=== PATIENT | female | born 1990 | race Caucasian/White ===

== ENCOUNTER → 2020-11-16 | Outpatient (CLI) | payer OTHER, SELFPAY ==
[2020-11-16 09:18] VITALS: BMI 28.7
[2020-11-16 13:23] LABS: Protein, Urine (Random) 19.4 mg/dL (<11.9); Protein:Creat Ratio 127 mg/g CRE (0-200)
[2020-11-16 13:27] LABS: Amphetamine Urine VISTA NEGATIVE (<1000 ng/mL); Barbiturate Urine VISTA NEGATIVE (< 200 ng/mL); Benzodiazepine Urine VISTA NEGATIVE (< 200 ng/mL); Cocaine Urine VISTA NEGATIVE (< 300 ng/mL); Ecstacy Urine VISTA POSITIVE (< 500 ng/mL); Methadone Urine VISTA NEGATIVE (< 300 ng/mL); PCP Urine VISTA NEGATIVE (< 25 ng/mL); THC Urine VISTA NEGATIVE (< 50 ng/mL); Vista UDS pH Range 6
[2020-11-17 20:08] LABS: Chlamydia By Nucleic Acid AMP Negative (Negative)
[2020-11-17 22:40] LABS: Gonococcus By Nucleic Acid AMP Negative (Negative)
== END | disposition home or self-care (01) ==
PROVIDERS: Referring Provider Obstetrics & Gynecology; Visit Provider Obstetrics & Gynecology
DX: O09.90 Supervision of high risk pregnancy, unspecified, unspecified trimester (principal); O10.019 Pre-existing essential hypertension complicating pregnancy, unspecified trimester; Z3A.00 Weeks of gestation of pregnancy not specified
CPT/HCPCS: 80307; 82570; 84156; 87077; 87086; 87088; 87186; 87491; 87591

== ENCOUNTER → 2020-12-07 09:19 | Outpatient (CLI) | payer OTHER, SELFPAY ==
[2020-11-16 09:18] VITALS: BMI 28.7
[2020-12-07 09:52] LABS: Absolute Lymphocyte Count 1.54 X10^3/uL (0.83-4.51); Absolute Neutrophil Count 5.9 X10^3/uL (2.0-7.7); Basophil# 0.02 X10^3/uL; Basophil% 0.2 % (0-1); Eosinophil# 0.07 X10^3/uL; Eosinophils% 0.8 % (0-5); Hematocrit 38.5 % (37-47); Hemoglobin 12.9 g/dL (12.0-15.0); Lymphocyte # 1.54 X10^3/ul (0.83-4.51); Lymphocyte % 18.6 % (19-41); Mean Corp Hgb Conc 33.5 g/dL (32-36); Mean Corpuscular Hgb 29.5 pg (27.0-32.0); Mean Corpuscular Volume 88.1 fL (81-99); Mean Platelet Vol. 10.1 fl (6.2-12.0); Monocyte# 0.67 X10^3/uL; Monocyte% 8.1 % (0-10); NRBC Flagged by Analyzer 0 % (0-5); Neutrophil # 5.94 X10^3/uL (2.7-7.7); Neutrophil % 71.8 % (47-70); Platelet Count 266 K/mm3 (150-450); RBC Distribution Width CV 13.6 % (11.6-14.6); RBC Distribution Width SD 43.8 fl (35.1-43.9); Red Blood Count 4.37 M/mm3 (4.2-5.4); White Blood Count 8.3 K/mm3 (4.4-11.0)
[2020-12-07 10:18] LABS: ALB/GLOB Ratio 0.8 RATIO (0.9-2.4); AST(SGOT) 14 U/L (15-37); Alanine Aminotransfer ALT/SGPT 17 U/L (13-56); Albumin, Serum 2.8 g/dL (3.2-5.0); Alkaline Phosphatase 67 U/L (45-117); Anion Gap 3 (5-15); BUN 7 mg/dL (7-18); BUN/Creat Ratio 12.9 RATIO (10-20); Calcium,Total 8.3 mg/dL (8.5-10.1); Chloride 108 mmol/L (98-107); Creatinine, Serum 0.54 mg/dL (0.55-1.02); EST Glomerular Filtration Rate 141 mL/min (>60); Est Glom Filt Rate - Afr Amer 171 mL/min (>60); Globulin 3.6 g/dL (2.2-4.2); Glucose 112 mg/dL (74-106); Potassium 3.5 mmol/L (3.5-5.1); Protein, Total 6.4 g/dL (6.4-8.2); Sodium Level 139 mmol/L (136-145)
[2020-12-07 10:47] LABS: NATERA MAILED SPECIMEN
[2020-12-07 12:29] LABS: HIV - WCH Non-Reactive (Nonreactive); Hepatitis B Surface Antigen Non-Reactive (Nonreactive); Hepatitis C Antibody Non-Reactive (Nonreactive); Rubella IgG Reactive (Nonreactive); Syphilis Antibodies Non-reactive
== END ==
PROVIDERS: Referring Provider Obstetrics & Gynecology; Visit Provider Obstetrics & Gynecology
DX: O09.90 Supervision of high risk pregnancy, unspecified, unspecified trimester (principal); O10.911 Unspecified pre-existing hypertension complicating pregnancy, first trimester; Z3A.00 Weeks of gestation of pregnancy not specified
CPT/HCPCS: 36415; 80053; 85025; 86703; 86762; 86780; 86803; 86850; 86900; 86901; 87340

== ENCOUNTER → 2021-04-05 09:54 | Outpatient (CLI) | payer OTHER, SELFPAY ==
[2021-04-05 10:35] LABS: Absolute Lymphocyte Count 1.39 X10^3/uL (0.83-4.51); Absolute Neutrophil Count 8.4 X10^3/uL (2.0-7.7); Basophil# 0.02 X10^3/uL; Basophil% 0.2 % (0-1); Eosinophil# 0.07 X10^3/uL; Eosinophils% 0.7 % (0-5); Hematocrit 32.5 % (37-47); Lymphocyte # 1.39 X10^3/ul (0.83-4.51); Lymphocyte % 13.1 % (19-41); Mean Corp Hgb Conc 33.8 g/dL (32-36); Mean Corpuscular Hgb 29.6 pg (27.0-32.0); Mean Corpuscular Volume 87.6 fL (81-99); Mean Platelet Vol. 10.4 fl (6.2-12.0); Monocyte# 0.64 X10^3/uL; NRBC Flagged by Analyzer 0 % (0-5); Neutrophil % 79.4 % (47-70); Platelet Count 262 K/mm3 (150-450); RBC Distribution Width CV 13.2 % (11.6-14.6); RBC Distribution Width SD 42.4 fl (35.1-43.9); Red Blood Count 3.71 M/mm3 (4.2-5.4); White Blood Count 10.6 K/mm3 (4.4-11.0)
[2021-04-05 10:51] LABS: Glucose Challenge Gest 1H 50g 163 mg/dL (70-140)
== END ==
PROVIDERS: Referring Provider Obstetrics & Gynecology; Visit Provider Obstetrics & Gynecology
DX: O09.90 Supervision of high risk pregnancy, unspecified, unspecified trimester (principal); Z3A.00 Weeks of gestation of pregnancy not specified
CPT/HCPCS: 36415; 82950; 85025

== ENCOUNTER → 2021-04-12 06:45 | Outpatient (CLI) | payer OTHER, SELFPAY ==
[2021-04-12 08:20] LABS: Glucose GTT-Gestation. Fasting 92 mg/dL (<105)
[2021-04-12 09:37] LABS: Glucose GTT-Gestational 1 Hr 185 mg/dL (<190)
[2021-04-12 09:40] LABS: Glucose GTT-Gestational 2 Hr 183 mg/dL (<165)
[2021-04-12 10:58] LABS: Glucose GTT-Gestational 3 Hr 132 L (<145)
== END ==
PROVIDERS: Nurse Practitioner Women's Health; Referring Provider Obstetrics & Gynecology; Visit Provider Obstetrics & Gynecology
DX: Z13.1 Encounter for screening for diabetes mellitus (principal)
CPT/HCPCS: 82951; 82952

== ENCOUNTER 2021-05-03 13:00 | Outpatient (RCR) | payer OTHER, SELFPAY | END 2021-05-09 23:59 | LOC: DC 13:00 | PROVIDERS: Visit Provider Nurse Practitioner Women's Health | DX: O24.419 Gestational diabetes mellitus in pregnancy, unspecified control (principal); Z71.3 Dietary counseling and surveillance; Z3A.00 Weeks of gestation of pregnancy not specified | CPT/HCPCS: 97802 ==

== ENCOUNTER → 2021-05-03 13:48 | Outpatient (CLI) | payer OTHER, SELFPAY ==
--- NOTE | 2021-05-03 13:51 | US_ITS ---
EXAM: US , LIMITED : 1992 CLINICAL INDICATION: growth TECHNIQUE: Real-time limited ultrasound of the maternal uterus with image documentation. This report was created using [employer]ug[employer] report generation technology. COMPARISON: None. FINDINGS: FETUS: There is a single intrauterine gestation. The weight is 2040 g. GESTATIONAL AGE: Gestational age 32 weeks 2 days. RAYMOND: RAYMOND is 06/26/2021. BPD: Biparietal diameter is 8.2 cm age 33 weeks 0 days. HC: Head circumference is 30 cm age 33 weeks 1 day. AC: Abdominal circumference 29.2 cm age 33 weeks 1 day. FL: Femur length is 6.0 cm age 31 weeks 2 days. POSITION: The fetus is in cephalic position. HEART RATE: heart rate 142 bpm. PLACENTA: Placenta is anterior. AMNIOTIC FLUID: JABARI measures 18.1 cm. CERVIX: The cervix measures 3.5 cm. US/OB Limited With Biometrics IMPRESSION: Intrauterine gestation with an average ultrasound age 32 weeks 5 days and ultrasound estimated due date of 06/23/2021 at 1738 Reported and signed by: Ry Cramer MD Electronically Signed: Ry Cramer MD at 17:37 EST Tel , Service support ,
== END ==
PROVIDERS: Referring Provider Obstetrics & Gynecology; Visit Provider Obstetrics & Gynecology
DX: O09.93 Supervision of high risk pregnancy, unspecified, third trimester (principal); O16.3 Unspecified maternal hypertension, third trimester; Z3A.32 32 weeks gestation of pregnancy
CPT/HCPCS: 76816

== ENCOUNTER → 2021-05-10 07:54 | Outpatient (CLI) | payer OTHER, SELFPAY ==
--- NOTE | 2021-05-10 08:00 | US_ITS ---
STUDY: SECOND AND THIRD TRIMESTER OBSTETRICAL ULTRASOUND - LIMITED REASON FOR EXAM: Female, 31 years old WEEKLY JABARI LMP: 09/19/2020. PRIOR ULTRASOUND: Comparison is made with prior examination dated 05/03/2021. TECHNIQUE: Transabdominal TECHNICAL QUALITY: Adequate. FINDINGS: There is a single intrauterine fetus. The fetus is in a cephalic presentation. There is demonstrated cardiac activity with a heart rate of 131 bpm. There is a normal amniotic fluid volume. The largest amniotic fluid pocket measures 7.9 cm. The amniotic fluid index (JABARI) is 17.5 cm. The placenta is anterior in location and is not low lying. There are Grade 1 placental changes. The cervix measures 4.1 cm in length. BIOMETRY: Age by LMP: 33 weeks, 2 days. RAYMOND by LMP: 06/26/2021. US/OB Limited (No Biometrics) IMPRESSION: Normal amniotic fluid. Electronically Signed: Dl Stevens MD at 15:14 EST , Service support ,
== END ==
PROVIDERS: Visit Provider Obstetrics & Gynecology
DX: O10.913 Unspecified pre-existing hypertension complicating pregnancy, third trimester (principal); Z3A.33 33 weeks gestation of pregnancy
CPT/HCPCS: 76815

== ENCOUNTER → 2021-05-17 07:57 | Outpatient (CLI) | payer OTHER, SELFPAY ==
--- NOTE | 2021-05-17 08:00 | US_ITS ---
STUDY: SECOND AND THIRD TRIMESTER OBSTETRICAL ULTRASOUND - LIMITED REASON FOR EXAM: Female, 31 years old WEEKLY JABARI LMP: 09/19/2020. PRIOR ULTRASOUND: Comparison is made with prior examination of 05/10/2021. TECHNIQUE: Transabdominal TECHNICAL QUALITY: Adequate. FINDINGS: There is a single intrauterine fetus. The fetus is in a cephalic presentation. There is demonstrated cardiac activity with a heart rate of 141 bpm. There is a normal amniotic fluid volume. The largest amniotic fluid pocket measures 5.2 cm. The amniotic fluid index (JABARI) is 14.3 cm. The placenta is anterior in location and is not low lying. There are Grade 1 placental changes. The cervix measures 3.5 cm in length. BIOMETRY: Age by LMP: 34 weeks, 2 days. RAYMOND by LMP: 06/26/2021. US/OB Limited (No Biometrics) IMPRESSION: Normal amniotic fluid. Electronically Signed: Dl Stevens MD at 15:14 EST , Service support ,
== END ==
PROVIDERS: Referring Provider Obstetrics & Gynecology; Visit Provider Obstetrics & Gynecology
DX: Z34.93 Encounter for supervision of normal pregnancy, unspecified, third trimester (principal); Z3A.34 34 weeks gestation of pregnancy
CPT/HCPCS: 76815

== ENCOUNTER → 2021-05-24 07:56 | Outpatient (CLI) | payer OTHER, SELFPAY ==
--- NOTE | 2021-05-24 08:04 | US_ITS ---
STUDY: SECOND AND THIRD TRIMESTER OBSTETRICAL ULTRASOUND - LIMITED REASON FOR EXAM: Female, 31 years old WEEKLY JABARI LMP: 09/19/2020. PRIOR ULTRASOUND: Comparison is made with prior examination dated 05/17/2021. TECHNIQUE: Transabdominal TECHNICAL QUALITY: Adequate. FINDINGS: There is a single intrauterine fetus. The fetus is in a cephalic presentation. There is demonstrated cardiac activity with a heart rate of 132 bpm. There is a normal amniotic fluid volume. The largest amniotic fluid pocket measures 5.4 cm. The amniotic fluid index (JABARI) is 11.1 cm. The placenta is anterior in location and is not low lying. There are Grade 1 placental changes. The cervix measures 4.5 cm in length. BIOMETRY: Age by LMP: 35 weeks, 2 days. RAYMOND by LMP: 06/26/2021. US/OB Limited (No Biometrics) IMPRESSION: Normal amniotic fluid. Electronically Signed: Dl Stevens MD at 11:50 EST , Service support ,
== END ==
PROVIDERS: Referring Provider Obstetrics & Gynecology; Visit Provider Obstetrics & Gynecology
DX: Z34.93 Encounter for supervision of normal pregnancy, unspecified, third trimester (principal); Z3A.35 35 weeks gestation of pregnancy
CPT/HCPCS: 76815

== ENCOUNTER → 2021-05-31 12:02 | Outpatient (CLI) | payer OTHER, SELFPAY ==
--- NOTE | 2021-05-31 12:18 | US_ITS ---
STUDY: SECOND AND THIRD TRIMESTER OBSTETRICAL ULTRASOUND REASON FOR EXAM: Female, 31 years old GROWTH . Amniotic fluid index. LMP: 09/19/2020. TECHNIQUE: Transabdominal TECHNICAL QUALITY: Adequate. PRIOR ULTRASOUND: Comparison is made with prior examination dated 05/24/2021. FINDINGS: There is a single intrauterine fetus. The fetus is in a cephalic presentation. There is demonstrated cardiac activity with a heart rate of 127 bpm. There is a normal amniotic fluid volume. The largest amniotic fluid pocket measures 5.5 cm. The amniotic fluid index (JABARI) is 11.9 cm. The placenta is anterior in location and is not low lying. There are Grade 1 placental changes. The cervix measures 3.3 cm in length. The adnexal regions are not visualized. BIOMETRY: BPD: 8.91 cm: 36 weeks, 0 days HC: 32.81 cm: 37 weeks, 1 days AC: 31.88 cm: 35 weeks, 5 days FL: 6.67 cm: 34 weeks, 2 days CI: 78% FL/BPD: 75% FL/HC: FL/AC: 21% HC/AC: 1.03 age by current US: 36 weeks, 2 days. RAYMOND by current US: 06/26/2021. Estimated weight: 2710 grams, +/- 407 grams, 33 %. age by prior US: 36 weeks, 5 days. RAYMOND by prior US: 06/23/2021. Age by LMP: 36 weeks, 2 days. RAYMOND by LMP: 06/26/2021. US/OB Limited With Biometrics IMPRESSION: Single live intrauterine gestation with mean gestational age of 36 weeks and 5 days. The measurements obtained today fall within the normal expected range. Electronically Signed: Dl Stevens MD at 9:38 EST , Service support ,
[2021-05-31 12:24] LABS: Absolute Neutrophil Count 8.8 X10^3/uL (2.0-7.7); Basophil# 0.03 X10^3/uL; Basophil% 0.3 % (0-1); Eosinophil# 0.08 X10^3/uL; Eosinophils% 0.7 % (0-5); Hematocrit 33.1 % (37-47); Hemoglobin 10.6 g/dL (12.0-15.0); Lymphocyte % 16.2 % (19-41); Mean Corpuscular Hgb 26.5 pg (27.0-32.0); Mean Corpuscular Volume 82.8 fL (81-99); Monocyte# 0.83 X10^3/uL; Monocyte% 7.1 % (0-10); NRBC Flagged by Analyzer 0 % (0-5); Neutrophil # 8.76 X10^3/uL (2.7-7.7); Neutrophil % 74.8 % (47-70); Platelet Count 256 K/mm3 (150-450); RBC Distribution Width CV 13.3 % (11.6-14.6); RBC Distribution Width SD 40.1 fl (35.1-43.9); White Blood Count 11.7 K/mm3 (4.4-11.0)
[2021-05-31 12:46] LABS: Creatinine, Urine (random) < 13.00 mg/dL (NO RANGE EST.); Protein, Urine (Random) < 6.0 mg/dL (<11.9)
[2021-05-31 13:06] LABS: ALB/GLOB Ratio 0.6 RATIO (0.9-2.4); AST(SGOT) 19 U/L (15-37); Alanine Aminotransfer ALT/SGPT 22 U/L (13-56); Albumin, Serum 2.4 g/dL (3.2-5.0); Alkaline Phosphatase 167 U/L (45-117); Anion Gap 10 (5-15); BUN 9 mg/dL (7-18); BUN/Creat Ratio 15.6 RATIO (10-20); Calcium,Total 8.6 mg/dL (8.5-10.1); Chloride 105 mmol/L (98-107); Creatinine, Serum 0.58 mg/dL (0.55-1.02); EST Glomerular Filtration Rate 131 mL/min (>60); Est Glom Filt Rate - Afr Amer 159 mL/min (>60); Globulin 4.2 g/dL (2.2-4.2); Glucose 87 mg/dL (74-106); Potassium 4.1 mmol/L (3.5-5.1); Protein, Total 6.6 g/dL (6.4-8.2); Sodium Level 139 mmol/L (136-145)
== END ==
PROVIDERS: Obstetrics & Gynecology; Referring Provider Obstetrics & Gynecology; Visit Provider Obstetrics & Gynecology
DX: O09.93 Supervision of high risk pregnancy, unspecified, third trimester (principal); O16.3 Unspecified maternal hypertension, third trimester; Z3A.36 36 weeks gestation of pregnancy
CPT/HCPCS: 36415; 76816; 80053; 82570; 84156; 85025; 87081

== ENCOUNTER → 2021-06-06 12:24 | Outpatient (CLI) | payer OTHER, SELFPAY ==
--- NOTE | 2021-06-06 12:27 | US_ITS ---
STUDY: SECOND AND THIRD TRIMESTER OBSTETRICAL ULTRASOUND - LIMITED REASON FOR EXAM: Female, 31 years old JABARI check LMP: 09/19/2020 PRIOR ULTRASOUND: 05/31/2021 TECHNIQUE: Transabdominal TECHNICAL QUALITY: Adequate. FINDINGS: There is a single intrauterine fetus. The fetus is in a cephalic presentation. There is demonstrated cardiac activity with a heart rate of 125 bpm. There is a normal amniotic fluid volume. The largest amniotic fluid pocket measures 5.8 cm. The amniotic fluid index (JABARI) is 16.5 cm. Both representing an increase since the previous study. The placenta is anterior in location and is not low lying. There are Grade 1 placental changes. The cervix measures 3.1 cm in length. EGA by LMP is 37 weeks 1 day with RAYMOND of 06/26/2021 US/OB Limited (No Biometrics) IMPRESSION: Single live intrauterine at 37 weeks 1 day by LMP. Heart rate at 125 bpm. Largest pocket of fluid is 5.8 cm with JABARI total of 16.5 cm. Both representing an increase since the previous study Electronically Signed: Alvin Cuevas MD at 13:44 EST , Service support ,
[2021-06-06 17:25] LABS: Protein, Urine (Random) 19.2 mg/dL (<11.9); Protein:Creat Ratio 480 mg/g CRE (0-200)
== END ==
PROVIDERS: Referring Provider Obstetrics & Gynecology; Visit Provider Obstetrics & Gynecology
DX: O10.913 Unspecified pre-existing hypertension complicating pregnancy, third trimester (principal); Z3A.37 37 weeks gestation of pregnancy
CPT/HCPCS: 76815; 82570; 84156

== ENCOUNTER 2021-06-07 18:53 | Inpatient (IN) | payer OTHER, SELFPAY ==
[2021-06-07] VITALS (27 sets, daily range): BP systolic 138–171; BP diastolic 79–95; PULSE 59–83; RESP 16–18; TEMP 36.2–37.2; O2SAT 98–100; BMI 30.7
[2021-06-07] MEDS: Lactated Ringers 1,000 ML 50 ML IV (19:35)
[2021-06-07 19:56] LABS: Bedside Glucose 124 mg/dL (70-110)
[2021-06-07 20:10] LABS: Absolute Lymphocyte Count 2.13 X10^3/uL (0.83-4.51); Basophil# 0.04 X10^3/uL; Basophil% 0.4 % (0-1); Eosinophils% 0.9 % (0-5); Hematocrit 29.2 % (37-47); Hemoglobin 9.5 g/dL (12.0-15.0); Lymphocyte # 2.13 X10^3/ul (0.83-4.51); Lymphocyte % 18.9 % (19-41); Mean Corp Hgb Conc 32.5 g/dL (32-36); Mean Corpuscular Hgb 26.8 pg (27.0-32.0); Mean Corpuscular Volume 82.3 fL (81-99); Mean Platelet Vol. 11.5 fl (6.2-12.0); Monocyte# 0.92 X10^3/uL; Monocyte% 8.2 % (0-10); NRBC Flagged by Analyzer 0 % (0-5); Neutrophil # 8.02 X10^3/uL (2.7-7.7); Platelet Count 234 K/mm3 (150-450); RBC Distribution Width CV 13.7 % (11.6-14.6); RBC Distribution Width SD 40.9 fl (35.1-43.9); Red Blood Count 3.55 M/mm3 (4.2-5.4); White Blood Count 11.3 K/mm3 (4.4-11.0)
[2021-06-07] MEDS: 0.9% Normal Saline Single 100 ML IV.SOLN. INTRA-UTER (20:19)
[2021-06-07] MEDS: Oxytocin 30 units/NS 500 ml 30 UNITS/500 ML IV.SOLN IV (20:29)
[2021-06-07] MEDS: Labetalol 100 MG Tablet PO (20:48)
[2021-06-07 21:16] LABS: Bedside Glucose 91 mg/dL (70-110)
[2021-06-07] MEDS: NIFEdipine 10 MG Capsule PO (22:19)
[2021-06-07] MEDS: Magnesium Sulfate 4gm/100mL 4 GM/100 ML IV.SOLN. IV ×2 (22:24→22:48)
[2021-06-07] MEDS: Magnesium Sulfate 20 GM/500 ML BAG IV (23:02)
[2021-06-08] VITALS (70 sets, daily range): BP systolic 113–154; BP diastolic 56–86; PULSE 59–90; RESP 16–18; TEMP 35.9–37; O2SAT 97–100
[2021-06-08 01:25] LABS: Bedside Glucose 104 mg/dL (70-110)
[2021-06-08 05:45] LABS: Bedside Glucose 116 mg/dL (70-110)
[2021-06-08] MEDS: Ondansetron 4 MG/2 ML Vial IV ×2 (06:30→12:18)
[2021-06-08] MEDS: 0.9% Saline Lock 10 ML Syringe IV ×2 (06:30→12:18)
--- NOTE | 2021-06-08 07:37 | HP.PCM.OB_ITS ---
HPI - General General Date of Admission: 06/07/21 HPI Narrative LYLE JACINTO, is a 31 F who presents for IOL sec chtn with SI preeclampsia. elevated bps upon admission eventually signifcant enough to start magnesium and treat with procardia. no castellano bv n v or ruq pain Maternal Data Information RYAMOND Calculator Estimated Delivery Date Method Current WG Current Estimate 06/26/21 LMP (Certain) 37w 3d PFSH FOR[facility], [facility]–1983 Medical History (Updated 06/08/21 @ 07:[address] Lesley Ferguson MD) Gestational diabetes HTN (hypertension) Pre-eclampsia Home Medications docosahexaenoic acid 200 mg capsule 200 mg PO DAILY 08/10/20 [History Last Taken 1 Day Ago ~06/06/21] famotidine 20 mg tablet 20 mg PO DAILY PRN 08/10/20 [History Last Taken 06/07/21 12:00] labetalol 100 mg tablet 100 mg PO BID 08/10/20 [History Last Taken 06/07/21 12:00] blood sugar diagnostic #100 ea 04/12/21 [Rx Last Taken Unknown] blood-glucose meter #1 ea 04/12/21 [Rx Last Taken Unknown] aspirin 81 mg chewable tablet 81 mg PO DAILY 04/14/21 [History Last Taken 06/07/21 12:00] Allergy/AdvReac Type Severity Reaction Status Date / Time No Known Allergies Allergy Verified 06/07/21 19:32 Family History Grandmother Diabetes Kidney disease Grandfather Parkinsons disease Mother Scoliosis Father Hypertension Hyperlipidemia Surgical History History of oral surgery Social History household members: spouse current occupational status: employed 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 history of recent travel: No sexually active: Yes Smoking Status: Never smoker alcohol intake: current alcohol intake frequency: a few times a month substance use type: does not use diet: vegetarian what type of physical activity do you participate in: aerobics frequency: 3-4 times per week seatbelt use: always do you feel safe at home: Yes additional social history: - Adelfo History 1 Elective abortions Hx Para 0 Spontaneous abortions Hx # Term Pregnancies Ectopic pregnancies Hx # Pregnancies Multiple births # of living children Visit Details Expected Delivery Route/Plan Labor Preferences- CB/BF classes: enc labor support person: Vicente labor intervention preferences: [] pain management options preferred: epidural if needed cut cord/dad catch: [] : [] PP control planned: [] discussed possible routes of delivery and associated risks: [] special requests: [] Plans covid status: vaccinated flu vaccine: given tdap vaccine: due rhogam: na LARC form signed: declined movement and labor precautions reviewed. Problem list reviewed and updated with the most current plan of care details and appropriate orders placed. Relevant counseling for the gestational age provided. Continue routine care and follow up unless otherwise noted in visit notes/problem list details OB Flowsheet Initial Weight: 164 lb Date -?-?-?-?-?-?-?-?-?-?-?-?- EGA Weight BP Urine Prot -?-?-?-?-?-?-?-?-?-?-?-?- Glucose FHR FuHt Pres Dilation -?-?-?-?-?-?-?-?-?-?-?-?- Effaced St Visit Note 11/16/20 -?-?-?-?-?-?-?-?-?-?-?-?- 8w 2d 164 lb 6 oz (+6 oz) 148/96 -?-?-?-?-?-?-?-?-?-?-?-?- 175 -?-?-?-?-?-?-?-?-?-?-?-?- GP - CRL 17mm co nsistent with LMP 12/14/20 -?-?-?-?-?-?-?-?-?-?-?-?- 12w 2d 162 lb 2 oz (-1 lb 14 oz) 138/90 Negative -?-?-?-?-?-?-?-?-?-?-?-?- Negative 160 -?-?-?-?-?-?-?-?-?-?-?-?- GP - no cramping . Small amount of spotting on Saturday. Anatomy scan ordered. 01/11/21 -?-?-?-?-?-?-?-?-?-?-?-?- 16w 2d 164 lb 4 oz (+4 oz) 138/78 Negative -?-?-?-?-?-?-?-?-?-?-?-?- Negative 148 -?-?-?-?-?-?-?-?-?-?-?-?- MH-NO VB, LOF. A natomy US 02/01 with MFM 02/08/21 -?-?-?-?-?-?-?-?-?-?-?-?- 20w 2d 166 lb 4 oz (+2 lb 4 oz) 132/86 Negative -?-?-?-?-?-?-?-?-?-?-?-?- Negative 140 -?-?-?-?-?-?-?-?-?-?-?-?- GP - no cramping or bleeding. +FM. Increased milky discharge consistent with physiologic discharge. 03/08/21 -?-?-?-?-?-?-?-?-?-?-?-?- 24w 2d 169 lb 2 oz (+5 lb 2 oz) 120/80 Negative -?-?-?-?-?-?-?-?-?-?-?-?- Negative 140 24 -?-?-?-?-?-?-?-?-?-?-?-?- SM- no vb lof go od fm no regular ctx 04/05/21 -?-?-?-?-?-?-?-?-?-?-?-?- 28w 2d 176 lb (+12 lb) 130/80 Negative -?-?-?-?-?-?-?-?-?-?-?-?- Negative 145 28 -?-?-?-?-?-?-?-?-?-?-?-?- SM- no vb lof go od fm no reuglar ctx 04/14/21 -?-?-?-?-?-?-?-?-?-?-?-?- 29w 4d 174 lb (+10 lb) 124/80 -?-?-?-?-?-?-?-?-?-?-?-?- -?-?-?-?-?-?-?-?-?-?-?-?- 04/19/21 -?-?-?-?-?-?-?-?-?-?-?-?- 30w 2d 174 lb (+10 lb) 100/72 100/72 -?-?-?-?-?-?-?-?-?-?-?-?- -?-?-?-?-?-?-?-?-?-?-?-?- 05/02/21 -?-?-?-?-?-?-?-?-?-?-?-?- 32w 1d -?-?-?-?-?-?-?-?-?-?-?-?- -?-?-?-?-?-?-?-?-?-?-?-?- 05/03/21 -?-?-?-?-?-?-?-?-?-?-?-?- 32w 2d 174 lb 2 oz (+10 lb 2 oz) 120/90 Negative -?-?-?-?-?-?-?-?-?-?-?-?- Negative 130 -?-?-?-?-?-?-?-?-?-?-?-?- JV- glucose leve ls well controlled. Dr. Baig following. nst reactive. bp stable. planning for 38 week IOL 05/10/21 -?-?-?-?-?-?-?-?-?-?-?-?- 33w 2d 173 lb 2 oz (+9 lb 2 oz) 130/78 Negative -?-?-?-?-?-?-?-?-?-?-?-?- Negative 140 -?-?-?-?-?-?-?-?-?-?-?-?- MH-NST only reac tive 05/17/21 -?-?-?-?-?-?-?-?-?-?-?-?- 34w 2d 174 lb (+10 lb) 118/68 Trace -?-?-?--?-?-?-?-?-?-?-?-?- Negative 146 -?-?-?-?-?-?-?-?-?-?-?-?- MH-No Vb, LOF. G ood FM. Reactive NST. Growth US at 36wk. Glucose readings WNL 05/24/21 -?-?-?-?-?-?-?-?-?-?-?-?- 35w 2d 177 lb (+13 lb) 102/70 Negative -?-?-?-?-?-?-?-?-?-?-?-?- Negative 150 -?-?-?-?-?-?-?-?-?-?-?-?- MH-NST only reac tive. US today pending 05/31/21 -?-?-?-?-?-?-?-?-?-?-?-?- 36w 2d 177 lb 4 oz (+13 lb 4 oz) 130/90 Negative -?-?-?-?-?-?-?-?-?-?-?-?- Negative 120 36 Cephalic -?-?-?-?-?-?-?-?-?-?-?-?- JV- NST reactive . GBS collected. pressure elevated more this week today and at home. PIH labs with KS:Cr ratio ordered. 06/06/21 -?-?-?-?-?-?-?-?-?-?-?-?- 37w 1d 179 lb (+15 lb) 138/82 Negative -?-?-?-?-?-?-?-?-?-?-?-?- Negative 130 Cephalic 1 -?-?-?-?-?-?-?-?-?-?-?-?- 50 -2 SM- no vb lof good fm no reuglar ctx discussed IOL 06/07/21 -?-?-?-?-?-?-?-?-?-?-?-?- 37w 2d 178 lb 12.718 oz (+14 lb 12.718 oz) 139/89 166/95 165/93 171/94 159/89 159/89 143/81 143/81 138/79 138/79 138/81 138/81 145/81 145/81 146/72 146/72 121/69 121/69 134/83 134/83 118/59 118/59 129/78 129/78 132/73 132/73 136/86 136/86 142/79 142/79 -?-?-?-?-?-?-?-?-?-?-?-?- -?-?-?-?-?-?-?-?-?-?-?-?- NST FHR Rate Baby A Baseline: 130 Variability:: Moderate Accelerations:: 15 x 15 Decelerations:: None NST Reactive:: Yes FHR Category:: Category I Uterine Activity:: irregular ROS Constitutional Constitutional: Reports systems reviewed and no addt'l complaints, except as documented Eyes Eyes: Denies change in vision ENT HEENT: Reports systems reviewed and no addt'l complaints, except as documented; Denies headache(s) Cardiovascular Cardiovascular: Reports systems reviewed and no addt'l complaints, except as documented; Denies chest pain or dyspnea Respiratory/Chest Respiratory/Chest: Reports systems reviewed and no addt'l complaints, except as documented Gastrointestinal Gastrointestinal: Reports systems reviewed and no addt'l complaints, except as documented; Denies abdominal pain Genitourinary Genitourinary: Reports systems reviewed and no addt'l complaints, except as documented, contractions Details: present (irregular) and movement Details: present; Denies dysuria or genital lesions Musculoskeletal Musculoskeletal: Reports systems reviewed and no addt'l complaints, except as documented Neurologic Neurologic: Reports systems reviewed and no addt'l complaints, except as documented Endocrine Endocrinology: Reports systems reviewed and no addt'l complaints, except as documented Vital Signs Vital Signs Vital Signs: 06/07/21 19:26 06/07/21 20:34 06/07/21 20:35 Temperature 98.8 F 99.0 F 98.7 F Temperature Source Temporal Temporal Pulse Rate 81 64 Respiratory Rate Respiratory Effort Respiratory Depth Respiratory Pattern Blood Pressure 139/89 H 166/95 H Blood Pressure Mean BP Systolic 139 166 BP Diastolic 89 95 Blood Pressure Source Blood Pressure Position Blood Pressure Location Pulse Ox 99 99 Oxygen Delivery Method 06/07/21 21:46 06/07/21 21:47 06/07/21 22:04 Temperature 98.8 F Temperature Source Pulse Rate 59 L 60 61 Respiratory Rate Respiratory Effort Respiratory Depth Respiratory Pattern Blood Pressure 165/93 H 171/94 H Blood Pressure Mean BP Systolic 165 171 BP Diastolic 93 94 Blood Pressure Source Blood Pressure Position Blood Pressure Location Pulse Ox 99 Oxygen Delivery Method 06/07/21 22:18 06/07/21 22:25 06/07/21 22:32 Temperature 98.7 F Temperature Source Temporal Pulse Rate 67 74 72 Respiratory Rate 18 Respiratory Effort Normal Respiratory Depth Normal Respiratory Pattern Normal Blood Pressure 159/89 H 159/89 H Blood Pressure Mean 112 BP Systolic 159 BP Diastolic 89 Blood Pressure Source Monitor Blood Pressure Position Semi-Fowlers Blood Pressure Location Right Arm Pulse Ox 98 98 Oxygen Delivery Method Room Air 06/07/21 22:37 06/07/21 22:38 06/07/21 22:39 Temperature 97.8 F Temperature Source Temporal Pulse Rate 82 71 77 Respiratory Rate 18 Respiratory Effort Normal Non-Labored Respiratory Depth Normal Respiratory Pattern Normal Blood Pressure 143/81 H 143/81 H Blood Pressure Mean 101 BP Systolic 143 BP Diastolic 81 Blood Pressure Source Monitor Blood Pressure Position Semi-Fowlers Blood Pressure Location Right Arm Pulse Ox 99 99 Oxygen Delivery Method Room Air 06/07/21 22:42 06/07/21 22:47 06/07/21 22:52 Temperature Temperature Source Pulse Rate 74 83 80 Respiratory Rate Respiratory Effort Respiratory Depth Respiratory Pattern Blood Pressure Blood Pressure Mean BP Systolic BP Diastolic Blood Pressure Source Blood Pressure Position Blood Pressure Location Pulse Ox 98 99 98 Oxygen Delivery Method 06/07/21 22:55 06/07/21 22:57 06/07/21 23:02 Temperature Temperature Source Pulse Rate 81 73 73 Respiratory Rate 18 Respiratory Effort Respiratory Depth Respiratory Pattern Blood Pressure 138/79 H Blood Pressure Mean 98 BP Systolic 138 BP Diastolic 79 Blood Pressure Source Monitor Blood Pressure Position Semi-Fowlers Blood Pressure Location Right Arm Pulse Ox 99 98 98 Oxygen Delivery Method Room Air 06/07/21 23:07 06/07/21 23:09 06/07/21 23:10 Temperature 97.2 F L Temperature Source Temporal Pulse Rate 69 67 67 Respiratory Rate 18 Respiratory Effort Normal Non-Labored Respiratory Depth Normal Respiratory Pattern Normal Blood Pressure 138/81 H 138/81 H Blood Pressure Mean 100 BP Systolic 138 BP Diastolic 81 Blood Pressure Source Monitor Blood Pressure Position Semi-Fowlers Blood Pressure Location Right Arm Pulse Ox 99 98 Oxygen Delivery Method Room Air 06/07/21 23:11 06/07/21 23:12 06/07/21 23:17 Temperature 97.2 F L Temperature Source Pulse Rate 72 71 Respiratory Rate Respiratory Effort Respiratory Depth Respiratory Pattern Blood Pressure Blood Pressure Mean BP Systolic BP Diastolic Blood Pressure Source Blood Pressure Position Blood Pressure Location Pulse Ox 100 99 Oxygen Delivery Method 06/07/21 23:40 06/07/21 23:41 06/07/21 23:42 Temperature 97.2 F L 97.2 F L Temperature Source Temporal Pulse Rate 64 64 Respiratory Rate 16 Respiratory Effort Normal Non-Labored Respiratory Depth Normal Respiratory Pattern Normal Blood Pressure 145/81 H Blood Pressure Mean 102 BP Systolic 145 BP Diastolic 81 Blood Pressure Source Monitor Blood Pressure Position Semi-Fowlers Blood Pressure Location Right Arm Pulse Ox 99 99 Oxygen Delivery Method Room Air 06/08/21 00:12 06/08/21 00:22 06/08/21 01:00 Temperature 97.1 F L 97.2 F L 97.4 F L Temperature Source Temporal Temporal Pulse Rate 60 59 L Respiratory Rate 16 16 Respiratory Effort Normal Non-Labored Respiratory Depth Normal Respiratory Pattern Normal Blood Pressure 146/72 H 121/69 H Blood Pressure Mean 96 86 BP Systolic 146 121 BP Diastolic 72 69 Blood Pressure Source Monitor Monitor Blood Pressure Position Semi-Fowlers Left Lateral Blood Pressure Location Right Arm Right Arm Pulse Ox 97 99 Oxygen Delivery Method Room Air Room Air 06/08/21 01:01 06/08/21 02:07 06/08/21 02:08 Temperature 97.5 F L 97.5 F L Temperature Source Temporal Temporal Temporal Pulse Rate 72 72 Respiratory Rate 18 Respiratory Effort Respiratory Depth Respiratory Pattern Blood Pressure 134/83 H 134/83 H Blood Pressure Mean 100 BP Systolic 134 BP Diastolic 83 Blood Pressure Source Monitor Blood Pressure Position Semi-Fowlers Blood Pressure Location Right Arm Pulse Ox 99 99 99 Oxygen Delivery Method Room Air 06/08/21 03:02 06/08/21 03:03 06/08/21 03:06 Temperature 97.5 F L 97.5 F L Temperature Source Temporal Pulse Rate 76 76 Respiratory Rate 16 Respiratory Effort Normal Non-Labored Respiratory Depth Normal Respiratory Pattern Normal Blood Pressure 118/59 L 118/59 L Blood Pressure Mean 78 BP Systolic 118 BP Diastolic 59 Blood Pressure Source Monitor Blood Pressure Position Right Lateral Blood Pressure Location Left Arm Pulse Ox 99 Oxygen Delivery Method Room Air 06/08/21 03:53 06/08/21 03:54 06/08/21 03:57 Temperature 97.7 F L 97.7 F L Temperature Source Temporal Pulse Rate 77 77 Respiratory Rate 16 Respiratory Effort Respiratory Depth Respiratory Pattern Blood Pressure 129/78 H 129/78 H Blood Pressure Mean 95 BP Systolic 129 BP Diastolic 78 Blood Pressure Source Blood Pressure Position Blood Pressure Location Pulse Ox 98 Oxygen Delivery Method Room Air 06/08/21 05:03 06/08/21 05:04 06/08/21 06:09 Temperature 97.3 F L 97.5 F L Temperature Source Temporal Temporal Temporal Pulse Rate 90 90 Respiratory Rate 16 18 Respiratory Effort Normal Non-Labored Respiratory Depth Normal Respiratory Pattern Normal Blood Pressure 132/73 H 136/86 H Blood Pressure Mean 92 102 BP Systolic 132 136 BP Diastolic 73 86 Blood Pressure Source Monitor Monitor Blood Pressure Position Right Lateral Sitting Blood Pressure Location Right Arm Right Arm Pulse Ox 98 98 100 Oxygen Delivery Method Room Air Room Air 06/08/21 07:09 06/08/21 07:10 06/08/21 07:22 Temperature 97.6 F L 97.6 F L 97.5 F L Temperature Source Temporal Temporal Pulse Rate 76 78 78 Respiratory Rate 16 Respiratory Effort Normal Non-Labored Respiratory Depth Normal Respiratory Pattern Normal Blood Pressure 142/79 H 142/79 H Blood Pressure Mean 100 BP Systolic 142 BP Diastolic 79 Blood Pressure Source Monitor Blood Pressure Position Semi-Fowlers Blood Pressure Location Right Arm Pulse Ox 99 99 Oxygen Delivery Method Room Air Weight Weight: 178 lb 12.718 oz Body Mass Index (BMI) 30.7 Physical Exam Const alert, oriented x3, no apparent distress and healthy appearing HEENT normocephalic and moist oral mucous membranes Head and Scalp: atraumatic Neck full ROM, no lymphadenopathy, supple and thyroid normal General: trachea midline Lymph Lymphatic: no lymphadenopathy noted Chest inspection of chest normal Resp normal respiratory effort Cardio regular rate GI normal to inspection, nondistended, normoactive bowel sounds, soft to palpation and non-tender Inspection: gravid external exam normal Manual OB Exam: estimated gestational size appropriate, presentation cephalic, dilated, effaced and station Extremity normal to inspection General Extremity: Negative for edema Skin no rashes or lesions noted Neuro no focal motor deficits and deep tendon reflexes 2+ bilaterally Motor Exam: strength 5/5 throughout and clonus absent Psych mental status grossly normal Labs Labs Labs: Blood Type O POSITIVE Antibody Screen NEGATIVE Hct 29.2 % (37-47) L Hgb 9.5 g/dL (12.0-15.0) L Obstetrics US Syphilis Total Ab Non-reactive Rubella IgG Antibody Reactive (Nonreactive) Hep Bs Antigen Non-Reactive (Nonreactive) Neisseria gonorrhoeae DNA (VIKTOR) Negative (Negative) HIV 1&2 Antibody Non-Reactive (Nonreactive) Glucose 1 Hr 50 gm 163 mg/dL (70-140) H Miscellaneous Test Assessment & Plan (1) Gestational diabetes: QUALIFIERS: Gestational diabetes mellitus control: diet-controlled Trimester: third trimester Qualified Code(s): O24.410 - Gestational diabetes mellitus in , diet controlled COMMENT: nutrition and Endo referrals sent. diet controlled (2) Vegetarian diet: COMMENT: Encourages protein intake. 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 GBS neg (5) Chronic hypertension: COMMENT: controlled with labetolol; baseline labs with NOB. Growth at 32w & 34w nl. NSTs weekly at 32w. Delivery at 38w. (6) Pre-eclampsia superimposed on chronic hypertension: COMMENT: IOL pit fb, started on magnesium sulfate and procardia
--- NOTE | 2021-06-08 07:39 | PN_ITS ---
Progress Note fb came out overnight, doing well, had pitocin washout due to arrest of dilation at 4-5 cm current tracing: FHT: 130 Moderate variability reactive no decelerations category I tracing [place]: q 2-4 Contractions reviewed tracing abnormalities since last note: no significant A/P: pit fb and AROM PRN
[2021-06-08] MEDS: Lactated Ringers 500 ML 999 ML IV (09:29)
[2021-06-08 09:35] LABS: Bedside Glucose 105 mg/dL (70-110)
[2021-06-08] MEDS: Magnesium Sulfate 20 GM/500 ML BAG IV (09:57)
[2021-06-08] MEDS: fentaNYL-bupivacaine (epidural) 100 ML BAG EPIDURAL ×3 (10:50→21:33)
[2021-06-08] MEDS: Labetalol 100 MG Tablet PO ×2 (11:05→22:23)
--- NOTE | 2021-06-08 14:23 | NURSING ---
dose reduced to 1gm/hr per physician order
[2021-06-08 14:30] LABS: Bedside Glucose 98 mg/dL (70-110)
[2021-06-08 17:50] LABS: Bedside Glucose 124 mg/dL (70-110)
[2021-06-08 18:25] LABS: Bedside Glucose 101 mg/dL (70-110)
[2021-06-08 19:51] LABS: Bedside Glucose 111 mg/dL (70-110)
[2021-06-08] MEDS: Lactated Ringers 1,000 ML 200 ML IV (20:22)
[2021-06-08] MEDS: Oxytocin 30 units/NS 500 ml 30 UNITS/500 ML IV.SOLN 18 UNITS IV (20:23)
[2021-06-08 20:31] LABS: Bedside Glucose 95 mg/dL (70-110)
[2021-06-08 21:41] LABS: Bedside Glucose 107 mg/dL (70-110)
--- NOTE | 2021-06-08 23:03 | NURSING ---
per connect charting, pitocin was increased to 14ml/hr at 1829 and then increased to 16ml/hr at 1910, titrations were not documented on AUG by previous shift
[2021-06-08 23:50] LABS: Bedside Glucose 90 mg/dL (70-110)
[2021-06-08 23:50] LABS: Bedside Glucose 95 mg/dL (70-110)
[2021-06-09] VITALS (92 sets, daily range): BP systolic 104–173; BP diastolic 44–99; PULSE 60–97; RESP 14–16; TEMP 36.1–37.3; O2SAT 90–100
[2021-06-09] MEDS: Ondansetron 4 MG/2 ML Vial IV (01:05)
[2021-06-09] MEDS: Magnesium Sulfate 20 GM/500 ML BAG IV ×3 (01:19→20:43)
[2021-06-09] MEDS: Lactated Ringers 1,000 ML 50 ML IV (02:01)
--- NOTE | 2021-06-09 02:05 | EX.PCM.OBRPT ---
Assessment & Plan (1) Pre-eclampsia superimposed on chronic hypertension: COMMENT: IOL pit fb, started on magnesium sulfate and procardia (2) Chronic hypertension: COMMENT: controlled with labetolol; baseline labs with NOB. Growth at 32w & 34w nl. NSTs weekly at 32w. Delivery at 38w. (3) : QUALIFIERS: Weeks of gestation: 37 weeks Qualified Code(s): Z3A.37 - 37 weeks gestation of COMMENT: IOL 06/12/21 @ 7am declines carrier, low risk, declined afp; NL anatomy. GBS neg (4) Supervision of high risk , antepartum: COMMENT: PRR RAYMOND 06/26/21 gisel Sow Spouse Adelfo (5) Vegetarian diet: COMMENT: Encourages protein intake. 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 diet controlled (7) Vaginal delivery: COMMENT: gisel Sow IOL chtn with SI preeclampsia 37 SM Maternal Data Information RAYMOND Calculator Estimated Delivery Date Method Current WG Current Estimate 06/26/21 LMP (Certain) 37w 4d Vaginal Delivery Operative Information Date of Procedure: 06/09/21 Pre-Operative Diagnosis: IOL chtn si preeclampsia Post-Operative Diagnosis: same Surgery / Procedure Performed: Spontaneous Vaginal Delivery Type of Anesthesia: Epidural Special Medications: none Estimated Blood Loss: 100 Fluids Replaced: crystalloid Findings Description of Procedure: Patient began pushing and delivered the head in the [SILVA] presentation. The head was delivered atraumatically . The anterior and posterior shoulders delivered without complication followed by the rest of the infant and the infant was placed on the maternal abdomen. Delayed cord clamping was employed for approximately 60 seconds. Cord was clamped and cut and gentle traction was applied to the cord and the placenta delivered spontaneously immediately following it was noted to be intact with three-vessel cord. The perineum and vagina were inspected and noted to have a first-degree perineal laceration repaired in the usual fashion with 3-0 Vicryl Rapide. EBL was [100 cc]. Patient and infant tolerated delivery well. Presentation: SILVA Amniotic Membrane Rupture Type: Artificial Amniotic Fluid Description: Clear Placental Delivery Description: Spontaneous Placenta Disposition: [facility] Cord Vessel Description: 3 Vessels Cord Entanglement: None Delayed Cord Clamping: Yes Post Vaginal Delivery Medications Given After Delivery: IV Pitocin Episiotomy Description: None Laceration: Perineal Extension/lac and 1st degree Complication Complications: None Procedures Urinary/Genital [id number]: [id number] Vaginal Delivery [facility]
--- NOTE | 2021-06-09 02:07 | PCM.DC ---
Discharge Instructions Diet Discharge Diet: No restrictions Activity Discharge Activity: Return to Normal Activity, May Not Drive (while taking narcotic pain medications.) and May Shower May resume sexual activity in: 4-6 weeks Dressing / Incision Call your doctor if your incision/area has: Continuous Slow Oozing, Sudden Increased Bleeding, Increased Pain/ Swelling, Increased Redness and Foul Smelling Discharge Follow Up Care Please Follow Up With: Lesley Ferguson MD When: Call [phone] to make an appointment with your doctor in 6 weeks. If you had elevated blood pressure or 4th degree laceration, you will need to be seen in 2 weeks. Test Results: Test results from this visit will be discussed in further detail at your follow-up appointment, if applicable. Discharge Plan Admission Admit Date/Time: 06/07/21 18:53 Primary Reason for Your Visit: vaginal delivery Attending Provider: Lesley Ferguson Discharge Orders/Prescriptions Prescriptions: No Action labetalol 100 mg tablet 100 mg PO BID RF: 0 DHA 200 mg capsule 200 mg PO DAILY RF: 0 famotidine [Pepcid] 20 mg tablet 20 mg PO DAILY PRN (Reason: heartburn) RF: 0 aspirin 81 mg tablet,chewable 81 mg PO DAILY RF: 0 (DME) [employer] Test Strip See Rx Instructions .ROUTE .MEDSUPPLY Qty: 100 RF: 4 (DME) blood-glucose meter [[employer] Blood Glucose System] Kit See Rx Instructions .ROUTE .MEDSUPPLY Qty: 1 RF: 0 Referrals / Follow Up: MYRIAM CISNEROS [Other] Disposition Disposition (needs filled in before D/C Order can be placed): Home, Self Care
[2021-06-09] MEDS: fentaNYL-bupivacaine (epidural) 100 ML BAG EPIDURAL (02:35)
[2021-06-09 02:41] LABS: Bedside Glucose 105 mg/dL (70-110)
[2021-06-09 02:41] LABS: Bedside Glucose 132 mg/dL (70-110)
[2021-06-09 02:41] LABS: Bedside Glucose 115 mg/dL (70-110)
[2021-06-09] MEDS: Silver Nitrate (BKC) 2 EACH TOPICAL (03:20)
[2021-06-09] MEDS: Oxytocin 30 units/NS 500 ml 30 UNITS/500 ML IV.SOLN 334 UNITS IV (03:23)
[2021-06-09] MEDS: Carboprost Tromethamine 250 MCG/ML Ampul IM (03:35)
[2021-06-09 03:51] LABS: Bedside Glucose 116 mg/dL (70-110)
[2021-06-09] MEDS: proCHLORPERazine 10 MG/2 ML Vial IV (04:33)
[2021-06-09] MEDS: 0.9% Saline Lock 10 ML Syringe IV ×2 (04:34→05:00)
[2021-06-09] MEDS: Labetalol (Prefilled) 20 MG/4 ML IV (04:57)
[2021-06-09 05:09] LABS: Hematocrit 31.5 % (37-47); Hemoglobin 10.3 g/dL (12.0-15.0); Mean Corp Hgb Conc 32.7 g/dL (32-36); Mean Corpuscular Hgb 26.9 pg (27.0-32.0); Mean Corpuscular Volume 82.2 fL (81-99); Mean Platelet Vol. 11.1 fl (6.2-12.0); Platelet Count 242 K/mm3 (150-450); RBC Distribution Width SD 41.2 fl (35.1-43.9); Red Blood Count 3.83 M/mm3 (4.2-5.4); White Blood Count 21.3 K/mm3 (4.4-11.0)
[2021-06-09] MEDS: Labetalol 100 MG Tablet PO ×2 (10:28→22:03)
[2021-06-09] MEDS: Prenatal Vits Tablet 1 TABLET PO (10:29)
[2021-06-09] MEDS: Magnesium Sulfate 4gm/100mL 4 GM/100 ML IV.SOLN. IV (11:56)
[2021-06-09 12:16] LABS: ALB/GLOB Ratio 0.5 RATIO (0.9-2.4); AST(SGOT) 23 U/L (15-37); Alanine Aminotransfer ALT/SGPT 18 U/L (13-56); Albumin, Serum 1.9 g/dL (3.2-5.0); Alkaline Phosphatase 145 U/L (45-117); Anion Gap 8 (5-15); BUN 5 mg/dL (7-18); BUN/Creat Ratio 8.7 RATIO (10-20); Calcium,Total 7.2 mg/dL (8.5-10.1); Chloride 105 mmol/L (98-107); Creatinine, Serum 0.57 mg/dL (0.55-1.02); EST Glomerular Filtration Rate 132 mL/min (>60); Est Glom Filt Rate - Afr Amer 160 mL/min (>60); Estimated Creatinine Clearance 125.75 ml/min; Globulin 3.6 g/dL (2.2-4.2); Glucose 131 mg/dL (74-106); Magnesium 5.6 mg/dL (1.6-2.6); Protein, Total 5.5 g/dL (6.4-8.2); Sodium Level 138 mmol/L (136-145)
--- NOTE | 2021-06-09 12:46 | PCM.PN.OB ---
Subjective Subjective Blood pressures within normal limits, patient feels out of it but no different than she did when she was on magnesium previously. Nursing noted increase in hyperreflexia and clonus therefore mag level was drawn and was noted to be low therapeutic 4 g bolus was given and we are continuing 2 g an hour. Objective Data Objective Data Vital Signs: Vital Signs Temp Pulse Resp BP Pulse Ox 98.0 F 74 14 125/67 H 98 06/09/21 12:07 06/09/21 12:31 06/09/21 12:31 06/09/21 12:31 06/09/21 12:31 Oxygen Delivery Method Room Air Weight: 178 lb 12.718 oz Body Mass Index (BMI) 30.7 Intake & Output: Intake and Output for Last 24 Hours 06/07/21 06/08/21 06/09/21 23:59 23:59 23:59 Intake Total 308.90 / 308.90 3041.65 / 3041.65 2353.25 / 2353.25 Output Total 3505 / 3505 2325 / 2325 Balance 308.90 / 308.90 -463.35 / -463.35 28.25 / 28.25 Lab / Micro Data Result Diagrams: 06/09/21 05:00 06/09/21 11:42 Labs: Laboratory Results - last 24 hr 06/08/21 14:05: POC Glucose 98 06/08/21 17:16: POC Glucose 124 H 06/08/21 18:20: POC Glucose 101 06/08/21 19:28: POC Glucose 111 H 06/08/21 20:24: POC Glucose 95 06/08/21 21:31: POC Glucose 107 06/08/21 22:29: POC Glucose 95 06/08/21 23:41: POC Glucose 90 06/09/21 00:29: POC Glucose 105 06/09/21 01:37: POC Glucose 115 H 06/09/21 02:38: POC Glucose 132 H 06/09/21 03:35: POC Glucose 116 H 06/09/21 05:00: WBC 21.3 H, RBC 3.83 L, Hgb 10.3 L, Hct 31.5 L, MCV 82.2, MCH 26.9 L, MCHC 32.7, RDW Std Deviation 41.2, RDW Coeff of Erasmo 14.0, Plt Count 242, MPV 11.1 06/09/21 11:42: Sodium 138, Potassium 4.0, Chloride 105, Carbon Dioxide 25.0, Anion Gap 8, BUN 5 L, Creatinine 0.57, Estim Creat Clear Calc 125.75, Est GFR (MDRD) Af Amer 160, Est GFR (MDRD) Non-Af 132, BUN/Creatinine Ratio 8.7 L, Glucose 131 H, Calcium 7.2 L, Magnesium 5.6 H*, Total Bilirubin 0.80, AST 23, ALT 18, Alkaline Phosphatase 145 H, Total Protein 5.5 L, Albumin 1.9 L, Globulin 3.6, Albumin/Globulin Ratio 0.5 L Micro: Microbiology 06/07/21 19:38 Nasal Secretion SARS-CoV-2 Antigen (Rapid) - Final Physical Exam Const alert and oriented x3 HEENT normocephalic Head and Scalp: normal to inspection and normocephalic Neuro Neuro Narrative: 2 clonus right 3 left 3-4+ reflexes Assessment & Plan (1) Vaginal delivery: COMMENT: boy Sow IOL chtn with SI preeclampsia 37 SM (2) Pre-eclampsia superimposed on chronic hypertension: COMMENT: IOL pit fb, started on magnesium sulfate and procardia (3) Chronic hypertension: COMMENT: controlled with labetolol; baseline labs with NOB. Growth at 32w & 34w nl. NSTs weekly at 32w. Delivery at 38w. (4) Gestational diabetes: QUALIFIERS: Gestational diabetes mellitus control: diet-controlled Trimester: third trimester Qualified Code(s): O24.410 - Gestational diabetes mellitus in , diet controlled COMMENT: nutrition and Endo referrals sent. diet controlled
[2021-06-10] VITALS (7 sets, daily range): BP systolic 112–144; BP diastolic 53–79; PULSE 60–79; RESP 15–18; TEMP 36.5–37.1; O2SAT 96–98
[2021-06-10 07:26] LABS: Bedside Glucose 90 mg/dL (70-110)
--- NOTE | 2021-06-10 09:23 | PCM.PN.OB ---
Subjective Subjective Patient doing well without complaints. Tolerating PO. Ambulating and voiding without difficulty. feeding well. Denies chest pain, shortness of breath, calf pain/swelling, fevers, chills, lightheadedness. Objective Data Objective Data Vital Signs: Vital Signs Temp Pulse Resp BP Pulse Ox 98.5 F 64 18 140/70 H 98 06/10/21 08:22 06/10/21 08:22 06/10/21 08:22 06/10/21 08:22 06/10/21 08:22 Oxygen Delivery Method Room Air Weight: 178 lb 12.718 oz Body Mass Index (BMI) 30.7 Intake & Output: Intake and Output for Last 24 Hours 06/08/21 06/09/21 06/10/21 23:59 23:59 23:59 Intake Total 3041.65 / 3041.65 3172.42 / 3172.42 526.67 / 526.67 Output Total 3505 / 3505 4375 / 4375 300 / 300 Balance -463.35 / -463.35 -1202.58 / -1202.58 226.67 / 226.67 Lab / Micro Data Result Diagrams: 06/09/21 05:00 06/09/21 11:42 Labs: Laboratory Results - last 24 hr 06/09/21 11:42: Sodium 138, Potassium 4.0, Chloride 105, Carbon Dioxide 25.0, Anion Gap 8, BUN 5 L, Creatinine 0.57, Estim Creat Clear Calc 125.75, Est GFR (MDRD) Af Amer 160, Est GFR (MDRD) Non-Af 132, BUN/Creatinine Ratio 8.7 L, Glucose 131 H, Calcium 7.2 L, Magnesium 5.6 H*, Total Bilirubin 0.80, AST 23, ALT 18, Alkaline Phosphatase 145 H, Total Protein 5.5 L, Albumin 1.9 L, Globulin 3.6, Albumin/Globulin Ratio 0.5 L 06/10/21 07:23: POC Glucose 90 Micro: Microbiology 06/07/21 19:38 Nasal Secretion SARS-CoV-2 Antigen (Rapid) - Final ROS Constitutional Constitutional: Reports systems reviewed and no addt'l complaints, except as documented Cardiovascular Cardiovascular: Reports systems reviewed and no addt'l complaints, except as documented Respiratory/Chest Respiratory/Chest: Reports systems reviewed and no addt'l complaints, except as documented Gastrointestinal Gastrointestinal: Reports systems reviewed and no addt'l complaints, except as documented Physical Exam Const alert, oriented x3 and no apparent distress HEENT Head and Scalp: atraumatic Resp normal respiratory effort GI soft to palpation and non-tender Bimanual Exam - Vag & Uterus: uterus non-tender Uterus Palpation: uterus fundus firm (below Umbilicus) Assessment & Plan (1) Vaginal delivery: COMMENT: boy Sow IOL chtn with SI preeclampsia 37 SM (2) Pre-eclampsia superimposed on chronic hypertension: COMMENT: IOL pit fb, started on magnesium sulfate and procardia (3) Chronic hypertension: COMMENT: controlled with labetolol; baseline labs with NOB. Growth at 32w & 34w nl. NSTs weekly at 32w. Delivery at 38w. (4) Gestational diabetes: QUALIFIERS: Gestational diabetes mellitus control: diet-controlled Trimester: third trimester Qualified Code(s): O24.410 - Gestational diabetes mellitus in , diet controlled COMMENT: nutrition and Endo referrals sent. diet controlled PLAN: s/p PPD # 1 1. routine post delivery care 2. breast feeding- support given 3. rh positive 4. rubella immune
[2021-06-10] MEDS: Labetalol 100 MG Tablet PO ×2 (10:44→21:30)
[2021-06-10] MEDS: Prenatal Vits Tablet 1 TABLET PO (10:44)
[2021-06-11 01:58] VITALS: BP 145/65; PULSE 61; RESP 16; TEMP 37.1
--- NOTE | 2021-06-11 03:54 | PCM.PN.OB ---
Subjective Subjective Patient doing well without complaints. Tolerating PO. Ambulating and voiding without difficulty. feeding well. Denies chest pain, shortness of breath, calf pain/swelling, fevers, chills, lightheadedness. Objective Data Objective Data Vital Signs: Vital Signs Temp Pulse Resp BP Pulse Ox 98.8 F 61 16 145/65 H 97 06/11/21 01:58 06/11/21 01:58 06/11/21 01:58 06/11/21 01:58 06/10/21 17:13 Oxygen Delivery Method Room Air Weight: 178 lb 12.718 oz Body Mass Index (BMI) 30.7 Intake & Output: Intake and Output for Last 24 Hours 06/09/21 06/10/21 06/11/21 23:59 23:59 23:59 Intake Total 3172.42 / 3172.42 526.67 / 526.67 Output Total 4375 / 4375 300 / 300 Balance -1202.58 / -1202.58 226.67 / 226.67 Lab / Micro Data Result Diagrams: 06/09/21 05:00 06/09/21 11:42 Labs: Laboratory Results - last 24 hr 06/10/21 07:23: POC Glucose 90 Micro: Microbiology 06/07/21 19:38 Nasal Secretion SARS-CoV-2 Antigen (Rapid) - Final ROS Constitutional Constitutional: Reports systems reviewed and no addt'l complaints, except as documented Cardiovascular Cardiovascular: Reports systems reviewed and no addt'l complaints, except as documented Respiratory/Chest Respiratory/Chest: Reports systems reviewed and no addt'l complaints, except as documented Gastrointestinal Gastrointestinal: Reports systems reviewed and no addt'l complaints, except as documented Physical Exam Const alert, oriented x3 and no apparent distress HEENT Head and Scalp: atraumatic Resp normal respiratory effort GI soft to palpation and non-tender Bimanual Exam - Vag & Uterus: uterus non-tender Uterus Palpation: uterus fundus firm (below Umbilicus) Assessment & Plan (1) Vaginal delivery: COMMENT: boy Sow IOL chtn with SI preeclampsia 37 SM (2) Pre-eclampsia superimposed on chronic hypertension: COMMENT: labetalol increased to 200 BID. s/p IOL pit fb, s/p magnesium sulfate and procardia (3) Chronic hypertension: COMMENT: controlled with labetolol; baseline labs with NOB. Growth at 32w & 34w nl. NSTs weekly at 32w. Delivery at 38w. PLAN: s/p PPD # 2 1. routine post delivery care 2. breast feeding- support given 3. rh positive 4. rubella immune preeclampsia- labetalol increased
[2021-06-11 08:17] VITALS: BP 134/66; PULSE 63; RESP 16; TEMP 37.2; O2SAT 98
[2021-06-11] MEDS: Prenatal Vits Tablet 1 TABLET PO (10:02)
[2021-06-11] MEDS: Labetalol 200 MG Tablet PO ×2 (10:02→22:18)
[2021-06-11 13:48] VITALS: BP 139/70; PULSE 57; RESP 16; TEMP 36.7; O2SAT 99
[2021-06-11 18:05] VITALS: BP 134/67; PULSE 64
[2021-06-11 20:02] VITALS: BP 138/69; PULSE 62; RESP 16; TEMP 36.8
--- NOTE | 2021-06-15 17:14 | NURSING ---
no answer on follow up phone call. left voicemail
== END 2021-06-11 22:25 | disposition home or self-care (01) | DRG 807 ==
PROVIDERS: Admitting Provider Obstetrics & Gynecology; Visit Provider Obstetrics & Gynecology
DX: O11.4 Pre-existing hypertension with pre-eclampsia, complicating childbirth (principal); Z37.0 Single live birth; O24.420 Gestational diabetes mellitus in childbirth, diet controlled; O10.913 Unspecified pre-existing hypertension complicating pregnancy, third trimester; O62.1 Secondary uterine inertia; O70.0 First degree perineal laceration during delivery; Z3A.37 37 weeks gestation of pregnancy; Z79.82 Long term (current) use of aspirin
CPT/HCPCS: 59025; 59050; 80053; 82962; 83735; 85025; 85027; 86850; 86900; 86901; 87426; 99218; J7120; A4216; G0378; J2405

== ENCOUNTER 2021-07-20 16:39 | Outpatient (CLI) | payer OTHER, SELFPAY ==
[2021-07-25 17:00] LABS: HPV Reflexed? NOT INDICATED
== END 2021-07-20 23:59 | disposition home or self-care (01) ==
LOC: LABSPEC 16:40
PROVIDERS: Visit Provider Obstetrics & Gynecology
DX: Z12.4 Encounter for screening for malignant neoplasm of cervix (principal)
CPT/HCPCS: 88175; G0145

== ENCOUNTER → 2023-06-14 | Outpatient (CLI) | payer OTHER, SELFPAY ==
--- OUTSIDE RECORDS SUMMARY | 2023-06-14 07:23 | XMS RPT_ITS | CCD ---
Author Name Unknown Address [address] [place] [address] Organization [facility] Care Team Providers Care Lead Business Analyst Name Role Phone Darrell Vick Unavailable Unavailable Darrell Vick Unavailable Unavailable Amelia CERVANTES, Myriam A Primary Care Provider Amelia CERVANTES, Myriam A Primary Care Provider Amelia CERVANTES, Myriam A Primary Care Provider Amelia CERVANTES, Myriam A Primary Care Provider AMELIA MYRIAM A Primary Care Unavailabl e AMELIA, MYRIAM A Primary Care Unavailabl e AMELIA, MYRIAM A Referring Unavailabl e AMELIA, MYRIAM A Primary Care Unavailabl e PROVIDER, UNKNOWN Referring Unavailable AMELIA, MYRIAM A Primary Care Unavailabl e PROVIDER, UNKNOWN Referring Unavailable AMELIA, MYRIAM A Primary Care Unavailabl e PROVIDER, UNKNOWN Referring Unavailable AMELIA, MYRIAM A Primary Care Unavailabl e AMELIA, MYRIAM A Primary Care Unavailabl e AMELIA, MYRIAM A Attending Unavailabl e AMELIA, MYRIAM A Primary Care Unavailabl e AMELIA, MYRIAM A Attending Unavailabl e AMELIA, MYRIAM A Primary Care Unavailabl e LISANDRA CID Attending Unava ilable AMELIA, MYRIAM A Primary Care Unavailabl e VEERAMACHANENI, PEDRO Attending Unavailab LISANDRA Swan Referring Unava ilable AMELIA, MYRIAM A Primary Care Unavailabl e VEERAMACIZAIAH, SUSANALI Referring Unavailab le AMELIA, MYRIAM A Primary Care Unavailabl e LISANDRA CID Attending MYRIAM Amanda Primary Care [facility] e Allergies Allergy Classification Reported Allergen(s) Allergy Type Date of Onset Reaction(s) Facility (20 sources) Seasonal allergy; Translations: [SEASONAL ALLERGIES] Allergy to substance Other: See Comments [facility] Medications Completed/Discontinued Medications Medication Drug Class(es) Dates Sig (Normalized) Sig (Original) azelastine hydrochloride 0.137 mg/actuat metered dose nasal spray (15 sources) Histamine-1 Receptor Antagonist Start: 10-21-2018 End: 06-15-2022 take 2 spray(s) nasal route twice daily azelastine (ASTELIN) 0.1% nasal spray Indications: Allergic rhinitis Use 2 Sprays in each nostril twice daily. Use as directed. 1 Bottle 1 10/21/2018 06/15/2022 Discontinued Problems Active Problems Problem Classification Problem Date Documented Date Episodic/Chronic Anxiety disorders (20 sources) Anxiety; Translations: [Anxiety disorder, unspecified] Onset: 03-20-2022 Chronic Esophageal disorders (2 sources) Gastroesophageal reflux disease without esophagitis; Translations: [Gastro-esophageal reflux disease without esophagitis] Chronic Essential hypertension (20 sources) Essential hypertension; Translations: [Essential (primary) hypertension] Onset: 03-31-2019 03-31-2019 Chronic Immunizations and screening for infectious disease (7 sources) Viral screening status; Translations: [Encounter for screening for other viral diseases] Episodic Menstrual disorders (20 sources) Break-through bleeding; Translations: [Excessive and frequent menstruation with irregular cycle] Onset: 11-15-2017 11-15-2017 Chronic Other aftercare (1 source) Patient encounter status; Translations: [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] 04-01-2023 Episodic Other liver diseases (1 source) High lipase level in serum; Translations: [Abnormal levels of other serum enzymes] Episodic Other liver diseases (3 sources) Abnormal levels of other serum enzymes; Translations: [Acid phosphatase elevated] Onset: 05-21-2022 Episodic Other nutritional; endocrine; and metabolic disorders (1 source) Increased body mass index; Translations: [Other symptoms and signs concerning food and fluid intake] Episodic Other upper respiratory infections (1 source) Acute upper respiratory infection; Translations: [Acute upper respiratory infection, unspecified] Episodic Residual codes; unclassified (20 sources) Obstructive sleep apnea syndrome; Translations: [Obstructive sleep apnea (adult) (pediatric)] Onset: 02-01-2021 02-01-2021 Chronic Unclassified (1 source) Unknown / UNK(Unknown) Onset: 05-28-2017 Past or Other Problems Problem Classification Problem Date Documented Da te Episodic/Chronic Abdominal pain (1 source) Epigastric pain; Translations: [Abdominal pain, epigastric] Onset: 03-06-2022 Episodic Blindness and vision defects (20 sources) Myopia; Translations: [Myopia, unspecified eye] Onset: 08-09-2016 08-09-2016 Episodic Diabetes or abnormal glucose tolerance complicating ; childbirth; or the puerperium (20 sources) History of gestational diabetes mellitus; Translations: [Personal history of gestational diabetes] Onset: 01-18-2022 Episodic Other nutritional; endocrine; and metabolic disorders (1 source) Other symptoms and signs concerning food and fluid intake; Translations: [Increased body mass index] Onset: 06-15-2022 Episodic Unclassified (1 source) SCR Onset: 05-28-2017 Results Test Name Value Interpretation Reference Range Facil ity Vital Signs Date Time Vital Sign Value Performing Clinician Magaly rizzo 04-01-2023 12:58-0400 Diastolic blood pressure 72 mm[Hg] Myriam Camargo MD Work Phone: [facility] 04-01-2023 12:58-0400 Heart rate 52 /min Myriam Daniels Work Phone: [facility] 04-01-2023 12:58-0400 Systolic blood pressure 123 mm[Hg] Myriam Camargo MD Work Phone: [facility] 04-01-2023 12:55-0400 Body height 164.2 cm Myriam Daniels Work Phone: [facility] 04-01-2023 12:55-0400 Body temperature 98.01 [degF] Myriam Daniels Work Phone: [facility] 04-01-2023 12:55-0400 Body weight 79.65 kg Myriam Daniels Work Phone: [facility] 04-01-2023 12:55-0400 Respiratory rate 16 /min Myriam Daniels Work Phone: [facility] 04-01-2023 12:55-0400 SaO2% (BldA) [Mass fraction] 100 % Myriam Camargo MD Work Phone: [facility] 11-08-2022 15:39-0400 Diastolic blood pressure 78 mm[Hg] Myriam Camargo MD Work Phone: [facility] 11-08-2022 15:39-0400 Heart rate 63 /min Myriam Daniels Work Phone: [facility] 11-08-2022 15:39-0400 Systolic blood pressure 119 mm[Hg] Myriam Camargo MD Work Phone: [facility] 11-08-2022 15:35-0400 Body height 162.6 cm Myriam Daniels Work Phone: [facility] 11-08-2022 15:35-0400 Body temperature 98.49 [degF] Myriam Daniels Work Phone: [facility] 11-08-2022 15:35-0400 Body weight 77.11 kg Myriam Daniels Work Phone: [facility] 11-08-2022 15:35-0400 Respiratory rate 16 /min Myriam Daniels Work Phone: [facility] 11-08-2022 15:35-0400 SaO2% (BldA) [Mass fraction] 99 % Myriam Camargo MD Work Phone: [facility] 07-03-2022 18:44-0500 Diastolic blood pressure 66 mm[Hg] Lisandra Gunter APRN.CNP Work Phone: [facility] 07-03-2022 18:44-0500 Systolic blood pressure 142 mm[Hg] Lisandra Gunter FILM COATER.DIRECTOR HOME HEALTH Work Phone: [facility] 07-03-2022 18:40-0500 Body temperature 96.91 [degF] Lisandra Gunter FILM COATER.DIRECTOR HOME HEALTH Work Phone: [facility] 07-03-2022 18:40-0500 Body weight 75.84 kg Lisandra Reeseethan Gunter FILM COATER.DIRECTOR HOME HEALTH Work Phone: [facility] 07-03-2022 18:40-0500 Heart rate 65 /min Lisandra Gunter FILM COATER.DIRECTOR HOME HEALTH Work Phone: [facility] 07-03-2022 18:40-0500 Respiratory rate 16 /min Lisandra Gunter FILM COATER.DIRECTOR HOME HEALTH Work Phone: [facility] 07-03-2022 18:40-0500 SaO2% (BldA) [Mass fraction] 100 % Lisandra Reeseethan Gunter FILM COATER.DIRECTOR HOME HEALTH Work Phone: [facility] 06-15-2022 15:21-0500 Body height 162.6 cm Pedro Wheeler i, MD Work Phone: [facility] 06-15-2022 15:21-0500 Body weight 73.48 kg Pedro Wheeler i, MD Work Phone: [facility] 06-15-2022 15:21-0500 Diastolic blood pressure 80 mm[Hg] Pedro Carrera MD Work Phone: [facility] 06-15-2022 15:21-0500 Heart rate 88 /min Pedro Wheeler i, MD Work Phone: [facility] 06-15-2022 15:21-0500 SaO2% (BldA) [Mass fraction] 98 % Pedro Carrera MD Work Phone: [facility] 06-15-2022 15:21-0500 Systolic blood pressure 138 mm[Hg] Pedro Carrera MD Work Phone: [facility] 05-10-2022 08:19-0500 Diastolic blood pressure 70 mm[Hg] Lisandra Gunter FILM COATER.DIRECTOR HOME HEALTH Work Phone: [facility] 05-10-2022 08:19-0500 Systolic blood pressure 122 mm[Hg] Lisandra Gunter FILM COATER.DIRECTOR HOME HEALTH Work Phone: [facility] 05-10-2022 08:05-0500 Body temperature 98.71 [degF] Lisandra Gunter FILM COATER.DIRECTOR HOME HEALTH Work Phone: [facility] 05-10-2022 08:05-0500 Body weight 72.39 kg Lisandra Gunter FILM COATER.DIRECTOR HOME HEALTH Work Phone: [facility] 05-10-2022 08:05-0500 Heart rate 79 /min Lisandra Gunter FILM COATER.DIRECTOR HOME HEALTH Work Phone: [facility] 05-10-2022 08:05-0500 Respiratory rate 16 /min Lisandra Gunter FILM COATER.DIRECTOR HOME HEALTH Work Phone: [facility] 05-10-2022 08:05-0500 SaO2% (BldA) [Mass fraction] 100 % Lisandra Gunter APRN.DIRECTOR HOME HEALTH Work Phone: [facility] 03-20-2022 08:18-0400 Diastolic blood pressure 78 mm[Hg] Lisandra Gunter FILM COATER.DIRECTOR HOME HEALTH Work Phone: [facility] 03-20-2022 08:18-0400 Systolic blood pressure 130 mm[Hg] Lisandra Gunter FILM COATER.DIRECTOR HOME HEALTH Work Phone: [facility] 03-20-2022 08:07-0400 Body temperature 98.71 [degF] Lisandra Gunter FILM COATER.DIRECTOR HOME HEALTH Work Phone: [facility] 03-20-2022 08:07-0400 Body weight 70.76 kg Lisandra Gunter APRN.DIRECTOR HOME HEALTH Work Phone: [facility] 03-20-2022 08:07-0400 Heart rate 64 /min Lisandra Reeseethan Gunter FILM COATER.DIRECTOR HOME HEALTH Work Phone: [facility] 03-20-2022 08:07-0400 Respiratory rate 16 /min Lisandra Reeseethan Gunter FILM COATER.DIRECTOR HOME HEALTH Work Phone: [facility] 03-20-2022 08:07-0400 SaO2% (BldA) [Mass fraction] 100 % Lisandra Reeseethan Gunter FILM COATER.DIRECTOR HOME HEALTH Work Phone: [facility] 01-18-2022 14:00-0400 Body height 162.6 cm Myriam Daniels Work Phone: [facility] 01-18-2022 14:00-0400 Body temperature 98.01 [degF] Myriam Daniels Work Phone: [facility] 01-18-2022 14:00-0400 Body weight 70.94 kg Myriam Daniels Work Phone: [facility] 01-18-2022 14:00-0400 Diastolic blood pressure 74 mm[Hg] Myriam Camargo MD Work Phone: [facility] 01-18-2022 14:00-0400 Heart rate 55 /min Myriam Daniels Work Phone: [facility] 01-18-2022 14:00-0400 Respiratory rate 16 /min Myriam Daniels Work Phone: [facility] 01-18-2022 14:00-0400 SaO2% (BldA) [Mass fraction] 100 % Myriam Camargo MD Work Phone: [facility] 01-18-2022 14:00-0400 Systolic blood pressure 132 mm[Hg] Myriam Camargo MD Work Phone: [facility] Encounters Encounter Date Encounter Type Care Provider Facility Start: 04-18-2023 Telephone encounter Myriam Camargo MD Work Phone: [facility] Procedures Date Procedure Procedure Detail Performing Clinician Start: 04-01-2023 INFLUENZA VACCINE, A GE 6 MO - 64 YR, QUADRIVALENT (AFLURIA, FLULAVAL, FLUZONE) Myriam Camargo MD Work Phone: Start: 05-21-2022 Us abdominal real ti me w/image limited Juan Antonio Tariq MD Work Phone: Start: 03-20-2022 INFLUENZA VACCINE QUADRIVALENT 6 MO - 64 YRS IM Lisandra Gunter APRN.DIRECTOR HOME HEALTH Work Phone: Start: 01-15-2022 Adult depression scr eening assessment Myriam Camargo MD Work Phone: Start: 10-11-2020 Adult depression scr eening assessment Myriam Camargo MD Work Phone: Plan of Treatment Date Care Activity Detail Author Start: 04-19-2031 Urine microalbumin profile [facility] Start: 07-26-2026 PAP TESTING PAP TESTING [facility] Start: 07-26-2024 PAP TESTING PAP TESTING [facility] Start: 04-01-2024 Annual PCP Team Hydrodynamicist laya Disease Visit Annual PCP Team Chronic Disease Visit [facility] Start: 04-01-2024 BP Controlled (<130/80) BP Controlle d (<130/80) [facility] Start: 04-01-2024 Covid-19 Vaccine ( season) Covid-19 Vaccine ( season) [facility] Immunizations Immunization Date Immunization Notes Care Provider Fa cility 04-01-2023 influenza, injectabl e, quadrivalent, contains preservative Myriam Camargo MD Work Phone: [facility] 03-20-2022 influenza, injectabl e, quadrivalent, contains preservative Lisandra Gunter APRN.DIRECTOR HOME HEALTH Work Phone: [facility] 03-20-2022 influenza virus vacc ine, unspecified formulation Lisandra Gunter APRN.DIRECTOR HOME HEALTH Work Phone: [facility] 04-19-2021 diphtheria, tetanus toxoids and acellular pertussis vaccine, unspecified formulation Myriam Camargo MD Work Phone: [facility] Work Phone: 03-31-2019 influenza, injectabl e, quadrivalent, contains preservative Myriam Camagro MD Work Phone: [facility] 03-06-2018 influenza, injectabl e, quadrivalent, contains preservative Myriam Camargo MD Work Phone: [facility] 04-12-2017 influenza, injectabl e, quadrivalent, contains preservative Myriam Camargo MD Work Phone: [facility] 04-25-2016 influenza, injectabl e, quadrivalent, contains preservative Myriam Camargo MD Work Phone: [facility] 10-21-2013 hepatitis A vaccine, adult dosage Myriam Camargo MD Work Phone: [facility] 11-16-2010 hepatitis A vaccine, pediatric/adolescent dosage, 2 dose schedule Myriam Camargo MD Work Phone: [facility] 11-16-2010 hepatitis A vaccine, unspecified formulation Myriam Camargo MD Work Phone: [facility] 11-16-2010 meningococcal polysaccharide (groups A, C, Y and W-135) diphtheria toxoid conjugate vaccine (MCV4P) Myriam Camargo MD Work Phone: [facility] 11-16-2010 meningococcal polysaccharide vaccine (MPSV4) Myriam Camargo MD Work Phone: [facility] 11-16-2010 tetanus toxoid, redu gema diphtheria toxoid, and acellular pertussis vaccine, adsorbed Myriam Camargo MD Work Phone: [facility] 05-17-2009 novel influenza-H1N1 -09, preservative-free, injectable Myriam Camargo MD Work Phone: [facility] 09-29-1997 diphtheria, tetanus toxoids and acellular pertussis vaccine, unspecified formulation Myriam Camargo MD Work Phone: [facility] 09-29-1997 measles, mumps and rubella virus vaccine Myriam Camargo MD Work Phone: [facility] 09-29-1997 poliovirus vaccine, unspecified formulation Myriam Camargo MD Work Phone: [facility] 06-14-1997 hepatitis B vaccine, pediatric or pediatric/adolescent dosage Myriam Camargo MD Work Phone: [facility] 12-07-1996 hepatitis B vaccine, adult dosage Myriam Camargo MD Work Phone: [facility] 12-07-1996 hepatitis B vaccine, pediatric or pediatric/adolescent dosage Myriam Camargo MD Work Phone: [facility] 10-30-1996 hepatitis B vaccine, adult dosage Myriam Camargo MD Work Phone: [facility] 10-30-1996 hepatitis B vaccine, pediatric or pediatric/adolescent dosage Myriam Camargo MD Work Phone: [facility] 08-24-1993 diphtheria, tetanus toxoids and acellular pertussis vaccine, unspecified formulation Myriam Camargo MD Work Phone: [facility] 08-24-1993 haemophilus influenz ae type b vaccine, PRP-T conjugate Myriam Camargo MD Work Phone: [facility] 08-24-1993 measles, mumps and rubella virus vaccine Myriam Camargo MD Work Phone: [facility] 08-24-1993 trivalent poliovirus vaccine, live, oral Myriam Camargo MD Work Phone: [facility] 1992 diphtheria, tetanus toxoids and pertussis vaccine Myriam Camargo MD Work Phone: [facility] 1992 haemophilus influenz ae type b vaccine, PRP-T conjugate Myriam Camargo MD Work Phone: [facility] 1992 diphtheria, tetanus toxoids and pertussis vaccine Myriam Camargo MD Work Phone: [facility] 1992 haemophilus influenz ae type b vaccine, PRP-T conjugate Myriam Camargo MD Work Phone: [facility] 1992 trivalent poliovirus vaccine, live, oral Myriam Camargo MD Work Phone: [facility] 1992 diphtheria, tetanus toxoids and pertussis vaccine Myriam Camargo MD Work Phone: [facility] 1992 haemophilus influenz ae type b vaccine, PRP-T conjugate Myriam Camargo MD Work Phone: [facility] 1992 trivalent poliovirus vaccine, live, oral Myriam Camargo MD Work Phone: [facility] Payers Date Payer Category Payer Private Health Insurance LITZYCULLEN BOYCEHina RODRIGEZ [id number] 2020-Present [phone] [facility] [id number] [place] [address] Open Access [id number] 2020 Private Health Insurance [id number] 2020 Private Health Insurance [id number] Social History Date Type Detail Facility Start: 06-18-2013 End: 03-20-2022 Tobacco smoking status NHIS Never smoked tobacco [facility] Start: 06-18-2013 End: 03-20-2022 Tobacco use and exposure Smokeless tobacco non-user [facility] Start: 06-27-2021 End: 04-01-2023 Alcohol intake Current drinker of alcohol (finding) [facility] Start: 10-11-2020 End: 05-09-2022 History SDOH Alcohol Frequency 4 [facility] Start: 10-11-2020 End: 05-09-2022 History SDOH Alcohol Std Drinks 1 [facility] Start: 06-18-2013 History SDOH Alcohol Comment rarely [facility] Start: 10-11-2020 End: 05-09-2022 History SDOH Social Connections Phone 5 [facility] Start: 10-11-2020 End: 05-09-2022 History SDOH Social Connections Cheondoism 2 [facility] Start: 10-11-2020 End: 10-11-2021 History SDOH Social Connections Meetings 98 [facility] Start: 10-11-2020 End: 05-09-2022 History SDOH Social Connections Living 3 [facility] Start: 08-13-2019 Education 17 [facility] Start: 1990 Sex Assigned At Not on file C [facility] Start: 10-01-2021 End: 05-10-2022 Exposure to SARS-CoV-2 (event) Not sure [facility] Start: 05-15-2020 End: 05-08-2022 [facility] Start: 05-15-2020 End: 05-08-2022 Social connection and isolation panel [facility] Do you belong to any clubs or organizations such as muslim groups, unions, fraternal or athletic groups, or school groups? No [facility] Are you now , , , , never or living with a partner? [facility] How often to you hav e a drink containing alcohol? 2-3 time sa week [facility] How many standard dr inks containing alcohol do you have on a typical day? 1 or 2 [facility] How often do you hav e 6 or more drinks on 1 occasion? Never [facility] How hard is it for y ou to pay for the very basics like food, housing, medical care, and heating Not hard at all [facility] Do you feel stress - tense, restless, nervous, or anxious, or unable to sleep at night because your mind is troubled all the time - these days [OSQ] Not at all [facility] (I/We) worried wheth er (my/our) food would run out before (I/we) got money to buy more. Never true [facility] Clinical Notes 11-15-2017 to 04-18-2023 Telephone Encounter - Mile Noel - 04/18/2023 11:57 AM Myriam Phipps MD - 04/01/2023 1:13 PM Cielo Gann MA - 04/01/2023 12:57 PM EDTPatient InstructionsPatient Instructions Note Date & Type Note Facility 04-18-2023 Miscellaneous Notes Type of form: physical Form received via walk in When form is completed, call patient Form has been forwarded to Physician Mailbox: Dr. Amelia Noel documented in this encounter [facility] 04-01-2023 Note HNO ID: [id number] Author: Myriam Camargo MD Service: ? Author Type: Physician Type: Progress Notes Filed: 04/01/2023 1:40 PM Note Text: Batsheva Crooks is a 32 year old female who presents today with concern or complaint of Patient presents with: Yearly Exam Last 3 Encounter BP Readings: Date: BP: 04/01/2023 123/72[2nd reading arm elevated[ 11/08/2022 119/78 08/09/2022 137/77 BPs has been well controlled on labetalol avg 120s/70s at home son born 06/09/21 - Sow on low dose zoloft interested in stopping it needed it and past that has been on it for about a year now Also having heartburn - burning in stomach taking pepcid bid and still w/ some breakthrough sx not having acid come up into throat hasn't tried PPI got cpap when 8 months had it for a couple of months wasn't wearing it enough w/ a new baby now not feeling the symptoms she was feeling w/ the apnea it was mild PAST MEDICAL HISTORY Diagnosis Date Elevated blood pressure Irregular menses PAST SURGICAL HISTORY Procedure Laterality Date DENTAL SURGERY HX wisdom teeth MYRINGOTOMY ASPIRAND/EUSTACHIAN TUBE NFLTJ ANES Myringotomy/tubes MEDICATIONS: Current Outpatient Medications Medication Sig labetalol (TRANDATE) 200 mg tablet Take 1 tablet by mouth twice daily. ergocalciferol, vitamin D2, (VITAMIN D2 ORAL) fluticasone (FLONASE) 50 mcg/actuation nasal spray Use 1 [place] in each nostril daily at bedtime. Use as directed. (Patient taking differently: Use 1 [place] in each nostril daily at bedtime. Use as directed. PRN) No current facility-administered medications for this visit. 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[employer] EXERCISE: has to get back to walking more consistently again, hoping to rejoin gym -[employer] CHOLESTEROL: Cholesterol, Total (mg/dL) Date Value 03/28/2019 166 06/18/2013 188 HDL Cholesterol (mg/dL) Date Value 03/28/2019 37 06/18/2013 58 LDL Cholesterol (mg/dL) Date Value 03/28/2019 102 06/18/2013 103 Triglyceride (mg/dL) Date Value 03/28/2019 136 06/18/2013 133 COLON CA SCREENING: n/i, denies sx IMMUNIZATIONS: utd BMD: n/i FAMILY HISTORY: FAMILY HISTORY Problem Relation Age of Onset None Mother Hypertension Father other (Parkinsons) Maternal Grandfather Ischemic Heart Disease Paternal Grandmother Ischemic Heart Disease Paternal Grandfather Hypertension Brother Asthma Sister SOCIAL HISTORY: Social History Social History Narrative 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 No fevers, tired but that's not new, no night sweats. No changes in hearing, vision or voice. No problems with teeth, swallowing or thyroid. No chest pain or palpitations. No cough or SOB. No wheezing. No LE edema. No abdominal pain, nausea or vomiting. No constipation or diarrhea. No urinary incontinence, dysuria, or vaginal discharge. No changes in skin, moles or rashes. No stiff, painful or swollen joints. No back pain or discomfort. PHYSICAL EXAMINATION: BP 123/72 Pulse (!) 52 Temp 36.7 ?C (98 ?F) (Temporal Artery) Resp 16 Ht 164.2 cm (5' 4.65 ) Wt 79.7 kg (175 lb 9.6 oz) LMP 03/11/2023 SpO2 100% BMI 29.54 kg/m? General: healthy, alert, cooperative, pleasant, in no acute distress HEENT: Normocephalic, Eyes: conjunctiva/corneas normal, PERRL, EOMI, wears glasses, Right TM: clear with good landmarks, nl light reflex Left TM: clear with good landmarks, nl light reflex Nares: clear OP : moist without lesions, teeth in good repair Neck: Supple, no lymphadenopahy, no thryoidmegaly CV: regular rate and rhythm, without murmur Lungs: clear to auscultation, without rales or wheeze, good air exchange Breast: normal exam Abdomen: soft, nontender, nondistended, no hepatosplenomegaly, bowel sounds present Genital Urinary: deferred / utd Ext: no edema in LE bilaterally Skin: Clear without rash ASSESSMENT/PLAN: 1. Routine medical exam - ICD9: V70.0, ICD10: Z00.00 (primary diagnosis) - Counseled on healthy diet and regular exercise - Follow up for annual exam in one year 2. Hypertension, essential - ICD9: 401.9, ICD10: I10 - good control on labetalol , continue - Encouraged dietary sodium restriction/DASH diet - Recommended regular aerobic exercise. - Recommend home blood pressure monitoring, to bring results in on next visit 6 month f/u - LABETALOL 200 MG TABLET 3. Encounter for immunization - ICD9: V03.89, ICD10: Z23 - INFLUENZA VACCINE, AGE 6 MO - 64 YR, QUADRIVALENT (AFLURIA, FLULAVAL, FLUZONE) 4. Medication management - ICD9: V58.69, ICD10: Z79.899 ok to d/c zoloft 25 mg, monitor for any return of sx (more content not included)... [facility] 04-01-2023 Note HNO ID: [id number] Author: Cielo An MA Service: ? Author Type: Water System Operator Type: Progress Notes Filed: 04/01/2023 1:40 PM Note Text: HPV Testing due on 2022 Influenza Vaccine(1) due on 02/08/2023 Last 3 Encounter BP Readings: Date: BP: 04/01/2023 123/72[2nd reading arm elevated[ 11/08/2022 119/78 08/09/2022 137/77 LDL Cholesterol (mg/dL) Date Value 03/28/2019 102 06/18/2013 103 HBA1C: Hemoglobin A1C (%) Date Value 06/15/2022 5.5 Protein, Urine (mg/dL) Date Value 03/06/2018 Negative Diabetic Foot and Retinal Eye Exam not Overdue [facility] 04-01-2023 History of Present illness Narrative Batsheva Crooks is a 32 year old female who presents today with concern or complaint of Patient presents with: Yearly Exam Last 3 Encounter BP Readings: Date: BP: 04/01/2023 123/72[2nd reading arm elevated[ 11/08/2022 119/78 08/09/2022 137/77 BPs has been well controlled on labetalol avg 120s/70s at home son born 06/09/21 - Sow on low dose zoloft interested in stopping it needed it and past that has been on it for about a year now Also having heartburn - burning in stomach taking pepcid bid and still w/ some breakthrough sx not having acid come up into throat hasn't tried PPI got cpap when 8 months had it for a couple of months wasn't wearing it enough w/ a new baby now not feeling the symptoms she was feeling w/ the apnea it was mild PAST MEDICAL HISTORY Diagnosis Date Elevated blood pressure Irregular menses PAST SURGICAL HISTORY Procedure Laterality Date DENTAL SURGERY HX wisdom teeth MYRINGOTOMY ASPIR&/EUSTACHIAN TUBE NFLTJ ANES Myringotomy/tubes MEDICATIONS: Current Outpatient Medications Medication Sig labetalol (TRANDATE) 200 mg tablet Take 1 tablet by mouth twice daily. ergocalciferol, vitamin D2, (VITAMIN D2 ORAL) fluticasone (FLONASE) 50 mcg/actuation nasal spray Use 1 [place] in each nostril daily at bedtime. Use as directed. (Patient taking differently: Use 1 [place] in each nostril daily at bedtime. Use as directed. PRN) No current facility-administered medications for this visit. 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[employer] EXERCISE: has to get back to walking more consistently again, hoping to rejoin gym -[employer] CHOLESTEROL: Cholesterol, Total (mg/dL) Date Value 03/28/2019 166 06/18/2013 188 HDL Cholesterol (mg/dL) Date Value 03/28/2019 37 06/18/2013 58 LDL Cholesterol (mg/dL) Date Value 03/28/2019 102 06/18/2013 103 Triglyceride (mg/dL) Date Value 03/28/2019 136 06/18/2013 133 COLON CA SCREENING: n/i, denies sx IMMUNIZATIONS: utd BMD: n/i FAMILY HISTORY: FAMILY HISTORY Problem Relation Age of Onset None Mother Hypertension Father other (Parkinsons) Maternal Grandfather Ischemic Heart Disease Paternal Grandmother Ischemic Heart Disease Paternal Grandfather Hypertension Brother Asthma Sister SOCIAL HISTORY: Social History Social History Narrative 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 No fevers, tired but that's not new, no night sweats. No changes in hearing, vision or voice. No problems with teeth, swallowing or thyroid. No chest pain or palpitations. No cough or SOB. No wheezing. No LE edema. No abdominal pain, nausea or vomiting. No constipation or diarrhea. No urinary incontinence, dysuria, or vaginal discharge. No changes in skin, moles or rashes. No stiff, painful or swollen joints. No back pain or discomfort. PHYSICAL EXAMINATION: BP 123/72 Pulse (!) 52 Temp 36.7 C (98 F) (Temporal Artery) Resp 16 Ht 164.2 cm (5' 4.65 ) Wt 79.7 kg (175 lb 9.6 oz) LMP 03/11/2023 SpO2 100% BMI 29.54 kg/m General: healthy, alert, cooperative, pleasant, in no acute distress HEENT: Normocephalic, Eyes: conjunctiva/corneas normal, PERRL, EOMI, wears glasses, Right TM: clear with good landmarks, nl light reflex Left TM: clear with good landmarks, nl light reflex Nares: clear OP : moist without lesions, teeth in good repair Neck: Supple, no lymphadenopahy, no thryoidmegaly CV: regular rate and rhythm, without murmur Lungs: clear to auscultation, without rales or wheeze, good air exchange Breast: normal exam Abdomen: soft, nontender, nondistended, no hepatosplenomegaly, bowel sounds present Genital Urinary: deferred / utd Ext: no edema in LE bilaterally Skin: Clear without rash ASSESSMENT/PLAN: 1. Routine medical exam - ICD9: V70.0, ICD10: Z00.00 (primary diagnosis) - Counseled on healthy diet and regular exercise - Follow up for annual exam in one year 2. Hypertension, essential - ICD9: 401.9, ICD10: I10 - good control on labetalol , continue - Encouraged dietary sodium restriction/DASH diet - Recommended regular aerobic exercise. - Recommend home blood pressure monitoring, to bring results in on next visit 6 month f/u - LABETALOL 200 MG TABLET 3. Encounter for immunization - ICD9: V03.89, ICD10: Z23 - INFLUENZA VACCINE, AGE 6 MO - 64 YR, QUADRIVALENT (AFLURIA, FLULAVAL, FLUZONE) 4. Medication management - ICD9: V58.69, ICD10: Z79.899 ok to d/c zoloft 25 mg, monitor for any return of sx of anxiety/ depressed mood and f/u prn Myriam Camargo MD HPV Testing due on 2022 Influenza Vaccine(1) due on 02/08/2023 Last 3 Encounter BP Readings: Date: BP: 04/01/2023 123/72[2nd reading arm elevated[ 11/08/2022 119/78 08/09/2022 137/77 LDL Cholesterol (mg/dL) Date Value 03/28/2019 102 06/18/2013 103 HBA1C: Hemoglobin A1C (%) Date Value 06/15/2022 5.5 Protein, Urine (mg/dL) Date Value 03/06/2018 Negative Diabetic Foot and Retinal Eye Exam not Overdue documented in this encounter [facility] 04-01-2023 Instructions Cielo An MA - 04/01/2023 12:57 PM EDT [facility] TEST INFORMATION [facility] LAB HOURS: Lab is open: 7:30am to 5:00pm - , 7:30am to 4:00pm on Sat and 8am -12pm on Sat. The lab is located in [facility] on the first floor. There is a registration window at the lab, available 7 am to 3 pm Saturday - Saturday. If registration is unavailable at the lab, you may register at the patient registration office near the front lobby of the hospital. SCHEDULING A LAB APPOINTMENT: Laboratory appointments are recommended.Walk ins are still accepted. Call [phone] or schedule via [employer] scheduling ticket. ROUTINE LAB ORDERS 60 days after they are entered. If your lab orders , you may be required to wait in the lab while they are reinstated FUTURE ORDERS are lab tests to be completed on the EXPECTED date. These orders 60 days after the expected date. STANDING ORDERS are recurring orders with an expiration date. The interval will indicate how often the test should be completed. CT / MRI / IVP If you have lab tests ordered for one of these radiology exams, please complete the blood work at least one day prior to the scheduled exam. PRESCRIPTION REFILL REQUESTS Request prescription refills through your [employer] account or contact your Pharmacy. My Chart Schedule My Appointment enables you to view your established primary care provider's open schedule and book an appointment online in real-time. This feature is available in internal medicine, family medicine, or pediatrics at any of our [facility] locations and main campus. documented in this encounter [facility] 04-01-2023 Nurse Note Patient presents with: Yearly Exam documented in this encounter [facility] 02-28-2023 Miscellaneous Notes Patient's request for medication is as follows: Requested Prescriptions Signed Prescriptions Disp Refills labetalol (TRANDATE) 200 mg tablet 60 tablet 1 Sig: Take 1 tablet by mouth twice daily. Prescription(s) as above. Please process accordingly. Lisandra Gunter APRN.DIRECTOR HOME HEALTH documented in this encounter [facility] 01-22-2023 Miscellaneous Notes Patient's request for medication is as follows: Requested Prescriptions Signed Prescriptions Disp Refills labetalol (TRANDATE) 100 mg tablet 60 tablet 1 Sig: Take 1 tablet by mouth twice daily. Prescription(s) as above. Please process accordingly. Lisandra Gunter APRN.DIRECTOR HOME HEALTH documented in this encounter [facility] 11-08-2022 Note HNO ID: [id number] Author: Myriam Camargo MD Service: ? Author Type: Physician Type: Progress Notes Filed: 11/08/2022 4:11 PM Note Text: Batsheva Crooks is a 32 year old female who presents today with concern or complaint of Patient presents with: Follow Up home bps high 120s/80s on procardia xl 90 mg and ocp changed to progesterone only type no cp, sob, palp Last 3 Encounter BP Readings: Date: BP: 11/08/2022 119/78 08/09/2022 137/77 07/03/2022 142/66 doing well w/zoloft, feels it's enough and that it is needed started w/ anxiety son is 18 months PAST MEDICAL HISTORY Diagnosis Date Elevated blood pressure Irregular menses MEDICATIONS Current Outpatient Medications Medication Sig Norethindrone, Contraceptive, 0.35 mg tablet Take 1 tablet by mouth once daily. ergocalciferol, vitamin D2, (VITAMIN D2 ORAL) fluticasone (FLONASE) 50 mcg/actuation nasal spray Use 1 [place] in each nostril daily at bedtime. Use as directed. (Patient taking differently: Use 1 [place] in each nostril daily at bedtime. Use as directed. PRN) sertraline (ZOLOFT) 25 mg tablet Take 1 tablet by mouth once daily. NIFEdipine ER (PROCARDIA XL) 90 mg 24 hr tablet Take 1 tablet by mouth once daily. No current facility-administered medications for this visit. ALLERGIES: Seasonal Allergies PHYSICAL EXAMINATION: BP 119/78 Pulse 63 Temp 36.9 ?C (98.5 ?F) Resp 16 Ht 162.6 cm (5' 4 ) Wt 77.1 kg (170 lb) LMP 11/02/2022 SpO2 99% BMI 29.18 kg/m? General appearance: alert, cooperative, pleasant, in no acute distress Neck: supple and no adenopathy Heart: regular rate and rhythm, without murmur Lungs: clear to auscultation, without rales or wheeze, good air exchange Lower Extremities: no edema, normal DP/PT pulses ASSESSMENT/PLAN: 1. Hypertension, essential - ICD9: 401.9, ICD10: I10 (primary diagnosis) - Controlled - Continue current medications - Recommend home blood pressure monitoring, to bring results to next visit - Encouraged sodium restriction, DASH or Mediterranean diet - Recommend regular aerobic exercise - Follow up in 6 months for hypertension visit 2. Anxiety - ICD9: 300.00, ICD10: F41.9 doing well, continue - SERTRALINE 25 MG TABLET Myriam Camargo MD [facility] 11-08-2022 Note HNO ID: [id number] Author: Antonella Carter MA Service: ? Author Type: Water System Operator Type: Progress Notes Filed: 11/08/2022 4:11 PM Note Text: HEPATITIS C SCREENING Never done HIV SCREENING Never done BP CONTROLLED (<130/80) Never done HPV TESTING due on [address] [facility] 11-08-2022 History of Present illness Narrative Batsheva Crooks is a 32 year old female who presents today with concern or complaint of Patient presents with: Follow Up home bps high 120s/80s on procardia xl 90 mg and ocp changed to progesterone only type no cp, sob, palp Last 3 Encounter BP Readings: Date: BP: 11/08/2022 119/78 08/09/2022 137/77 07/03/2022 142/66 doing well w/zoloft, feels it's enough and that it is needed started w/ anxiety son is 18 months PAST MEDICAL HISTORY Diagnosis Date Elevated blood pressure Irregular menses MEDICATIONS Current Outpatient Medications Medication Sig Norethindrone, Contraceptive, 0.35 mg tablet Take 1 tablet by mouth once daily. ergocalciferol, vitamin D2, (VITAMIN D2 ORAL) fluticasone (FLONASE) 50 mcg/actuation nasal spray Use 1 [place] in each nostril daily at bedtime. Use as directed. (Patient taking differently: Use 1 [place] in each nostril daily at bedtime. Use as directed. PRN) sertraline (ZOLOFT) 25 mg tablet Take 1 tablet by mouth once daily. NIFEdipine ER (PROCARDIA XL) 90 mg 24 hr tablet Take 1 tablet by mouth once daily. No current facility-administered medications for this visit. ALLERGIES: Seasonal Allergies PHYSICAL EXAMINATION: BP 119/78 Pulse 63 Temp 36.9 C (98.5 F) Resp 16 Ht 162.6 cm (5' 4 ) Wt 77.1 kg (170 lb) LMP 11/02/2022 SpO2 99% BMI 29.18 kg/m General appearance: alert, cooperative, pleasant, in no acute distress Neck: supple and no adenopathy Heart: regular rate and rhythm, without murmur Lungs: clear to auscultation, without rales or wheeze, good air exchange Lower Extremities: no edema, normal DP/PT pulses ASSESSMENT/PLAN: 1. Hypertension, essential - ICD9: 401.9, ICD10: I10 (primary diagnosis) - Controlled - Continue current medications - Recommend home blood pressure monitoring, to bring results to next visit - Encouraged sodium restriction, DASH or Mediterranean diet - Recommend regular aerobic exercise - Follow up in 6 months for hypertension visit 2. Anxiety - ICD9: 300.00, ICD10: F41.9 doing well, continue - SERTRALINE 25 MG TABLET Myriam Camargo MD HEPATITIS C SCREENING Never done HIV SCREENING Never done BP CONTROLLED (<130/80) Never done HPV TESTING due on 2022 documented in this encounter [facility] 09-03-2022 Miscellaneous Notes FYI documented in this encounter [facility] 08-10-2022 Miscellaneous Notes Left message for patient to call back, also sent patient mychart message Please ask patient to send in readings to review in couple weeks. Patient's request for medication is as follows: Requested Prescriptions Signed Prescriptions Disp Refills NIFEdipine ER (PROCARDIA XL) 90 mg 24 hr tablet 30 tablet 1 Sig: Take 1 tablet by mouth once daily. Prescription(s) as above. Please process accordingly. Lisandra Gunter APRN.[place]LIN Patient returned call, discussed message below. SE of Nifedipine - flushing and BRITO about three times a week. She states these are tolerable. Will call office if symptoms worsen or if new SE occur. She is comfortable with increasing dosage. Please notify her when sent. Caro Sheets RN Called patient regarding message below, no answer. Left message to call office back. Caro Sheets RN Reason for Disposition Message left on unidentified voice mail. Phone number verified. Protocols used: No Contact or Duplicate Contact [id number] Home machine running slightly higher than office. How is she feeling. Any med side effects? Bp still slightly elevated. Should we consider further increasing nifedipine to 90 mg daily? Patient is here today for a bp she stated she has been checking her bp at home with a base reading of 143/86 In office today her bp on our machine was 137/77 I tested her machine and got 142/76 please review and advise documented in this encounter [facility] 08-09-2022 Note HNO ID: [id number] Author: Marifer Brunner MA Service: ? Author Type: Water System Operator Type: Progress Notes Filed: 08/09/2022 2:30 PM Note Text: Patient is here today for a bp she stated she has been checking her bp at home with a base reading of 143/86 In office today her bp on our machine was 137/77 I tested her machine and got 142/76 please review and advise [facility] 07-03-2022 Note HNO ID: [id number] Author: Lisandra Gunter APRN.FR[place]LIN Service: ? Author Type: Nurse Practitioner Type: Progress Notes Filed: 07/03/2022 6:58 PM Note Text: Patient presents with: Follow Up: B/p check Started nifedipine Initially had some facial flushing, now resolved Otherwise no AE Home Bps higher 130/80s No sx referable to elev Bp Saw endo and ruled out secondary HTN causes Last 3 Encounter BP Readings: Date: BP: 07/03/2022 142/66 06/15/2022 138/80 05/10/2022 122/70 Lipase did decrease some Dr Tariq would like another repeat next month Initially saw Gi for gerd which resolved after 2 month protonix tx PHYSICAL EXAMINATION: BP 142/66 Pulse 65 Temp 36.1 ?C (96.9 ?F) (Temporal) Resp 16 Wt 75.8 kg (167 lb 3.2 oz) LMP 06/25/2022 (Approximate) SpO2 100% BMI 28.70 kg/m? General appearance: healthy, alert, cooperative, pleasant, in no acute distress ASSESSMENT/PLAN: 1. Hypertension, essential - ICD9: 401.9, ICD10: I10 (primary diagnosis) - suboptimal control - Increase nifedipine - Encouraged dietary sodium restriction/DASH diet - Recommended regular aerobic exercise. - Recommend home blood pressure monitoring, to bring results in on next visit - Follow up in 1 month via mychart - Goal of BP <130/80 - NIFEDIPINE ER 60 MG TABLET,EXTENDED RELEASE 24 HR 2. Elevated lipase - ICD9: 790.5, ICD10: R74.8 Repeat labs as instructed by Gi Will re-review with Bp update 3. GERD without esophagitis - ICD9: 530.81, ICD10: K21.9 Improved Lisandra Gunter APRN.FRANKLIN [facility] 07-03-2022 Note HNO ID: [id number] Author: Mandy Mendez Ma Service: ? Author Type: ? Type: Progress Notes Filed: 07/03/2022 6:58 PM Note Text: HEPATITIS C SCREENING Never done HIV SCREENING Never done BP CONTROLLED (<130/80) Never done COVID-19 VACCINE(4 - Booster for Moderna series) due on 08/25/2021 HPV TESTING due on 2022 DEPRESSION ASSESSMENT due on 06/10/[address] [facility] 07-03-2022 History of Present illness Narrative Patient presents with: Follow Up: B/p check Started nifedipine Initially had some facial flushing, now resolved Otherwise no AE Home Bps higher 130/80s No sx referable to elev Bp Saw endo and ruled out secondary HTN causes Last 3 Encounter BP Readings: Date: BP: 07/03/2022 142/66 06/15/2022 138/80 05/10/2022 122/70 Lipase did decrease some Dr Tariq would like another repeat next month Initially saw Gi for gerd which resolved after 2 month protonix tx PHYSICAL EXAMINATION: BP 142/66 Pulse 65 Temp 36.1 C (96.9 F) (Temporal) Resp 16 Wt 75.8 kg (167 lb 3.2 oz) LMP 06/25/2022 (Approximate) SpO2 100% BMI 28.70 kg/m General appearance: healthy, alert, cooperative, pleasant, in no acute distress ASSESSMENT/PLAN: 1. Hypertension, essential - ICD9: 401.9, ICD10: I10 (primary diagnosis) - suboptimal control - Increase nifedipine - Encouraged dietary sodium restriction/DASH diet - Recommended regular aerobic exercise. - Recommend home blood pressure monitoring, to bring results in on next visit - Follow up in 1 month via mychart - Goal of BP <130/80 - NIFEDIPINE ER 60 MG TABLET,EXTENDED RELEASE 24 HR 2. Elevated lipase - ICD9: 790.5, ICD10: R74.8 Repeat labs as instructed by Gi Will re-review with Bp update 3. GERD without esophagitis - ICD9: 530.81, ICD10: K21.9 Improved Lisandra Gunter APRN.DIRECTOR HOME HEALTH HEPATITIS C SCREENING Never done HIV SCREENING Never done BP CONTROLLED (<130/80) Never done COVID-19 VACCINE(4 - Booster for Moderna series) due on 08/25/2021 HPV TESTING due on 2022 DEPRESSION ASSESSMENT due on 06/10/2022 documented in this encounter [facility] 06-19-2022 Miscellaneous Notes See other encounter Patient has been identified by name and date of : Yes Requested Prescriptions Pending Prescriptions Disp Refills sertraline (ZOLOFT) 25 mg tablet 30 tablet 2 Sig: Take 1 tablet by mouth once daily. RX INSTRUCTIONS: Patient aware RX will be sent to pharmacy. No need to notify patient. Pharmacy initiated this call and will advise patient office is requesting new RX from provider Ashely Matthews [facility] documented in this encounter [facility] 06-19-2022 Miscellaneous Notes See refill encounter documented in this encounter [facility] 06-19-2022 Miscellaneous Notes Spoke with patient and informed her she should have refill still. She will call the pharmacy. Loraine Grider LPN Refill at pharmacy Last appointment: 05/10/22 Next appointment: 06/29/22 Pharmacy verified in Epic. Refill(s) requested: Requested Prescriptions Pending Prescriptions Disp Refills sertraline (ZOLOFT) 25 mg tablet [Pharmacy Med Name: sertraline 25 mg tablet] 30 tablet 1 Sig: TAKE 1 TABLET BY MOUTH ONCE DAILY Order(s) pended. Please advise. Loraine Grider LPN, PERRY documented in this encounter [facility] 06-15-2022 Note HNO ID: [id number] Author: Pedro Carrera MD Service: ? Author Type: Physician Type: Progress Notes Filed: 06/15/2022 4:05 PM Note Text: [facility] Initial Clinic Visit Note NAME: Batsheva Crooks PCP: Myriam Camargo MD Requesting Provider: Lisandra Gunter [id number] [facility] [id number] My final recommendations will be communicated back to the requesting physician by way of shared medical record or letter via US mail. Chief Complaint: hypertension History of Present Illness: Batsheva Crooks is a 32 year old female presenting with chronic hx of idiopathic primary HTN. She is here to inquire whether there is an endocrinology etiology to the HTN. 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 She is compliant with checking her BP once weekly and taking her medications. She takes oral hormonal contraceptive, in the past when she was off of it for ~2 years, she continued to have elevated BP readings. She currently takes nifedipine for HTN. While , she had pre-eclampsia and gestation DM managed with diet only. In addition, she complains of fatigue that has also been chronic. Hypertension: yes Chest pain: No Palpitations: no Diaphoresis: no Headache: no Pallor: no Tremor: no Proximal Muscle Weakness: no Thin Skin/ easy bruising/ stretch skelton: no Flushing: no Hirsutism: no Darkening of skin/gums:No Salt craving:No Hypotension: No Dizziness/lightheadedness: No Difficulty raising arms overhead, difficulty getting up from a seated position:No Excess hair growth over face/chin/chest/or abdomen:No Fatigue: No Nausea/Vomiting: No Diarrhea: No HISTORY REVIEWED (electronic chart updated): PAST MEDICAL HISTORY Diagnosis Date Elevated blood pressure Irregular menses PAST SURGICAL HISTORY Procedure Laterality Date DENTAL SURGERY HX wisdom teeth MYRINGOTOMY ASPIRAND/EUSTACHIAN TUBE NFLTJ ANES Myringotomy/tubes FAMILY HISTORY Problem Relation Age of Onset None Mother Hypertension Father other (Parkinsons) Maternal Grandfather Ischemic Heart Disease Paternal Grandmother Ischemic Heart Disease Paternal Grandfather Hypertension Brother Asthma Sister Social History Tobacco Use Smoking status: Never Smokeless tobacco: Never Substance Use Topics Alcohol use: Yes Comment: rarely Drug use: No Current Outpatient Medications Medication Sig NIFEdipine ER (PROCARDIA XL) 30 mg 24 hr tablet Take 1 tablet by mouth once daily. sertraline (ZOLOFT) 25 mg tablet Take 1 tablet by mouth once daily. fluticasone (FLONASE) 50 mcg/actuation nasal spray Use 1 [place] in each nostril daily at bedtime. Use as directed. (Patient taking differently: Use 1 [place] in each nostril daily at bedtime. Use as directed. PRN) Desogestrel-Ethinyl Estradiol (APRI) 0.15-0.03 mg per tablet Take 1 tablet by mouth once daily. No current facility-administered medications for this visit. ALLERGIES Allergen Reactions Seasonal Allergies Other: See Comments CONGESTION REVIEW OF SYSTEM: Review of Systems Constitutional: Positive for fatigue and recent unintentional weight change. Negative for night sweats. HENT: Negative for trouble swallowing, postnasal drip and thyroid pain (lower neck). Eyes: Negative for visual disturbance. Respiratory: Negative for difficulty breathing. Cardiovascular: Negative for chest pain, leg swelling and claudication. Gastrointestinal: Positive for heartburn. Negative for nausea, vomiting, abdominal pain, diarrhea and constipation. Genitourinary: Positive for menstruating. Negative for urgency, frequent urination, slower stream, irregular menses and amenorrhea. Musculoskeletal: Negative for myalgias, muscle weakness and bone pain. Skin: Negative for skin color change. Neurological: Negative for dizziness, headaches and numbness. Endo/Heme/Allergies: Negative for polydipsia, cold intolerance when others are comfortable, hot flashes, flushing and changes in body hair. PHYSICAL EXAMINATION: BP: 138/80 Pulse: 88 SpO2: 98 % Physical Exam Vitals reviewed. Constitutional: Appearance: Normal appearance. Neurological: General: No focal deficit present. Mental Status: She is alert and oriented to person, place, and time. LABS: TSH (uU/mL) Date Value 03/28/2019 3.050 ASSESSMENT: Batsheva Crooks is a 32 year old female with primary HTN presenting to endocrinology for evaluation. She does not have a hx of rapid weight gain or hirsutism or episodes of HTN with palpitations concerning for pheochromocytoma. She does not hx of mild hypokalemia while she was on anti-hypertensives but since switching the medications, K levels have been normal. She takes hormonal oral contraceptives but while off of them for ~2 years, HTN did not resolve. In 2019, her TSH was normal, there is no hx of hypercalcemia in the past. She has hx of gestatio (more content not included)... [facility] 06-15-2022 History of Present illness Narrative [facility] Initial Clinic Visit Note NAME: Batsheva Crooks PCP: Myriam Camargo MD Requesting Provider: Lisandra Gunter [address] [facility] [id number] My final recommendations will be communicated back to the requesting physician by way of shared medical record or letter via [place] mail. Chief Complaint: hypertension History of Present Illness: Batsheva Crooks is a 32 year old female presenting with chronic hx of idiopathic primary HTN. She is here to inquire whether there is an endocrinology etiology to the HTN. 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 She is compliant with checking her BP once weekly and taking her medications. She takes oral hormonal contraceptive, in the past when she was off of it for ~2 years, she continued to have elevated BP readings. She currently takes nifedipine for HTN. While , she had pre-eclampsia and gestation DM managed with diet only. In addition, she complains of fatigue that has also been chronic. Hypertension: yes Chest pain: No Palpitations: no Diaphoresis: no Headache: no Pallor: no Tremor: no Proximal Muscle Weakness: no Thin Skin/ easy bruising/ stretch skelton: no Flushing: no Hirsutism: no Darkening of skin/gums:No Salt craving:No Hypotension: No Dizziness/lightheadedness: No Difficulty raising arms overhead, difficulty getting up from a seated position:No Excess hair growth over face/chin/chest/or abdomen:No Fatigue: No Nausea/Vomiting: No Diarrhea: No HISTORY REVIEWED (electronic chart updated): PAST MEDICAL HISTORY Diagnosis Date Elevated blood pressure Irregular menses PAST SURGICAL HISTORY Procedure Laterality Date DENTAL SURGERY HX wisdom teeth MYRINGOTOMY ASPIR&/EUSTACHIAN TUBE NFLTJ ANES Myringotomy/tubes FAMILY HISTORY Problem Relation Age of Onset None Mother Hypertension Father other (Parkinsons) Maternal Grandfather Ischemic Heart Disease Paternal Grandmother Ischemic Heart Disease Paternal Grandfather Hypertension Brother Asthma Sister Social History Tobacco Use Smoking status: Never Smokeless tobacco: Never Substance Use Topics Alcohol use: Yes Comment: rarely Drug use: No Current Outpatient Medications Medication Sig NIFEdipine ER (PROCARDIA XL) 30 mg 24 hr tablet Take 1 tablet by mouth once daily. sertraline (ZOLOFT) 25 mg tablet Take 1 tablet by mouth once daily. fluticasone (FLONASE) 50 mcg/actuation nasal spray Use 1 [place] in each nostril daily at bedtime. Use as directed. (Patient taking differently: Use 1 [place] in each nostril daily at bedtime. Use as directed. PRN) Desogestrel-Ethinyl Estradiol (APRI) 0.15-0.03 mg per tablet Take 1 tablet by mouth once daily. No current facility-administered medications for this visit. ALLERGIES Allergen Reactions Seasonal Allergies Other: See Comments CONGESTION REVIEW OF SYSTEM: Review of Systems Constitutional: Positive for fatigue and recent unintentional weight change. Negative for night sweats. HENT: Negative for trouble swallowing, postnasal drip and thyroid pain (lower neck). Eyes: Negative for visual disturbance. Respiratory: Negative for difficulty breathing. Cardiovascular: Negative for chest pain, leg swelling and claudication. Gastrointestinal: Positive for heartburn. Negative for nausea, vomiting, abdominal pain, diarrhea and constipation. Genitourinary: Positive for menstruating. Negative for urgency, frequent urination, slower stream, irregular menses and amenorrhea. Musculoskeletal: Negative for myalgias, muscle weakness and bone pain. Skin: Negative for skin color change. Neurological: Negative for dizziness, headaches and numbness. Endo/Heme/Allergies: Negative for polydipsia, cold intolerance when others are comfortable, hot flashes, flushing and changes in body hair. PHYSICAL EXAMINATION: BP: 138/80 Pulse: 88 SpO2: 98 % Physical Exam Vitals reviewed. Constitutional: Appearance: Normal appearance. Neurological: General: No focal deficit present. Mental Status: She is alert and oriented to person, place, and time. LABS: TSH (uU/mL) Date Value 03/28/2019 3.050 ASSESSMENT: Batsheva Crooks is a 32 year old female with primary HTN presenting to endocrinology for evaluation. She does not have a hx of rapid weight gain or hirsutism or episodes of HTN with palpitations concerning for pheochromocytoma. She does not hx of mild hypokalemia while she was on anti-hypertensives but since switching the medications, K levels have been normal. She takes hormonal oral contraceptives but while off of them for ~2 years, HTN did not resolve. In 2019, her TSH was normal, there is no hx of hypercalcemia in the past. She has hx of gestational DM, pre-eclampsia and also complains of chronic fatigue. PLAN: HTN - Check CMP, TSH, PTH - No strong indication to check her hyperaldosteronism or pheochromocytoma or Gianna's syndrome 2. Hx of gestational DM - Check HbA1c 3. Chronic fatigue - Check vitamin D levels I spent a total of 20 minutes on the date of the service which included preparing to see the patient, [id number] patient care, completing clinical documentation, obtaining and/or reviewing separately obtained history, performing a medically appropriate examination, counseling and educating the patient/family/caregiver, and ordering medications, tests, or procedures. Pedro Carrera MD [facility] Endocrinology and Metabolism [place] [facility] [phone] Medical Decision Making: Problems: Low: Stable chronic illness Data: Unique test result(s) reviewed: 3+ Unique test(s) ordered: 3+ Medical Decision Making Level: 3 - Low Answers submitted by the patient for this visit: Endocrine Review of Systems (Submitted on 06/14/2022) Blood Clots?: No Joint Pain or Stiffness: No documented in this encounter [facility] 05-21-2022 Note HNO ID: [id number] Author: VLADIMIR Cloon Service: Radiology Author Type: Technologist Type: Progress Notes Filed: 05/21/2022 3:54 PM Note Text: Radiology Service Progress Note PATIENT NAME: Batsheva Crooks DATE OF SERVICE: May 21, 2022 TIME: 3:53 PM PATIENT IDENTITY VERIFICATION COMPLETED USING TWO (2) IDENTIFIERS: Name and Date of confirmed by patient verbally and Name and Date of confirmed by identification band. FALL SCREENING: Has the patient had 2 falls in the last year or 1 fall with injury or currently using an Ambulatory Assistive Device (Walker, Cane, Wheelchair, Crutches, etc.)? No PATIENT GENDER DATA: Female. status: Unknown status: N/A PATIENT RELEVANT IMPLANT DATA REVIEWED: Not Applicable RADIOLOGY DEPARTMENT: Ultrasound PERIPHERAL IV DATA: Not applicable SIGNED BY: VLADIMIR Colon May 21, 2022 3:53 PM [facility] 05-21-2022 History of Present illness Narrative Radiology Service Progress Note PATIENT NAME: Batsheva Crooks DATE OF SERVICE: May 21, 2022 TIME: 3:53 PM PATIENT IDENTITY VERIFICATION COMPLETED USING TWO (2) IDENTIFIERS: Name and Date of confirmed by patient verbally and Name and Date of confirmed by identification band. FALL SCREENING: Has the patient had 2 falls in the last year or 1 fall with injury or currently using an Ambulatory Assistive Device (Walker, Cane, Wheelchair, Crutches, etc.)? No PATIENT GENDER DATA: Female. status: Unknown status: N/A PATIENT RELEVANT IMPLANT DATA REVIEWED: Not Applicable RADIOLOGY DEPARTMENT: Ultrasound PERIPHERAL IV DATA: Not applicable SIGNED BY: VLADIMIR Colon May 21, 2022 3:53 PM documented in this encounter [facility] 05-10-2022 Note HNO ID: [id number] Author: Lisandra Gunter APRN.DIRECTOR HOME HEALTH Service: ? Author Type: Nurse Practitioner Type: Progress Notes Filed: 05/10/2022 8:31 AM Note Text: Patient presents with: Follow Up HTN: Ms. Crooks indicates that she is feeling well and denies any symptoms referable to elevated blood pressure. Patient denies any side effects of her medication(s) and is compliant with their regimen. She does check BP's away from this office with average BP's in the 120/70s range. Last 3 Encounter BP Readings: Date: BP: 05/10/2022 122/70 03/20/2022 130/78 01/18/2022 132/74 Has had cold for one week C/o sinus congestion, cough, aches This morning woke up with L eye red and crusted shut, some irritation, no pain or light sensitivity Is overall improving Anxiety a lot better Going well with baby at home PAST MEDICAL HISTORY Diagnosis Date Elevated blood pressure Irregular menses PAST SURGICAL HISTORY Procedure Laterality Date DENTAL SURGERY HX wisdom teeth MYRINGOTOMY ASPIRAND/EUSTACHIAN TUBE NFLTJ ANES Myringotomy/tubes Current Outpatient Medications on File Prior to Visit Medication Sig sertraline (ZOLOFT) 25 mg tablet Take 1 tablet by mouth once daily. fluticasone (FLONASE) 50 mcg/actuation nasal spray Use 1 [place] in each nostril daily at bedtime. Use as directed. (Patient taking differently: Use 1 [place] in each nostril daily at bedtime. Use as directed. PRN) pantoprazole DR (PROTONIX) 40 mg tablet Take 40 mg by mouth once daily. (Patient not taking: Reported on 05/10/2022) azelastine (ASTELIN) 0.1% nasal spray Use 2 Sprays in each nostril twice daily. Use as directed. No current facility-administered medications on file prior to visit. ALLERGIES Allergen Reactions Seasonal Allergies Other: See Comments CONGESTION PHYSICAL EXAMINATION: BP 122/70 Pulse 79 Temp 37.1 ?C (98.7 ?F) (Temporal) Resp 16 Wt 72.4 kg (159 lb 9.6 oz) LMP 02/11/2022 (Approximate) SpO2 100% BMI 27.40 kg/m? General appearance: healthy, alert, cooperative, pleasant, in no acute distress Head: Normaocephalic Eyes: mild injection on left Ears: Inspection of External ears normal Heart: regular rate and rhythm, without murmur Lungs: clear to auscultation, without rales or wheeze, good air exchange ASSESSMENT/PLAN: 1. Hypertension, essential - ICD9: 401.9, ICD10: I10 (primary diagnosis) - good control - Continue current medication(s) - Recommended regular aerobic exercise. - Recommend home blood pressure monitoring, to bring results in on next visit - Recheck in 6 months, sooner should new symptoms or problems arise. - Goal of BP <130/80 - LISINOPRIL 40 MG TABLET 2. Anxiety - ICD9: 300.00, ICD10: F41.9 Improved / stable Continue zoloft 3. Hypertension, unspecified type - ICD9: 401.9, ICD10: I10 Patient interested in secondary HTN work up - to see endo - CONSULT TO ENDOCRINOLOGY 4. URI, acute - ICD9: 465.9, ICD10: J06.9 ? Flu Ok to start polytrim if eye sx worsen or persist - Discussed viral etiology and rationale for treatment. - Symptomatic treatment with prn analgesia - Supportive care with fluids and rest - COVID WITH FLUA+B, ROUTINE - POLYMYXIN B SULFATE 10,000 UNIT-TRIMETHOPRIM 1 MG/ML EYE DROPS Lisandra Gunter, FILM COATER.[facility] 05-10-2022 Influenza virus A and B RNA and SARS-CoV-2 (COVID-19) N gene panel VIKTOR+probe (Resp) COVID 19 RESULT: SARS-CoV-2 (Agent of COVID-19) Not Detected by RT-PCR or equivalent method. marco antonio [id number] (TERRI)_EUA This test was developed and its performance characteristics determined by [facility]'s [facility] [place]. This test has been authorized by FDA under an Emergency Use Authorization (EUA). This test has been validated in accordance with the FDA's Guidance Document Policy for Diagnostics Testing in Laboratories Certified to Perform High Complexity Testing under CLIA prior to Emergency use Authorization for Coronavirus Disease 2019 during the Public Health Emergency issued on August 08, 2019. Test performed by [facility], [facility] [place], [address] [place] [address]. INFLUENZA A PCR: Negative for Influenza A by RT-PCR INFLUENZA B PCR: Negative for Influenza B by RT-PCR [facility] documented as of this encounter (statuses as of 04/01/2023) [facility]06-08-2018 History of Past illness Narrative* Problem Noted Date Diagnosed Date Resolved Date Breakthrough bleeding on control pills 8 04/01/2023 documented as of this encounter (statuses as of 04/18/2023) [facility] note* Diagnosis Anxiety- Primary Anxiety state, unspecified Hypertension, essential Unspecified essential hypertension [facility] Diagnosis Special screening examination for viral disease- Primary Special screening examination for unspecified viral disease Hypertension, essential Unspecified essential hypertension Screening for HIV (human immunodeficiency virus) Special screening examination for other specified viral diseases [facility] Diagnosis Hypertension, essential Unspecified essential hypertension [facility] Diagnosis Routine medical exam- Primary Routine general medical examination at a health care facility Hypertension, essential Unspecified essential hypertension Special screening examination for viral disease Special screening examination for unspecified viral disease Screening for HIV (human immunodeficiency virus) Special screening examination for other specified viral diseases Encounter for immunization Need for other specified prophylactic vaccination against single bacterial disease History of gestational diabetes Personal history of gestational diabetes GERD without esophagitis Esophageal reflux SANDRA (obstructive sleep apnea) Obstructive sleep apnea (adult) (pediatric) Anxiety Anxiety state, unspecified [facility] Diagnosis Anxiety Anxiety state, unspecified [facility] Diagnosis Hypertension, essential- Primary Unspecified essential hypertension Encounter for immunization Need for other specified prophylactic vaccination against single bacterial disease Anxiety Anxiety state, unspecified [facility] Diagnosis Anxiety Anxiety state, unspecified [facility] Diagnosis Anxiety Anxiety state, unspecified [facility] Diagnosis Hypertension, essential- Primary Unspecified essential hypertension Anxiety Anxiety state, unspecified Hypertension, unspecified type URI, acute Acute upper respiratory infections of unspecified site [facility] Diagnosis Hypertension, unspecified type- Primary Increased body mass index Other symptoms concerning nutrition, metabolism, and development [facility] Diagnosis Anxiety Anxiety state, unspecified [facility] Diagnosis Hypertension, essential- Primary Unspecified essential hypertension Elevated lipase Other nonspecific abnormal serum enzyme levels GERD without esophagitis Esophageal reflux documented in this encounter [facility] note* Diagnosis Hypertension, essential- Primary Unspecified essential hypertension Anxiety Anxiety state, unspecified documented in this encounter [facility] note* Diagnosis Hypertension, essential- Primary Unspecified essential hypertension documented in this encounter [facility] note* Diagnosis Hypertension, essential- Primary Unspecified essential hypertension documented in this encounter [facility] note* Diagnosis Routine medical exam- Primary Routine general medical examination at a health care facility Hypertension, essential Unspecified essential hypertension Encounter for immunization Need for other specified prophylactic vaccination against single bacterial disease Medication management Encounter for long-term (current) use of other medications documented in this encounter [facility] Summary Purpose Family History No Family History Records FoundNo Family History Records FoundNo Family History Records FoundNo Family History Records Found Advance Directives No Advanced Directives Records FoundNo Advanced Directives Records FoundNo Advanced Directives Records FoundNo Advanced Directives Records Found Reason for Referral Specialty Diagnoses / Procedures Referred By Nathaniel patel Referred To Contact Endocrinology Diagnoses Hypertension, unspecified type Procedures CONSULT TO ENDOCRINOLOGY OFFICE/OUTPATIENT [facility] 60-74 MINUTES Lisandra Cid, FILM COATER.DIRECTOR HOME HEALTH [address] [place] [address] Referral ID Status Reason Start Date Expiration Date Visits Requested Visits Authorized [id number] Authorized PCP Requested Referral 05/10/2022 05/10/2023 1 1 Additional Source Comments INFORMATION SOURCE (unrecogn ized section and content) DATE CREATED AUTHOR AUTHOR'S ORGANIZ ATION 10/25/2019 [facility] DATE CREATED AUTHOR AUTHOR'S ORGANIZ ATION 08/10/2022 [facility] DATE CREATED AUTHOR AUTHOR'S ORGANIZ ATION 04/23/[address] [facility] Source Comments (unrecognize d section and content) In the event this informatio n is protected by the Federal Confidentiality of Alcohol and Drug Abuse Patient Records regulations: The Federal rules restrict any use of the information to criminally investigate or prosecute any alcohol or drug abuse patient.[facility] the event this information is protected by the Federal Confidentiality of Alcohol and Drug Abuse Patient Records regulations: The Federal rules restrict any use of the information to criminally investigate or prosecute any alcohol or drug abuse patient.[facility] the event this information is protected by the Federal Confidentiality of Alcohol and Drug Abuse Patient Records regulations: The Federal rules restrict any use of the information to criminally investigate or prosecute any alcohol or drug abuse patient.[facility] the event this information is protected by the Federal Confidentiality of Alcohol and Drug Abuse Patient Records regulations: The Federal rules restrict any use of the information to criminally investigate or prosecute any alcohol or drug abuse patient.[facility] the event this information is protected by the Federal Confidentiality of Alcohol and Drug Abuse Patient Records regulations: The Federal rules restrict any use of the information to criminally investigate or prosecute any alcohol or drug abuse patient.[facility] the event this information is protected by the Federal Confidentiality of Alcohol and Drug Abuse Patient Records regulations: The Federal rules restrict any use of the information to criminally investigate or prosecute any alcohol or drug abuse patient.[facility] the event this information is protected by the Federal Confidentiality of Alcohol and Drug Abuse Patient Records regulations: The Federal rules restrict any use of the information to criminally investigate or prosecute any alcohol or drug abuse patient.[facility] the event this information is protected by the Federal Confidentiality of Alcohol and Drug Abuse Patient Records regulations: The Federal rules restrict any use of the information to criminally investigate or prosecute any alcohol or drug abuse patient.[facility] the event this information is protected by the Federal Confidentiality of Alcohol and Drug Abuse Patient Records regulations: The Federal rules restrict any use of the information to criminally investigate or prosecute any alcohol or drug abuse patient.[facility] the event this information is protected by the Federal Confidentiality of Alcohol and Drug Abuse Patient Records regulations: The Federal rules restrict any use of the information to criminally investigate or prosecute any alcohol or drug abuse patient.[facility] the event this information is protected by the Federal Confidentiality of Alcohol and Drug Abuse Patient Records regulations: The Federal rules restrict any use of the information to criminally investigate or prosecute any alcohol or drug abuse patient.[facility] Hospital[facility] the event this information is protected by the Federal Confidentiality of Alcohol and Drug Abuse Patient Records regulations: The Federal rules restrict any use of the information to criminally investigate or prosecute any alcohol or drug abuse patient.[facility] HospitalIn the event this information is protected by the Federal Confidentiality of Alcohol and Drug Abuse Patient Records regulations: The Federal rules restrict any use of the information to criminally investigate or prosecute any alcohol or drug abuse patient.[facility] Hospital[facility] the event this information is protected by the Federal Confidentiality of Alcohol and Drug Abuse Patient Records regulations: The Federal rules restrict any use of the information to criminally investigate or prosecute any alcohol or drug abuse patient.[facility] HospitalIn the event this information is protected by the Federal Confidentiality of Alcohol and Drug Abuse Patient Records regulations: The Federal rules restrict any use of the information to criminally investigate or prosecute any alcohol or drug abuse patient.[facility] HospitalIn the event this information is protected by the Federal Confidentiality of Alcohol and Drug Abuse Patient Records regulations: The Federal rules restrict any use of the information to criminally investigate or prosecute any alcohol or drug abuse patient.[facility] HospitalIn the event this information is protected by the Federal Confidentiality of Alcohol and Drug Abuse Patient Records regulations: The Federal rules restrict any use of the information to criminally investigate or prosecute any alcohol or drug abuse patient.[facility] HospitalIn the event this information is protected by the Federal Confidentiality of Alcohol and Drug Abuse Patient Records regulations: The Federal rules restrict any use of the information to criminally investigate or prosecute any alcohol or drug abuse patient.[facility] HospitalIn the event this information is protected by the Federal Confidentiality of Alcohol and Drug Abuse Patient Records regulations: The Federal rules restrict any use of the information to criminally investigate or prosecute any alcohol or drug abuse patient.[facility] HospitalIn the event this information is protected by the Federal Confidentiality of Alcohol and Drug Abuse Patient Records regulations: The Federal rules restrict any use of the information to criminally investigate or prosecute any alcohol or drug abuse patient.[facility] HospitalIn the event this information is protected by the Federal Confidentiality of Alcohol and Drug Abuse Patient Records regulations: The Federal rules restrict any use of the information to criminally investigate or prosecute any alcohol or drug abuse patient.[facility] HospitalIn the event this information is protected by the Federal Confidentiality of Alcohol and Drug Abuse Patient Records regulations: The Federal rules restrict any use of the information to criminally investigate or prosecute any alcohol or drug abuse patient.[facility] HospitalIn the event this information is protected by the Federal Confidentiality of Alcohol and Drug Abuse Patient Records regulations: The Federal rules restrict any use of the information to criminally investigate or prosecute any alcohol or drug abuse patient.[facility] HospitalIn the event this information is protected by the Federal Confidentiality of Alcohol and Drug Abuse Patient Records regulations: The Federal rules restrict any use of the information to criminally investigate or prosecute any alcohol or drug abuse patient.[facility] HospitalIn the event this information is protected by the Federal Confidentiality of Alcohol and Drug Abuse Patient Records regulations: The Federal rules restrict any use of the information to criminally investigate or prosecute any alcohol or drug abuse patient.[facility] HospitalIn the event this information is protected by the Federal Confidentiality of Alcohol and Drug Abuse Patient Records regulations: The Federal rules restrict any use of the information to criminally investigate or prosecute any alcohol or drug abuse patient.[facility] Care Teams (unrecognized sec tion and content) Lead Business Analyst Relationship Specialty Start Date End Date Myriam Camargo MD [address] [place] [address] PCP - General Family Practice 05/22/13 Lead Business Analyst Relationship Specialty Start Date End Date yMriam Camargo MD [address] [place] [address] PCP - General Family Practice 05/22/13 Lead Business Analyst Relationship Specialty Start Date End Date Myriam Camargo MD [address] [place] [address] PCP - General Family Practice 05/22/13 Lead Business Analyst Relationship Specialty Start Date End Date Myriam Camargo MD [address] [place] [address] PCP - General Family Practice 05/22/13 Lead Business Analyst Relationship Specialty Start Date End Date Myriam Camargo MD [address] [place] [address] PCP - General Family Practice 05/22/13 Lead Business Analyst Relationship Specialty Start Date End Date Myriam Camargo MD [address] [place] [address] PCP - General Family Medicine 05/22/13 Lead Business Analyst Relationship Specialty Start Date End Date Myriam Camargo MD [facility] [place] [address] PCP - General Family Medicine 05/22/13 Lead Business Analyst Relationship Specialty Start Date End Date Myriam Camargo MD [facility] [place] [address] PCP - General Family Medicine 05/22/13 Lead Business Analyst Relationship Specialty Start Date End Date Myriam Camargo MD [address] [place] [address] PCP - General Family Medicine 05/22/13 Lead Business Analyst Relationship Specialty Start Date End Date Myriam Camargo MD [address] [place] [address] PCP - General Family Medicine 05/22/13 Lead Business Analyst Relationship Specialty Start Date End Date Myriam Camargo MD [facility] [place] [address] PCP - General Family Medicine 05/22/13 Lead Business Analyst Relationship Specialty Start Date End Date Myriam Camargo MD [facility] [place] [address] PCP - General Family Medicine 05/22/13 Lead Business Analyst Relationship Specialty Start Date End Date Myriam Camargo MD [facility] [place] [address] PCP - General Family Medicine 05/22/13 Lead Business Analyst Relationship Specialty Start Date End Date Myriam Camargo MD [facility] [place] [address] PCP - General Family Medicine 05/22/13 Lead Business Analyst Relationship Specialty Start Date End Date Myriam Camargo MD [address] [place] [id number] PCP - General Family Medicine 05/22/13 Lead Business Analyst Relationship Specialty Start Date End Date Myriam Camargo MD [address] [place] [id number] PCP - General Family Medicine 05/22/13 Lead Business Analyst Relationship Specialty Start Date End Date Myriam Camargo MD [address] [place] [address] PCP - General Family Medicine 05/22/13 Lead Business Analyst Relationship Specialty Start Date End Date Myriam Camargo MD [address] [place] [id number] PCP - General Family Medicine 05/22/13 Lead Business Analyst Relationship Specialty Start Date End Date Myriam Camargo MD [address] [place] [id number] PCP - General Family Medicine 05/22/13 Reason for Visit (unrecogniz ed section and content) Reason Comments Yearly Exam Reason Comments [facility] Lab Results Reason Comments Follow Up Reason Comments Refill Request Reason Onset Date Comments Refill Request 04/25/2022 Reason Comments Follow Up Reason Comments Initial Consult Specialty Diagnoses / Procedures Referred By Contmayra t Referred To Contact Endocrinology Diagnoses Hypertension, unspecified type Procedures CONSULT TO ENDOCRINOLOGY OFFICE/OUTPATIENT NEW HIGH MDM 60-74 MINUTES Lisandra Cid, FILM COATER.DIRECTOR HOME HEALTH [address] [place] [address] Referral ID Status Reason Start Date Expiration Date V isits Requested Visits Authorized [id number] Closed PCP Requested Referral 05/10/2022 05/10/2023 1 1 Reason Comments Follow Up B/p check Reason Comments nurse visit Bp check Reason Comments Forms FOR RECORDS PERTAINING TO PATIENTS WHO ARE OR HAVE BEEN ENROLLED IN A CHEMICAL DEPENDENCY/SUBSTANCEABUSE PROGRAM, SOME INFORMATION MAY BE OMITTED. This clinical summary was aggregated from multiple sources. Caution should be exercised in using it in the provision of clinical care. This summary normalizes information from multiple sources, and as a consequence, information in this document may materially change the coding, format and clinical context of patient data. In addition, data may be omitted in some cases. CLINICAL DECISIONS SHOULD BE BASED ON THE PRIMARY CLINICAL RECORDS. [employer] provides no warranty or guarantee of the accuracy or completeness of information in this document.
[2023-06-14 08:04] LABS: hCG Titer Quant., Serum 9 mIU/mL (1-3)
== END | disposition home or self-care (01) ==
LOC: LAB 07:18
PROVIDERS: Referring Provider Obstetrics & Gynecology; Visit Provider Obstetrics & Gynecology
DX: N92.0 Excessive and frequent menstruation with regular cycle (principal)
CPT/HCPCS: 36415; 84702

== ENCOUNTER → 2023-06-16 | Outpatient (CLI) | payer OTHER, SELFPAY ==
--- OUTSIDE RECORDS SUMMARY | 2023-06-16 10:41 | XMS RPT_ITS | CCD ---
Author Name Unknown Address [address] [place] [address] Organization [facility] Care Team Providers Care Wood Box Maker Name Role Phone Darrell Vick Unavailable Unavailable [...] LISANDRA CID Attending MYRIAM Amanda [facility] e Allergies Allergy Classification Reported Allergen(s) Allergy Type Date of Onset Reaction(s) Facility (20 sources) Seasonal allergy; Translations: [SEASONAL ALLERGIES] Allergy to substance Other: See Comments [facility] Medications Completed/Discontinued Medications Medication Drug Class(es) [...] (1 source) Patient encounter status; Translations: [Other terminal gauger (current) drug therapy] 04-01-2023 Episodic Other liver [...] 72 mm[Hg] Myriam Camargo MD Work Phone: [facility] 04-01-2023 12:58-0400 Heart rate 52 /min Myriam Daniels Work Phone: [facility] 04-01-2023 12:58-0400 Systolic blood pressure 123 mm[Hg] Myriam Camargo MD Work Phone: [facility] 04-01-2023 12:55-0400 Body height 164.2 cm Myriam Daniels Work Phone: [facility] 04-01-2023 12:55-0400 Body temperature 98.01 [degF] Myriam Daniels Work Phone: [facility] 04-01-2023 12:55-0400 Body weight 79.65 kg Myriam Daniels Work Phone: [facility] 04-01-2023 12:55-0400 Respiratory rate 16 /min Myriam Daniels Work Phone: [facility] 04-01-2023 12:55-0400 SaO2% (BldA) [Mass fraction] 100 % Myriam Camargo MD Work Phone: [facility] 11-08-2022 15:39-0400 Diastolic blood pressure 78 mm[Hg] Myriam Camargo MD Work Phone: [facility] 11-08-2022 15:39-0400 Heart rate 63 /min Myriam Daniels Work Phone: [facility] 11-08-2022 15:39-0400 Systolic blood pressure 119 mm[Hg] Myriam Camrago MD Work Phone: [facility] 11-08-2022 15:35-0400 Body height 162.6 cm Myriam Daniels Work Phone: [facility] 11-08-2022 15:35-0400 Body temperature 98.49 [degF] Myriam Daniels Work Phone: [facility] 11-08-2022 15:35-0400 Body weight 77.11 kg Myriam Daniels Work Phone: [facility] 11-08-2022 15:35-0400 Respiratory rate 16 /min Myriam Daniels Work Phone: [facility] 11-08-2022 15:35-0400 SaO2% (BldA) [Mass fraction] 99 % Myriam Camargo MD Work Phone: [facility] 07-03-2022 18:44-0500 Diastolic blood pressure 66 mm[Hg] Lisandra Gunter APRN.CNP Work Phone: [facility] 07-03-2022 18:44-0500 Systolic blood pressure 142 mm[Hg] Lisandra Gunter ROPEMAN.BEHAVIORAL HEALTH TECHNICIAN Work Phone: [facility] 07-03-2022 18:40-0500 Body temperature 96.91 [degF] Lisandra Gunter ROPEMAN.BEHAVIORAL HEALTH TECHNICIAN Work Phone: [facility] 07-03-2022 18:40-0500 Body weight 75.84 kg Lisandra Reeseethan Gunter ROPEMAN.BEHAVIORAL HEALTH TECHNICIAN Work Phone: [facility] 07-03-2022 18:40-0500 Heart rate 65 /min Lisandra Gunter ROPEMAN.BEHAVIORAL HEALTH TECHNICIAN Work Phone: [facility] 07-03-2022 18:40-0500 Respiratory rate 16 /min Lisandra Gunter ROPEMAN.BEHAVIORAL HEALTH TECHNICIAN Work Phone: [facility] 07-03-2022 18:40-0500 SaO2% (BldA) [Mass fraction] 100 % Lisandra Reeseethan Gunter ROPEMAN.BEHAVIORAL HEALTH TECHNICIAN Work Phone: [facility] 06-15-2022 15:21-0500 Body height 162.6 cm Pedro Wheeler i, MD Work Phone: [facility] 06-15-2022 15:21-0500 Body weight 73.48 kg Pedro Wheeler i, MD Work Phone: [facility] 06-15-2022 15:21-0500 Diastolic blood pressure 80 mm[Hg] Pedro Carrera MD Work Phone: [facility] 06-15-2022 15:21-0500 Heart rate 88 /min Pedro Wheeler i, MD Work Phone: [facility] 06-15-2022 15:21-0500 SaO2% (BldA) [Mass fraction] 98 % Pedro Carrera MD Work Phone: [facility] 06-15-2022 15:21-0500 Systolic blood pressure 138 mm[Hg] Pedro Carrera MD Work Phone: [facility] 05-10-2022 08:19-0500 Diastolic blood pressure 70 mm[Hg] Lisandra Gunter ROPEMAN.BEHAVIORAL HEALTH TECHNICIAN Work Phone: [facility] 05-10-2022 08:19-0500 Systolic blood pressure 122 mm[Hg] Lisandra Gunter ROPEMAN.BEHAVIORAL HEALTH TECHNICIAN Work Phone: [facility] 05-10-2022 08:05-0500 Body temperature 98.71 [degF] Lisandra Gunter ROPEMAN.BEHAVIORAL HEALTH TECHNICIAN Work Phone: [facility] 05-10-2022 08:05-0500 Body weight 72.39 kg Lisandra Gunter ROPEMAN.BEHAVIORAL HEALTH TECHNICIAN Work Phone: [facility] 05-10-2022 08:05-0500 Heart rate 79 /min Lisandra Gunter ROPEMAN.BEHAVIORAL HEALTH TECHNICIAN Work Phone: [facility] 05-10-2022 08:05-0500 Respiratory rate 16 /min Lisandra Gunter ROPEMAN.BEHAVIORAL HEALTH TECHNICIAN Work Phone: [facility] 05-10-2022 08:05-0500 SaO2% (BldA) [Mass fraction] 100 % Lisandra Gunter APRN.BEHAVIORAL HEALTH TECHNICIAN Work Phone: [facility] 03-20-2022 08:18-0400 Diastolic blood pressure 78 mm[Hg] Lisandra Gunter ROPEMAN.BEHAVIORAL HEALTH TECHNICIAN Work Phone: [facility] 03-20-2022 08:18-0400 Systolic blood pressure 130 mm[Hg] Lisandra Gunter ROPEMAN.BEHAVIORAL HEALTH TECHNICIAN Work Phone: [facility] 03-20-2022 08:07-0400 Body temperature 98.71 [degF] Lisandra Gunter ROPEMAN.BEHAVIORAL HEALTH TECHNICIAN Work Phone: [facility] 03-20-2022 08:07-0400 Body weight 70.76 kg Lisandra Gunter APRN.BEHAVIORAL HEALTH TECHNICIAN Work Phone: [facility] 03-20-2022 08:07-0400 Heart rate 64 /min Lisandra Reeseethan Gunter ROPEMAN.BEHAVIORAL HEALTH TECHNICIAN Work Phone: [facility] 03-20-2022 08:07-0400 Respiratory rate 16 /min Lisandra Reeseethan Gunter ROPEMAN.BEHAVIORAL HEALTH TECHNICIAN Work Phone: [facility] 03-20-2022 08:07-0400 SaO2% (BldA) [Mass fraction] 100 % Lisandra Reeseethan Gunter ROPEMAN.BEHAVIORAL HEALTH TECHNICIAN Work Phone: [facility] 01-18-2022 14:00-0400 Body height 162.6 cm Myriam Daniels Work Phone: [facility] 01-18-2022 14:00-0400 Body temperature 98.01 [degF] Myriam Daniels Work Phone: [facility] 01-18-2022 14:00-0400 Body weight 70.94 kg Myriam Daniels Work Phone: [facility] 01-18-2022 14:00-0400 Diastolic blood pressure 74 mm[Hg] Myriam Camargo MD Work Phone: [facility] 01-18-2022 14:00-0400 Heart rate 55 /min Myriam Daniels Work Phone: [facility] 01-18-2022 14:00-0400 Respiratory rate 16 /min Myriam Daniels Work Phone: [facility] 01-18-2022 14:00-0400 SaO2% (BldA) [Mass fraction] 100 % Myriam Camargo MD Work Phone: [facility] 01-18-2022 14:00-0400 Systolic blood pressure 132 mm[Hg] Myriam Camargo MD Work Phone: [facility] Encounters Encounter Date Encounter Type Care [...] [place] - 66 YRS IM Lisandra Gunter APRN.BEHAVIORAL HEALTH TECHNICIAN Work Phone: Start: 01-15-2022 Adult depression scr eening assessment Myriam Camargo MD Work Phone: Start: 10-11-2020 Adult depression scr eening assessment Myriam Camargo MD Work Phone: Plan of Treatment Date Care Activity Detail Author Start: 04-19-2031 Urine microalbumin profile [facility] Start: 07-26-2026 PAP TESTING PAP TESTING [facility] Start: 07-26-2024 PAP TESTING PAP TESTING [facility] Start: 04-01-2024 Annual PCP Team 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 Quality 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 laya Disease Visit Annual PCP Team Chronic Disease Visit [facility] Start: 04-01-2024 BP Controlled (<130/80) BP Controlle d (<130/80) [facility] Start: 04-01-2024 Covid-19 Vaccine ( season) Covid-19 Vaccine ( season) [facility] Immunizations Immunization Date Immunization Notes Care Provider Fa cility 04-01-2023 influenza, injectabl e, quadrivalent, contains preservative Myriam Camargo MD Work Phone: [facility] 03-20-2022 influenza, injectabl e, quadrivalent, contains preservative Lisandra Gunter APRN.BEHAVIORAL HEALTH TECHNICIAN Work Phone: [facility] 03-20-2022 influenza virus vacc ine, unspecified formulation Lisandra Gunter APRN.BEHAVIORAL HEALTH TECHNICIAN Work Phone: [facility] 04-19-2021 diphtheria, tetanus toxoids and acellular pertussis vaccine, unspecified formulation Myriam Camargo MD Work Phone: [facility] Work Phone: 03-31-2019 influenza, injectabl e, quadrivalent, contains preservative Myriam Camargo MD Work Phone: [facility] 03-06-2018 influenza, injectabl e, quadrivalent, contains preservative Myriam Camargo MD Work Phone: [facility] 04-12-2017 influenza, injectabl e, quadrivalent, contains preservative Myriam Camargo MD Work Phone: [facility] 04-25-2016 influenza, injectabl e, quadrivalent, contains preservative Myriam Camargo MD Work Phone: [facility] 10-21-2013 hepatitis A vaccine, adult dosage Myriam Camargo MD Work Phone: [facility] 11-16-2010 hepatitis A vaccine, pediatric/adolescent dosage, 2 dose schedule Myriam Camargo MD Work Phone: [facility] 11-16-2010 hepatitis A vaccine, unspecified formulation Myriam Camargo MD Work Phone: [facility] 11-16-2010 meningococcal polysaccharide (groups A, C, Y and W-135) diphtheria toxoid conjugate vaccine (MCV4P) Myriam Camargo MD Work Phone: [facility] 11-16-2010 meningococcal polysaccharide vaccine (MPSV4) Myriam Camargo MD Work Phone: [facility] 11-16-2010 tetanus toxoid, redu gema diphtheria toxoid, and acellular pertussis vaccine, adsorbed Myriam Camargo MD Work Phone: [facility] 05-17-2009 novel influenza-H1N1 -09, preservative-free, injectable Myriam Camargo MD Work Phone: [facility] 09-29-1997 diphtheria, tetanus toxoids and acellular pertussis vaccine, unspecified formulation Myriam Camargo MD Work Phone: [facility] 09-29-1997 measles, mumps and rubella virus vaccine Myriam Camargo MD Work Phone: [facility] 09-29-1997 poliovirus vaccine, unspecified formulation Myriam Camargo MD Work Phone: [facility] 06-14-1997 hepatitis B vaccine, pediatric or pediatric/adolescent dosage Myriam Camargo MD Work Phone: [facility] 12-07-1996 hepatitis B vaccine, adult dosage Myriam Camargo MD Work Phone: [facility] 12-07-1996 hepatitis B vaccine, pediatric or pediatric/adolescent dosage Myriam Camargo MD Work Phone: [facility] 10-30-1996 hepatitis B vaccine, adult dosage Myriam Camargo MD Work Phone: [facility] 10-30-1996 hepatitis B vaccine, pediatric or pediatric/adolescent dosage Myriam Camargo MD Work Phone: [facility] 08-24-1993 diphtheria, tetanus toxoids and acellular pertussis vaccine, unspecified formulation Myriam Camargo MD Work Phone: [facility] 08-24-1993 haemophilus influenz ae type b vaccine, PRP-T conjugate Myriam Camargo MD Work Phone: [facility] 08-24-1993 measles, mumps and rubella virus vaccine Myriam Camargo MD Work Phone: [facility] 08-24-1993 trivalent poliovirus vaccine, live, oral Myriam Camargo MD Work Phone: [facility] 1992 diphtheria, tetanus toxoids and pertussis vaccine Myriam Camargo MD Work Phone: [facility] 1992 haemophilus influenz ae type b vaccine, PRP-T conjugate Myriam Camargo MD Work Phone: [facility] 1992 diphtheria, tetanus toxoids and pertussis vaccine Myriam Camargo MD Work Phone: [facility] 1992 haemophilus influenz ae type b vaccine, PRP-T conjugate Myriam Camargo MD Work Phone: [facility] 1992 trivalent poliovirus vaccine, live, oral Myriam Camargo MD Work Phone: [facility] 1992 diphtheria, tetanus toxoids and pertussis vaccine Myriam Camargo MD Work Phone: [facility] 1992 haemophilus influenz ae type b vaccine, PRP-T conjugate Myriam Camargo MD Work Phone: [facility] 1992 trivalent poliovirus vaccine, live, oral Myriam Camargo MD Work Phone: [facility] Payers Date Payer Category Payer Private Health Insurance LITZYCULLEN BOYCEHina RODRIGEZ [id number] 2020-Present [phone] [facility] [id number] [place] [address] Open Access [id number] 2020 Private Health Insurance [id number] 2020 Private Health Insurance [id number] Social History Date Type Detail Facility Start: 06-18-2013 End: 03-20-2022 Tobacco smoking status NHIS Never smoked tobacco [facility] Start: 06-18-2013 End: 03-20-2022 Tobacco use and exposure Smokeless tobacco non-user [facility] Start: 06-27-2021 End: 04-01-2023 Alcohol intake Current drinker of alcohol (finding) [facility] Start: 10-11-2020 End: 05-09-2022 History SDOH Alcohol Frequency 4 [facility] Start: 10-11-2020 End: 05-09-2022 History SDOH Alcohol Std Drinks 1 [facility] Start: 06-18-2013 History SDOH Alcohol Comment rarely [facility] Start: 10-11-2020 End: 05-09-2022 History SDOH Social Connections Phone 5 [facility] Start: 10-11-2020 End: 05-09-2022 History SDOH Social Connections Jain 2 [facility] Start: 10-11-2020 End: 10-11-2021 History SDOH Social Connections Meetings 98 [facility] Start: 10-11-2020 End: 05-09-2022 History SDOH Social Connections Living 3 [facility] Start: 08-13-2019 Education 17 [facility] Start: 1990 Sex Assigned At Not on file C [facility] Start: 10-01-2021 End: 05-10-2022 Exposure to SARS-CoV-2 (event) Not sure [facility] Start: 05-15-2020 End: 05-08-2022 History of Social function [facility] Start: 05-15-2020 End: 05-08-2022 Social connection and isolation panel [facility] Do you belong to any clubs or organizations such as rastafari groups, unions, fraternal or athletic groups, or school groups? No [facility] Are you now , , , , never or living with a partner? [facility] How often to you hav e a drink containing alcohol? 2-3 time sa week [facility] How many standard dr inks containing alcohol do you have on a typical day? 1 or 2 [facility] How often do you hav e 6 or more drinks on 1 occasion? Never [facility] How hard is it for y ou to pay for the very basics like food, housing, medical care, and heating Not hard at all [facility] Do you feel stress - tense, restless, nervous, or anxious, or unable to sleep at night because your mind is troubled all the time - these days [OSQ] Not at all [facility] (I/We) worried wheth er (my/our) food [...] Dr. Amelia Noel documented in this encounter [facility] 04-01-2023 Note HNO ID: [id number] Author: Myriam Camargo MD Service: ? Author [...] (FLONASE) 50 mcg/actuation nasal spray Use 1 Butler in each nostril daily at bedtime. Use as directed. (Patient taking differently: Use 1 Butler in each nostril daily at bedtime. Use as directed. PRN) No current facility-administered medications for this visit. 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 [facility] 04-01-2023 Note HNO ID: [id number] Author: Cielo An MA Service: ? Author Type: Company Doctor Type: Progress Notes Filed: 04/01/2023 1:40 PM [...] Foot and Retinal Eye Exam not Overdue [facility] 04-01-2023 History of Present illness Narrative Batsheva [...] (FLONASE) 50 mcg/actuation nasal spray Use 1 Butler in each nostril daily at bedtime. Use as directed. (Patient taking differently: Use 1 Butler in each nostril daily at bedtime. Use as directed. PRN) No current facility-administered medications for this visit. 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 The lab is located in [facility] on the first floor. There is a registration window at the lab, available 7 am to 3 pm Saturday - Saturday. If registration is unavailable at the lab, you may register at the patient registration office near the front lobby of the hospital. SCHEDULING A LAB APPOINTMENT: Laboratory appointments are recommended.Walk ins are still accepted. Call [phone] or schedule via [employer] scheduling ticket. ROUTINE LAB ORDERS 60 days [...] REFILL REQUESTS Request prescription refills through your [employer] account or contact your Pharmacy. My Chart Schedule My Appointment enables you to view your established primary care provider's open schedule and book an appointment online in real-time. This feature is available in internal medicine, family medicine, or pediatrics at any of our [facility] locations and main campus. documented in this encounter [facility] 04-01-2023 Nurse Note Patient presents with: Yearly Exam documented in this encounter [facility] 02-28-2023 Miscellaneous Notes Patient's request for medication is as follows: Requested Prescriptions Signed Prescriptions Disp Refills labetalol (TRANDATE) 200 mg tablet 60 tablet 1 Sig: Take 1 tablet by mouth twice daily. Prescription(s) as above. Please process accordingly. Lisandra Gunter APRN.BEHAVIORAL HEALTH TECHNICIAN documented in this encounter [facility] 01-22-2023 Miscellaneous Notes Patient's request for medication is as follows: Requested Prescriptions Signed Prescriptions Disp Refills labetalol (TRANDATE) 100 mg tablet 60 tablet 1 Sig: Take 1 tablet by mouth twice daily. Prescription(s) as above. Please process accordingly. Lisandra Gunter APRN.BEHAVIORAL HEALTH TECHNICIAN documented in this encounter [facility] 11-08-2022 Note HNO ID: [id number] Author: Myriam Camargo MD Service: ? Author [...] (FLONASE) 50 mcg/actuation nasal spray Use 1 Butler in each nostril daily at bedtime. Use as directed. (Patient taking differently: Use 1 Butler in each nostril daily at bedtime. Use [...] SERTRALINE 25 MG TABLET Myriam Camargo MD [facility] 11-08-2022 Note HNO ID: [id number] Author: Antonella Carter MA Service: ? Author Type: Company Doctor Type: Progress Notes Filed: 11/08/2022 4:11 PM Note Text: HEPATITIS C SCREENING Never done HIV SCREENING Never done BP CONTROLLED (<130/80) Never done HPV TESTING due on 2022 [facility] 11-08-2022 History of Present illness Narrative Batsheva [...] (FLONASE) 50 mcg/actuation nasal spray Use 1 Butler in each nostril daily at bedtime. Use as directed. (Patient taking differently: Use 1 Butler in each nostril daily at bedtime. Use [...] due on 2022 documented in this encounter [facility] 09-03-2022 Miscellaneous Notes FYI documented in this encounter [facility] 08-10-2022 Miscellaneous Notes Left message for [...] Protocols used: No Contact or Duplicate Contact [id number] Home machine running slightly higher than office. [...] review and advise documented in this encounter [facility] 08-09-2022 Note HNO ID: [id number] Author: Marifer Brunner MA Service: ? Author Type: Company Doctor Type: Progress Notes Filed: 08/09/2022 2:30 PM Note Text: Patient is here today for a bp she stated she has been checking her bp at home with a base reading of 143/86 In office today her bp on our machine was 137/77 I tested her machine and got 142/76 please review and advise [facility] 07-03-2022 Note HNO ID: [id number] Author: Lisandra Gunter APRN.FRANKLIN Service: ? Author [...] 530.81, ICD10: K21.9 Improved Lisandra Gunter APRN.FRANKLIN [facility] 07-03-2022 Note HNO ID: [id number] Author: Mandy Mendez Ma Service: ? Author Type: ? Type: Progress Notes Filed: 07/03/2022 6:58 PM Note Text: HEPATITIS C SCREENING Never done HIV SCREENING Never done BP CONTROLLED (<130/80) Never done COVID-19 VACCINE(4 - Booster for Moderna series) due on 08/25/2021 HPV TESTING due on 2022 DEPRESSION ASSESSMENT due on 06/10/2022 [facility] 07-03-2022 History of Present illness Narrative Patient [...] ICD9: 530.81, ICD10: K21.9 Improved Lisandra Gunter APRN.BEHAVIORAL HEALTH TECHNICIAN HEPATITIS C SCREENING Never done HIV SCREENING Never done BP CONTROLLED (<130/80) Never done COVID-19 VACCINE(4 - Booster for Moderna series) due on 08/25/2021 HPV TESTING due on 2022 DEPRESSION ASSESSMENT due on 06/10/2022 documented in this encounter [facility] 06-19-2022 Miscellaneous Notes See other encounter [...] requesting new RX from provider Ashely Matthews [facility] documented in this encounter [facility] 06-19-2022 Miscellaneous Notes See refill encounter documented in this encounter [facility] 06-19-2022 Miscellaneous Notes Spoke with patient [...] Grider LPN, PERRY documented in this encounter [facility] 06-15-2022 Note HNO ID: [id number] Author: Pedro Carrera MD Service: ? Author Type: Physician Type: Progress Notes Filed: 06/15/2022 4:05 PM Note Text: [facility] Initial Clinic Visit Note NAME: Batsheva Crooks PCP: Myriam Camargo MD Requesting Provider: Lisandra Gunter [id number] [id number] My final recommendations will be communicated back to the requesting physician by way of shared medical record or letter via [place] mail. Chief Complaint: hypertension History of Present Illness: Batsheva Crooks is a 32 year old female presenting with chronic hx of idiopathic primary HTN. She is here to inquire whether there is an endocrinology etiology to the HTN. 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 She is [...] (FLONASE) 50 mcg/actuation nasal spray Use 1 Butler in each nostril daily at bedtime. Use as directed. (Patient taking differently: Use 1 Butler in each nostril daily at bedtime. Use [...] hx of gestatio (more content not included)... [facility] 06-15-2022 History of Present illness Narrative [facility] Initial Clinic Visit Note NAME: Batsheva Crooks PCP: Myriam Camargo MD Requesting Provider: Lisandra Gunter [id number] [facility] [id number] My final recommendations will be communicated back to the requesting physician by way of shared medical record or letter via US mail. Chief Complaint: hypertension History of Present Illness: Batsheva Crooks is a 32 year old female presenting with chronic hx of idiopathic primary HTN. She is here to inquire whether there is an endocrinology etiology to the HTN. 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 She is [...] (FLONASE) 50 mcg/actuation nasal spray Use 1 Butler in each nostril daily at bedtime. Use as directed. (Patient taking differently: Use 1 Butler in each nostril daily at bedtime. Use [...] which included preparing to see the patient, [id number] patient care, completing clinical documentation, obtaining and/or reviewing separately obtained history, performing a medically appropriate examination, counseling and educating the patient/family/caregiver, and ordering medications, tests, or procedures. Pedro Carrera MD [facility] Endocrinology and Metabolism [facility] [phone] Medical Decision Making: Problems: Low: Stable chronic illness Data: Unique test result(s) reviewed: 3+ Unique test(s) ordered: 3+ Medical Decision Making Level: 3 - Low Answers submitted by the patient for this visit: Endocrine Review of Systems (Submitted on 06/14/2022) Blood Clots?: No Joint Pain or Stiffness: No documented in this encounter [facility] 05-21-2022 Note HNO ID: [id number] Author: VLADIMIR Colon Service: Radiology Author Type: Technologist Type: Progress [...] VLADIMIR Colon May 21, 2022 3:53 PM [facility] 05-21-2022 History of Present illness Narrative Radiology [...] 2022 3:53 PM documented in this encounter [facility] 05-10-2022 Note HNO ID: [id number] Author: Lisandra Gunter APRN.BEHAVIORAL HEALTH TECHNICIAN Service: ? Author Type: Nurse Practitioner Type: [...] (FLONASE) 50 mcg/actuation nasal spray Use 1 Butler in each nostril daily at bedtime. Use as directed. (Patient taking differently: Use 1 Butler in each nostril daily at bedtime. Use [...] UNIT-TRIMETHOPRIM 1 MG/ML EYE DROPS Lisandra Gunter, ROPEMAN.[facility] 05-10-2022 Influenza virus A and B RNA and SARS-CoV-2 (COVID-19) N gene panel VIKTOR+probe (Resp) COVID 19 RESULT: SARS-CoV-2 (Agent of COVID-19) Not Detected by RT-PCR or equivalent method. marco antonio [id number]_[id number] (TERRI)_EUA This test was developed and its performance characteristics determined by [facility]. This test has been authorized by FDA under an Emergency Use Authorization (EUA). This test has been validated in accordance with the FDA's Guidance Document Policy for Diagnostics Testing in Laboratories Certified to Perform High Complexity Testing under CLIA prior to Emergency use Authorization for Coronavirus Disease 2019 during the Public Health Emergency issued on August 08, 2019. Test performed by [facility], [facility], [address] [place] [address]. INFLUENZA A PCR: Negative for Influenza A by RT-PCR INFLUENZA B PCR: Negative for Influenza B by RT-PCR [facility] documented as of this encounter (statuses as of 04/01/2023) [facility] History of Past illness Narrative* Problem Noted Date Diagnosed Date Resolved Date Breakthrough bleeding on control pills 8 04/01/2023 documented as of this encounter (statuses as of 04/18/2023) [facility] note* Diagnosis Anxiety- Primary Anxiety state, unspecified Hypertension, essential Unspecified essential hypertension [facility] Diagnosis Special screening examination for viral disease- Primary Special screening examination for unspecified viral disease Hypertension, essential Unspecified essential hypertension Screening for HIV (human immunodeficiency virus) Special screening examination for other specified viral diseases [facility] Diagnosis Hypertension, essential Unspecified essential hypertension [facility] Diagnosis Routine medical exam- Primary Routine [...] Anxiety state, unspecified [facility] Diagnosis Anxiety Anxiety state, unspecified [facility] Diagnosis Hypertension, essential- Primary Unspecified essential hypertension Encounter for immunization Need for other specified prophylactic vaccination against single bacterial disease Anxiety Anxiety state, unspecified [facility] Diagnosis Anxiety Anxiety state, unspecified [facility] Diagnosis Anxiety Anxiety state, unspecified [facility] Diagnosis Hypertension, essential- Primary Unspecified essential hypertension Anxiety Anxiety state, unspecified Hypertension, unspecified type URI, acute Acute upper respiratory infections of unspecified site [facility] Diagnosis Hypertension, unspecified type- Primary Increased body mass index Other symptoms concerning nutrition, metabolism, and development [facility] Diagnosis Anxiety Anxiety state, unspecified [facility] Diagnosis Hypertension, essential- Primary Unspecified essential hypertension Elevated lipase Other nonspecific abnormal serum enzyme levels GERD without esophagitis Esophageal reflux documented in this encounter [facility] note* Diagnosis Hypertension, essential- Primary Unspecified essential hypertension Anxiety Anxiety state, unspecified documented in this encounter [facility] note* Diagnosis Hypertension, essential- Primary Unspecified essential hypertension documented in this encounter [facility] note* Diagnosis Hypertension, essential- Primary Unspecified essential hypertension documented in this encounter [facility] note* Diagnosis Routine medical exam- Primary Routine general medical examination at a health care facility Hypertension, essential Unspecified essential hypertension Encounter for immunization Need for other specified prophylactic vaccination against single bacterial disease Medication management Encounter for long-term (current) use of other medications documented in this encounter [facility] Summary Purpose Family History No Family [...] unspecified type Procedures CONSULT TO ENDOCRINOLOGY OFFICE/OUTPATIENT [facility] 60-74 MINUTES Lisandra Cid, ROPEMAN.BEHAVIORAL HEALTH TECHNICIAN [address] [place] [address] Referral ID Status Reason Start Date Expiration Date Visits Requested Visits Authorized [id number] Authorized PCP Requested Referral 05/10/2022 05/10/2023 1 1 Additional Source Comments INFORMATION SOURCE (unrecogn ized section and content) DATE CREATED AUTHOR AUTHOR'S ORGANIZ ATION 10/25/2019 [facility] DATE CREATED AUTHOR AUTHOR'S ORGANIZ ATION 08/10/2022 [facility] DATE CREATED AUTHOR AUTHOR'S ORGANIZ ATION 04/23/2023 [facility] Source Comments (unrecognize d section and content) In the event this informatio n is protected by the Federal Confidentiality of Alcohol and Drug Abuse Patient Records regulations: The Federal rules restrict any use of the information to criminally investigate or prosecute any alcohol or drug abuse patient.[facility] the event this information is protected by the Federal Confidentiality of Alcohol and Drug Abuse Patient Records regulations: The Federal rules restrict any use of the information to criminally investigate or prosecute any alcohol or drug abuse patient.[facility] the event this information is protected by the Federal Confidentiality of Alcohol and Drug Abuse Patient Records regulations: The Federal rules restrict any use of the information to criminally investigate or prosecute any alcohol or drug abuse patient.[facility] the event this information is protected by the Federal Confidentiality of Alcohol and Drug Abuse Patient Records regulations: The Federal rules restrict any use of the information to criminally investigate or prosecute any alcohol or drug abuse patient.[facility] the event this information is protected by the Federal Confidentiality of Alcohol and Drug Abuse Patient Records regulations: The Federal rules restrict any use of the information to criminally investigate or prosecute any alcohol or drug abuse patient.[facility] the event this information is protected by the Federal Confidentiality of Alcohol and Drug Abuse Patient Records regulations: The Federal rules restrict any use of the information to criminally investigate or prosecute any alcohol or drug abuse patient.[facility] the event this information is protected by the Federal Confidentiality of Alcohol and Drug Abuse Patient Records regulations: The Federal rules restrict any use of the information to criminally investigate or prosecute any alcohol or drug abuse patient.[facility] the event this information is protected by the Federal Confidentiality of Alcohol and Drug Abuse Patient Records regulations: The Federal rules restrict any use of the information to criminally investigate or prosecute any alcohol or drug abuse patient.[facility] the event this information is protected by the Federal Confidentiality of Alcohol and Drug Abuse Patient Records regulations: The Federal rules restrict any use of the information to criminally investigate or prosecute any alcohol or drug abuse patient.[facility] the event this information is protected by the Federal Confidentiality of Alcohol and Drug Abuse Patient Records regulations: The Federal rules restrict any use of the information to criminally investigate or prosecute any alcohol or drug abuse patient.[facility] the event this information is protected by the Federal Confidentiality of Alcohol and Drug Abuse Patient Records regulations: The Federal rules restrict any use of the information to criminally investigate or prosecute any alcohol or drug abuse patient.[facility] the event this information is protected by the Federal Confidentiality of Alcohol and Drug Abuse Patient Records regulations: The Federal rules restrict any use of the information to criminally investigate or prosecute any alcohol or drug abuse patient.[facility] the event this information is protected by the Federal Confidentiality of Alcohol and Drug Abuse Patient Records regulations: The Federal rules restrict any use of the information to criminally investigate or prosecute any alcohol or drug abuse patient.[facility] Hospital[facility] the event this information is protected by the Federal Confidentiality of Alcohol and Drug Abuse Patient Records regulations: The Federal rules restrict any use of the information to criminally investigate or prosecute any alcohol or drug abuse patient.[facility] HospitalIn the event this information is protected by the Federal Confidentiality of Alcohol and Drug Abuse Patient Records regulations: The Federal rules restrict any use of the information to criminally investigate or prosecute any alcohol or drug abuse patient.[facility] HospitalIn the event this information is protected by the Federal Confidentiality of Alcohol and Drug Abuse Patient Records regulations: The Federal rules restrict any use of the information to criminally investigate or prosecute any alcohol or drug abuse patient.[facility] HospitalIn the event this information is protected by the Federal Confidentiality of Alcohol and Drug Abuse Patient Records regulations: The Federal rules restrict any use of the information to criminally investigate or prosecute any alcohol or drug abuse patient.[facility] HospitalIn the event this information is protected by the Federal Confidentiality of Alcohol and Drug Abuse Patient Records regulations: The Federal rules restrict any use of the information to criminally investigate or prosecute any alcohol or drug abuse patient.[facility] HospitalIn the event this information is protected by the Federal Confidentiality of Alcohol and Drug Abuse Patient Records regulations: The Federal rules restrict any use of the information to criminally investigate or prosecute any alcohol or drug abuse patient.[facility] HospitalIn the event this information is protected by the Federal Confidentiality of Alcohol and Drug Abuse Patient Records regulations: The Federal rules restrict any use of the information to criminally investigate or prosecute any alcohol or drug abuse patient.[facility] HospitalIn the event this information is protected by the Federal Confidentiality of Alcohol and Drug Abuse Patient Records regulations: The Federal rules restrict any use of the information to criminally investigate or prosecute any alcohol or drug abuse patient.[facility] HospitalIn the event this information is protected by the Federal Confidentiality of Alcohol and Drug Abuse Patient Records regulations: The Federal rules restrict any use of the information to criminally investigate or prosecute any alcohol or drug abuse patient.[facility] HospitalIn the event this information is protected by the Federal Confidentiality of Alcohol and Drug Abuse Patient Records regulations: The Federal rules restrict any use of the information to criminally investigate or prosecute any alcohol or drug abuse patient.[facility] HospitalIn the event this information is protected by the Federal Confidentiality of Alcohol and Drug Abuse Patient Records regulations: The Federal rules restrict any use of the information to criminally investigate or prosecute any alcohol or drug abuse patient.[facility] HospitalIn the event this information is protected by the Federal Confidentiality of Alcohol and Drug Abuse Patient Records regulations: The Federal rules restrict any use of the information to criminally investigate or prosecute any alcohol or drug abuse patient.[facility] HospitalIn the event this information is protected by the Federal Confidentiality of Alcohol and Drug Abuse Patient Records regulations: The Federal rules restrict any use of the information to criminally investigate or prosecute any alcohol or drug abuse patient.[facility] Care Teams (unrecognized sec tion and content) Wood Box Maker Relationship Specialty Start Date End Date Myriam Camargo MD [address] [place] [address] PCP - General Family Practice 05/22/13 Wood Box Maker Relationship Specialty Start Date End Date Myriam Camargo MD [address] [place] [address] PCP - General Family Practice 05/22/13 Wood Box Maker Relationship Specialty Start Date End Date Myriam Camargo MD [address] [place] [address] PCP - General Family Practice 05/22/13 Wood Box Maker Relationship Specialty Start Date End Date Myriam Camargo MD [address] [place] [address] PCP - General Family Practice 05/22/13 Wood Box Maker Relationship Specialty Start Date End Date Myriam Camargo MD [address] [place] [address] PCP - General Family Practice 05/22/13 Wood Box Maker Relationship Specialty Start Date End Date Myriam Camargo MD [address] [place] [address] PCP - General Family Medicine 05/22/13 Wood Box Maker Relationship Specialty Start Date End Date Myriam Camargo MD [facility] [place] [address] PCP - General Family Medicine 05/22/13 Wood Box Maker Relationship Specialty Start Date End Date Myriam Camargo MD [facility] [place] [address] PCP - General Family Medicine 05/22/13 Wood Box Maker Relationship Specialty Start Date End Date Myriam Camargo MD [address] [place] [address] PCP - General Family Medicine 05/22/13 Wood Box Maker Relationship Specialty Start Date End Date Myriam Camargo MD [address] [place] [address] PCP - General Family Medicine 05/22/13 Wood Box Maker Relationship Specialty Start Date End Date Myriam Camargo MD [facility] [place] [address] PCP - General Family Medicine 05/22/13 Wood Box Maker Relationship Specialty Start Date End Date Myriam Camargo MD [facility] [place] [address] PCP - General Family Medicine 05/22/13 Wood Box Maker Relationship Specialty Start Date End Date Myriam Camargo MD [facility] [place] [address] PCP - General Family Medicine 05/22/13 Wood Box Maker Relationship Specialty Start Date End Date Myriam Camargo MD [facility] [place] [address] PCP - General Family Medicine 05/22/13 Wood Box Maker Relationship Specialty Start Date End Date Myriam Camargo MD [address] [place] [id number] PCP - General Family Medicine 05/22/13 Wood Box Maker Relationship Specialty Start Date End Date Myriam Camargo MD [address] [place] [id number] PCP - General Family Medicine 05/22/13 Wood Box Maker Relationship Specialty Start Date End Date Myriam Camargo MD [address] [place] [id number] PCP - General Family Medicine 05/22/13 Wood Box Maker Relationship Specialty Start Date End Date Myriam Camargo MD [address] [place] [address] PCP - General Family Medicine 05/22/13 Wood Box Maker Relationship Specialty Start Date End Date Myriam Camargo MD [address] [place] [id number] PCP - General Family Medicine 05/22/13 Reason for Visit (unrecogniz ed section and content) Reason Comments Yearly Exam Reason Comments [facility] Results Reason Comments Follow Up Reason Comments Refill Request Reason Onset Date Comments Refill Request 04/25/2022 Reason Comments Follow Up Reason Comments Initial Consult Specialty Diagnoses / Procedures Referred By Contmayra t Referred To Contact Endocrinology Diagnoses Hypertension, unspecified type Procedures CONSULT TO ENDOCRINOLOGY OFFICE/OUTPATIENT NEW HIGH MDM 60-74 MINUTES Lisandra Cid, ROPEMAN.BEHAVIORAL HEALTH TECHNICIAN [address] [place] [address] Referral ID Status Reason Start Date Expiration Date V isits Requested Visits Authorized [id number] Closed PCP Requested Referral 05/10/2022 05/10/2023 1 [...] BE BASED ON THE PRIMARY CLINICAL RECORDS. [employer] provides no warranty or guarantee of the accuracy or completeness of information in this document.
[2023-06-16 11:38] LABS: hCG Titer Quant., Serum 3 mIU/mL (1-3)
== END | disposition home or self-care (01) ==
LOC: LAB 10:38
PROVIDERS: Advanced Practice Midwife; Visit Provider Obstetrics & Gynecology
DX: O20.0 Threatened abortion (principal); Z3A.00 Weeks of gestation of pregnancy not specified
CPT/HCPCS: 36415; 84702

== ENCOUNTER → 2023-08-09 | Outpatient (CLI) | payer OTHER, SELFPAY ==
[2023-08-09 17:28] LABS: Protein, Urine (Random) 31.4 mg/dL (<11.9); Protein:Creat Ratio 124 mg/g CRE (0-200)
[2023-08-13 05:07] LABS: Chlamydia By Nucleic Acid AMP Negative (Negative); Gonococcus By Nucleic Acid AMP Negative (Negative)
== END | disposition home or self-care (01) ==
LOC: LABSPEC 16:29
PROVIDERS: Referring Provider Advanced Practice Midwife; Visit Provider Advanced Practice Midwife
DX: O16.9 Unspecified maternal hypertension, unspecified trimester (principal); Z3A.00 Weeks of gestation of pregnancy not specified
CPT/HCPCS: 82570; 84156; 87086; 87491; 87591

== ENCOUNTER → 2023-08-22 | Outpatient (CLI) | payer OTHER, SELFPAY ==
[2023-08-22 10:16] LABS: Absolute Lymphocyte Count 1.75 X10^3/uL (0.83-4.51); Absolute Neutrophil Count 5.9 X10^3/uL (2.0-7.7); Basophil# 0.04 X10^3/uL; Basophil% 0.5 % (0-1); Eosinophil# 0.07 X10^3/uL; Eosinophils% 0.8 % (0-5); Hematocrit 38.4 % (37-47); Hemoglobin 12.6 g/dL (12.0-15.0); Lymphocyte # 1.75 X10^3/ul (0.83-4.51); Lymphocyte % 20.7 % (19-41); Mean Corp Hgb Conc 32.8 g/dL (32-36); Mean Corpuscular Hgb 28.6 pg (27.0-32.0); Mean Corpuscular Volume 87.1 fL (81-99); Monocyte# 0.62 X10^3/uL; Monocyte% 7.3 % (0-10); NRBC Flagged by Analyzer 0 % (0-5); Neutrophil # 5.93 X10^3/uL (2.7-7.7); Neutrophil % 70.1 % (47-70); Platelet Count 312 K/mm3 (150-450); RBC Distribution Width CV 14.2 % (11.6-14.6); RBC Distribution Width SD 44.9 fl (35.1-43.9); Red Blood Count 4.41 M/mm3 (4.2-5.4); White Blood Count 8.5 K/mm3 (4.4-11.0)
[2023-08-22 10:46] LABS: ALB/GLOB Ratio 0.8 RATIO (0.9-2.4); AST(SGOT) 15 U/L (15-37); Alanine Aminotransfer ALT/SGPT 22 U/L (13-56); Albumin, Serum 3.1 g/dL (3.2-5.0); Alkaline Phosphatase 76 U/L (45-117); Anion Gap 6 (5-15); BUN 9 mg/dL (7-18); BUN/Creat Ratio 13.8 RATIO (10-20); Calcium,Total 8.8 mg/dL (8.5-10.1); Chloride 106 mmol/L (98-107); Creatinine, Serum 0.65 mg/dL (0.55-1.02); EST Glomerular Filtration Rate 113 mL/min (>60); Est Glom Filt Rate - Afr Amer 136 mL/min (>60); Glucose 89 mg/dL (74-106); Potassium 3.8 mmol/L (3.5-5.1); Protein, Total 7.1 g/dL (6.4-8.2); Sodium Level 137 mmol/L (136-145)
[2023-08-22 11:27] LABS: HIV - WCH Non-Reactive (Nonreactive); Hepatitis B Surface Antigen Non-Reactive (Nonreactive); Hepatitis C Antibody Non-Reactive (Nonreactive); Rubella IgG Reactive (Nonreactive); Syphilis Antibodies Non-reactive
--- OUTSIDE RECORDS SUMMARY | 2023-08-22 12:31 | XMS RPT_ITS | CCD ---
Author Name Unknown Address [id number] [place] [address] Organization [facility] Care Team Providers Care Patent Counsel Name Role Phone Darrell Vick Unavailable Unavailable Darrell Vick Unavailable Unavailable Mary Jo CERVANTES, Myriam Santamaria Primary Care Provider Mary Jo CERVANTES, Myriam Santamaria Primary Care Provider Mary Jo CERVANTES, Myriam Santamaria Primary Care Provider Mary Jo CERVANTES, Myriam Santamaria Primary Care Provider MYRIAM CISNEROS Attending MYRIAM Barone Primary Care UnavailMYRIAM Nguyễn Primary Care MYRIAM Barone Attending MYRIAM Barone Primary Care Iqra IRWIN MD, MICHAEL Attending Unavailable Allergies Allergy Classification Reported Allergen(s) Allergy Type Date of Onset Reaction(s) Facility (20 sources) Seasonal allergy; Translations: [SEASONAL ALLERGIES] Allergy to substance 6 Other: See Comments [facility] Medications Completed/Discontinued Medications Medication Drug Class(es) [...] [Essential (primary) hypertension] Onset: 03-31-2019 03-31-2019 Chronic Hemorrhage during ; abruptio placenta; placenta previa (1 source) Hemorrhage in early , unspecified; Translations: [Bleeding in early ] Onset: 08-21-2023 Episodic Immunizations and screening for infectious disease (7 sources) Viral screening status; Translations: [Encounter for screening for other viral diseases] Episodic Menstrual disorders (20 sources) Break-through bleeding; Translations: [Excessive and frequent menstruation with irregular cycle] Onset: 11-15-2017 11-15-2017 Chronic Other aftercare (1 source) Patient encounter status; Translations: [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] 04-01-2023 Episodic Other liver diseases (1 source) High lipase level in serum; Translations: [Abnormal levels of other serum enzymes] Episodic Other nutritional; endocrine; and metabolic disorders (1 source) Increased body mass index; Translations: [Other symptoms and signs concerning food and fluid intake] Episodic Other and delivery including normal (1 source) Encounter for supervision of normal , unspecified, unspecified trimester; Translations: [, unspecified gestational age] Onset: 08-21-2023 Episodic Other upper respiratory infections (1 source) Acute upper respiratory infection; Translations: [Acute upper respiratory infection, unspecified] Episodic Residual codes; unclassified (20 sources) Obstructive sleep apnea syndrome; Translations: [Obstructive sleep apnea (adult) (pediatric)] Onset: 02-01-2021 02-01-2021 Chronic Unclassified (1 source) Unknown / UNK(Unknown) Onset: 05-28-2017 Past or Other Problems Problem Classification Problem Date Documented Da te Episodic/Chronic Blindness and vision defects (20 sources) Myopia; Translations: [Myopia, unspecified eye] Onset: 08-09-2016 08-09-2016 Episodic Diabetes or abnormal glucose tolerance complicating ; childbirth; or the puerperium (20 sources) History of gestational diabetes mellitus; Translations: [Personal history of gestational diabetes] Onset: 08-11-2022 Episodic Unclassified (1 source) SCR Onset: 05-28-2017 Results Test Name Value Interpretation Reference Range Facil ity Vital Signs Date Time Vital Sign Value Performing Clinician Magaly rizzo 04-01-2023 12:58-0400 Diastolic blood pressure 72 mm[Hg] Myriam Cisneros MD Work Phone: [facility] 04-01-2023 12:58-0400 Heart rate 52 /min Myriam Daniels Work Phone: [facility] 04-01-2023 12:58-0400 Systolic blood pressure 123 mm[Hg] Myriam Cisneros MD Work Phone: [facility] 04-01-2023 12:55-0400 Body height 164.2 cm Myriam Daniels Work Phone: [facility] 04-01-2023 12:55-0400 Body temperature 98.01 [degF] Myriam Daniels Work Phone: [facility] 04-01-2023 12:55-0400 Body weight 79.65 kg Myriam Daniels Work Phone: [facility] 04-01-2023 12:55-0400 Respiratory rate 16 /min Myriam Daniels Work Phone: [facility] 04-01-2023 12:55-0400 SaO2% (BldA) [Mass fraction] 100 % Myriam Cisneros MD Work Phone: [facility] 11-08-2022 15:39-0400 Diastolic blood pressure 78 mm[Hg] Myriam Cisneros MD Work Phone: [facility] 11-08-2022 15:39-0400 Heart rate 63 /min Myriam Daniels Work Phone: [facility] 11-08-2022 15:39-0400 Systolic blood pressure 119 mm[Hg] Myriam Cisneros MD Work Phone: [facility] 11-08-2022 15:35-0400 Body height 162.6 cm Myriam Daniels Work Phone: [facility] 11-08-2022 15:35-0400 Body temperature 98.49 [degF] Myriam Daniels Work Phone: [facility] 11-08-2022 15:35-0400 Body weight 77.11 kg Myriam Daniels Work Phone: [facility] 11-08-2022 15:35-0400 Respiratory rate 16 /min Myriam Daniels Work Phone: [facility] 11-08-2022 15:35-0400 SaO2% (BldA) [Mass fraction] 99 % Myriam Cisneros MD Work Phone: [facility] 07-03-2022 18:44-0500 Diastolic blood pressure 66 mm[Hg] Lisandra Gunter PERSONNEL GENERALIST MANAGER.KEYCASE ASSEMBLER Work Phone: [facility] 07-03-2022 18:44-0500 Systolic blood pressure 142 mm[Hg] Lisandra Gunter PERSONNEL GENERALIST MANAGER.KEYCASE ASSEMBLER Work Phone: [facility] 07-03-2022 18:40-0500 Body temperature 96.91 [degF] Lisandra Gunter PERSONNEL GENERALIST MANAGER.KEYCASE ASSEMBLER Work Phone: [facility] 07-03-2022 18:40-0500 Body weight 75.84 kg Lisandra Gunter PERSONNEL GENERALIST MANAGER.KEYCASE ASSEMBLER Work Phone: [facility] 07-03-2022 18:40-0500 Heart rate 65 /min Lisandra Gunter PERSONNEL GENERALIST MANAGER.KEYCASE ASSEMBLER Work Phone: [facility] 07-03-2022 18:40-0500 Respiratory rate 16 /min Lisandra Gunter PERSONNEL GENERALIST MANAGER.KEYCASE ASSEMBLER Work Phone: [facility] 07-03-2022 18:40-0500 SaO2% (BldA) [Mass fraction] 100 % Lisandra Gunter PERSONNEL GENERALIST MANAGER.KEYCASE ASSEMBLER Work Phone: [facility] 06-15-2022 15:21-0500 Body height 162.6 cm Buddy Wheeler i, MD Work Phone: [facility] 06-15-2022 15:21-0500 Body weight 73.48 kg Buddy Wheeler i, MD Work Phone: [facility] 06-15-2022 15:21-0500 Diastolic blood pressure 80 mm[Hg] Buddy Carrera MD Work Phone: [facility] 06-15-2022 15:21-0500 Heart rate 88 /min Buddy Wheeler i, MD Work Phone: [facility] 06-15-2022 15:21-0500 SaO2% (BldA) [Mass fraction] 98 % Buddy Carrera MD Work Phone: [facility] 06-15-2022 15:21-0500 Systolic blood pressure 138 mm[Hg] Buddy Carrera MD Work Phone: [facility] 05-10-2022 08:19-0500 Diastolic blood pressure 70 mm[Hg] Lisandra Gunter PERSONNEL GENERALIST MANAGER.KEYCASE ASSEMBLER Work Phone: [facility] 05-10-2022 08:19-0500 Systolic blood pressure 122 mm[Hg] Lisandra Gunter PERSONNEL GENERALIST MANAGER.KEYCASE ASSEMBLER Work Phone: [facility] 05-10-2022 08:05-0500 Body temperature 98.71 [degF] Lisandra Gunter PERSONNEL GENERALIST MANAGER.KEYCASE ASSEMBLER Work Phone: [facility] 05-10-2022 08:05-0500 Body weight 72.39 kg Lisandra Gunter PERSONNEL GENERALIST MANAGER.KEYCASE ASSEMBLER Work Phone: [facility] 05-10-2022 08:05-0500 Heart rate 79 /min Lisandra Gunter PERSONNEL GENERALIST MANAGER.KEYCASE ASSEMBLER Work Phone: [facility] 05-10-2022 08:05-0500 Respiratory rate 16 /min Lisandra Gunter PERSONNEL GENERALIST MANAGER.KEYCASE ASSEMBLER Work Phone: [facility] 05-10-2022 08:05-0500 SaO2% (BldA) [Mass fraction] 100 % Lisandra Gunter PERSONNEL GENERALIST MANAGER.KEYCASE ASSEMBLER Work Phone: [facility] 03-20-2022 08:18-0400 Diastolic blood pressure 78 mm[Hg] Lisandra Gunter PERSONNEL GENERALIST MANAGER.KEYCASE ASSEMBLER Work Phone: [facility] 03-20-2022 08:18-0400 Systolic blood pressure 130 mm[Hg] Lisandra Gunter PERSONNEL GENERALIST MANAGER.KEYCASE ASSEMBLER Work Phone: [facility] 03-20-2022 08:07-0400 Body temperature 98.71 [degF] Lisandra Gunter PERSONNEL GENERALIST MANAGER.KEYCASE ASSEMBLER Work Phone: [facility] 03-20-2022 08:07-0400 Body weight 70.76 kg Lisandra Gunter PERSONNEL GENERALIST MANAGER.KEYCASE ASSEMBLER Work Phone: [facility] 03-20-2022 08:07-0400 Heart rate 64 /min Lisandra Gunter PERSONNEL GENERALIST MANAGER.KEYCASE ASSEMBLER Work Phone: [facility] 03-20-2022 08:07-0400 Respiratory rate 16 /min Lisandra Gunter PERSONNEL GENERALIST MANAGER.KEYCASE ASSEMBLER Work Phone: [facility] 03-20-2022 08:07-0400 SaO2% (BldA) [Mass fraction] 100 % Lisandra Gunter PERSONNEL GENERALIST MANAGER.KEYCASE ASSEMBLER Work Phone: [facility] 01-18-2022 14:00-0400 Body height 162.6 cm Myriam Daniels Work Phone: [facility] 01-18-2022 14:00-0400 Body temperature 98.01 [degF] Myriam Daniels Work Phone: [facility] 01-18-2022 14:00-0400 Body weight 70.94 kg Myriam Daniels Work Phone: [facility] 01-18-2022 14:00-0400 Diastolic blood pressure 74 mm[Hg] Myriam Cisneros MD Work Phone: [facility] 01-18-2022 14:00-0400 Heart rate 55 /min Myriam Daniels Work Phone: [facility] 01-18-2022 14:00-0400 Respiratory rate 16 /min Myriam Daniels Work Phone: [facility] 01-18-2022 14:00-0400 SaO2% (BldA) [Mass fraction] 100 % Myriam Cisneros MD Work Phone: [facility] 01-18-2022 14:00-0400 Systolic blood pressure 132 mm[Hg] Myriam Cisneros MD Work Phone: [facility] Encounters Encounter Date Encounter Type Care Provider Facility Start: 08-21-2023 End: 08-21-2023 Emergency department patient visit MYRIAM CISNEROS Facility:[facility] Start: 08-20-2023 Telephone encounter Myriam Cisneros MD Work Phone: [facility] [place] Procedures Date Procedure Procedure Detail Performing Clinician Start: 08-21-2023 Antibody screen ALYSSIA CISNEROS Plan of Treatment Date Care Activity Detail Author Start: 04-19-[address] [facility] Start: 07-26-2026 PAP TESTING PAP TESTING [facility] Start: 07-26-2026 Screening for malign ant neoplasm of cervix Pap Testing [facility] Start: 07-26-2024 PAP TESTING PAP TESTING 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 Start: 04-01-2024 BP Controlled (<130/80) BP Controlle d (<130/80) [facility] Start: 04-01-2024 Covid-19 Vaccine ( season) Covid-19 Vaccine ( season) [facility] Immunizations Immunization Date Immunization Notes Care Provider Tamia bennett 04-01-2023 influenza, injectabl e, quadrivalent, contains preservative Myriam Cisneros MD Work Phone: [facility] 03-20-2022 influenza, injectabl e, quadrivalent, contains preservative Lisandra Gunter PERSONNEL GENERALIST MANAGER.KEYCASE ASSEMBLER Work Phone: [facility] 03-20-2022 influenza virus vacc ine, unspecified formulation Lisandra Gunter PERSONNEL GENERALIST MANAGER.KEYCASE ASSEMBLER Work Phone: [facility] 04-19-2021 diphtheria, tetanus toxoids and acellular pertussis vaccine, unspecified formulation Myriam Cisneros MD Work Phone: [facility] Work Phone: 03-31-2019 influenza, injectabl e, quadrivalent, contains preservative Myriam Cisneros MD Work Phone: [facility] 03-06-2018 influenza, injectabl e, quadrivalent, contains preservative Myriam Cisneros MD Work Phone: [facility] 04-12-2017 influenza, injectabl e, quadrivalent, contains preservative Myriam Cisneros MD Work Phone: [facility] 04-25-2016 influenza, injectabl e, quadrivalent, contains preservative Myriam Cisneros MD Work Phone: [facility] 10-21-2013 hepatitis A vaccine, adult dosage Myriam Cisneros MD Work Phone: [facility] 11-16-2010 hepatitis A vaccine, pediatric/adolescent dosage, 2 dose schedule Myriam Cisneros MD Work Phone: [facility] 11-16-2010 hepatitis A vaccine, unspecified formulation Myriam Cisneros MD Work Phone: [facility] 11-16-2010 meningococcal polysaccharide (groups A, C, Y and W-135) diphtheria toxoid conjugate vaccine (MCV4P) Myriam Cisneros MD Work Phone: [facility] 11-16-2010 meningococcal polysaccharide vaccine (MPSV4) Myriam Cisneros MD Work Phone: [facility] 11-16-2010 tetanus toxoid, redu gema diphtheria toxoid, and acellular pertussis vaccine, adsorbed Myriam Cisneros MD Work Phone: [facility] 05-17-2009 novel influenza-H1N1 -, preservative-free, injectable Myriam Cisneros MD Work Phone: [facility] 09-29-1997 diphtheria, tetanus toxoids and acellular pertussis vaccine, unspecified formulation Myriam Cisneros MD Work Phone: [facility] 09-29-1997 measles, mumps and rubella virus vaccine Myriam Cisneros MD Work Phone: [facility] 09-29-1997 poliovirus vaccine, unspecified formulation Myriam Cisneros MD Work Phone: [facility] 06-14-1997 hepatitis B vaccine, pediatric or pediatric/adolescent dosage Myriam Cisneros MD Work Phone: [facility] 12-07-1996 hepatitis B vaccine, adult dosage Myriam Cisneros MD Work Phone: [facility] 12-07-1996 hepatitis B vaccine, pediatric or pediatric/adolescent dosage Myriam Cisneros MD Work Phone: [facility] 10-30-1996 hepatitis B vaccine, adult dosage Myriam Cisneros MD Work Phone: [facility] 10-30-1996 hepatitis B vaccine, pediatric or pediatric/adolescent dosage Myriam Cisneros MD Work Phone: [facility] 08-24-1993 diphtheria, tetanus toxoids and acellular pertussis vaccine, unspecified formulation Myriam Cisneros MD Work Phone: [facility] 08-24-1993 haemophilus influenz ae type b vaccine, PRP-T conjugate Myriam Cisneros MD Work Phone: [facility] 08-24-1993 measles, mumps and rubella virus vaccine Myriam Cisneros MD Work Phone: [facility] 08-24-1993 trivalent poliovirus vaccine, live, oral Myriam Cisneros MD Work Phone: [facility] 1992 diphtheria, tetanus toxoids and pertussis vaccine Myriam Cisneros MD Work Phone: [facility] 1992 haemophilus influenz ae type b vaccine, PRP-T conjugate Myriam Cisneros MD Work Phone: [facility] 1992 diphtheria, tetanus toxoids and pertussis vaccine Myriam Cisneros MD Work Phone: [facility] 1992 haemophilus influenz ae type b vaccine, PRP-T conjugate Myriam Cisneros MD Work Phone: [facility] 1992 trivalent poliovirus vaccine, live, oral Myriam Cisneros MD Work Phone: [facility] 1992 diphtheria, tetanus toxoids and pertussis vaccine Myriam Cisneros MD Work Phone: [facility] 1992 haemophilus influenz ae type b vaccine, PRP-T conjugate Myriam Cisneros MD Work Phone: [facility] 1992 trivalent poliovirus vaccine, live, oral Myriam Cisneros MD Work Phone: [facility] Payers Date Payer Category Payer Private Health Insurance [id number] 2020 Private Health Insurance DOMENIC TRUJILLO [id number] 2020-Present [phone] [address] [place] [id number] Open Access [id number] 2020 Private Health Insurance [id number] 2020 Private Health Insurance [id number] Social History Date Type Detail Facility Start: 06-18-2013 End: 03-20-2022 Tobacco smoking status NHIS Never smoked tobacco [facility] Start: 06-18-2013 End: 03-20-2022 Tobacco use and exposure Smokeless tobacco non-user [facility] Start: 06-27-2021 End: 04-01-2023 Alcohol intake Current drinker of alcohol (finding) [facility] Start: 10-11-2020 End: 05-09-2022 History SDOH Alcohol Frequency 4 [facility] Start: 10-11-2020 End: 05-09-2022 History SDOH Alcohol Std Drinks 1 [facility] Start: 06-18-2013 History SDOH Alcohol Comment rarely [facility] Start: 10-11-2020 End: 05-09-2022 History SDOH Social Connections Phone 5 [facility] Start: 10-11-2020 End: 05-09-2022 History SDOH Social Connections Mormon 2 [facility] Start: 10-11-2020 End: 10-11-2021 History SDOH Social Connections Meetings 98 [facility] Start: 10-11-2020 End: 05-09-2022 History SDOH Social Connections Living 3 [facility] Start: 08-13-[address] [facility] Start: 1990 Sex Assigned At Not on file [facility] Start: 10-01-2021 End: 05-10-2022 Exposure to SARS-CoV-2 (event) Not sure [facility] Start: 05-15-2020 End: 05-08-2022 History of Social function [facility] Start: 05-15-2020 End: 05-08-2022 Social connection and isolation panel [facility] Do you belong to any clubs or organizations such as pentecostalism groups, unions, fraternal or athletic groups, or school groups? No [facility] Are you now , , , , never or living with a partner? [facility] How often to you hav e a drink containing alcohol? 2-[address] [facility] How many standard dr inks containing alcohol do you have on a typical day? [address] [facility] How often do you hav e 6 or more drinks on 1 occasion? Never [facility] How hard is it for y ou to pay for the very basics like food, housing, medical care, and heating Not hard at all [facility] Do you feel stress - tense, restless, nervous, or anxious, or unable to sleep at night because your mind is troubled all the time - these days [OSQ] Not at all [facility] (I/We) worried wheth er (my/our) food would run out before (I/we) got money to buy more. Never true [facility] Clinical Notes 11-15-2017 to 08-20-2023 Telephone Encounter - Cielo An MA - 08/20/2023 4:31 PM EDTTelephone Encounter - Mile Noel - 04/18/2023 11:57 AM Myriam Phipps MD - 04/01/2023 1:13 PM EDTPatient Instructions Note Date & Type Note Facility 08-20-2023 Miscellaneous Notes Placed results on Dr Cisneros's desk for review Cielo An MA documented in this encounter [facility] 04-18-2023 Miscellaneous Notes Type of form: physical Form received via walk in When form is completed, call patient Form has been forwarded to Physician Mailbox: Dr. Mary Jo Noel documented in this encounter [facility] 04-01-2023 Note HNO ID: [id number] Author: Myriam Cisneros MD Service: ? Author Type: Physician Type: Progress Notes Filed: 04/01/2023 1:40 PM Note Text: Lyle Jacinto is a 32 year old female who [...] (FLONASE) 50 mcg/actuation nasal spray Use 1 [place] in each nostril daily at bedtime. Use as directed. (Patient taking differently: Use 1 [place] in each nostril daily at bedtime. Use as directed. PRN) No current facility-administered medications for this visit. 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 [facility] 04-01-2023 Note HNO ID: [id number] Author: Cielo nA MA Service: ? Author Type: Line Service Attendant Type: Progress Notes Filed: 04/01/2023 1:40 PM [...] Foot and Retinal Eye Exam not Overdue [facility] 04-01-2023 History of Present illness Narrative Lyle Jacinto is a 32 year old female who [...] (FLONASE) 50 mcg/actuation nasal spray Use 1 [place] in each nostril daily at bedtime. Use as directed. (Patient taking differently: Use 1 [place] in each nostril daily at bedtime. Use as directed. PRN) No current facility-administered medications for this visit. 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 04-01-2023 Instructions Cielo An MA - 04/01/2023 12:57 PM EDT [facility] TEST INFORMATION [facility] HOURS: Lab is open: 7:30am to 5:00pm - , 7:30am to 4:00pm on Sat and 8am -12pm on Sat. The lab is located in [facility] on the first floor. There is a registration window at the lab, available 7 am to 3 pm Saturday - Saturday. If registration is unavailable at the lab, you may register at the patient registration office near [facility]. SCHEDULING A LAB APPOINTMENT: Laboratory appointments are recommended.Walk ins are still accepted. Call [phone] or schedule via [employer] scheduling ticket. ROUTINE LAB ORDERS 60 days [...] REFILL REQUESTS Request prescription refills through your [employer] account or contact your Pharmacy. My Chart Schedule My Appointment enables you to view your established primary care provider's open schedule and book an appointment online in real-time. This feature is available in internal medicine, family medicine, or pediatrics at any of our [facility] locations and main campus. documented in this encounter [facility] 04-01-2023 Nurse Note Patient presents with: Yearly Exam documented in this encounter [facility] 02-28-2023 Miscellaneous Notes Patient's request for medication is as follows: Requested Prescriptions Signed Prescriptions Disp Refills labetalol (TRANDATE) 200 mg tablet 60 tablet 1 Sig: Take 1 tablet by mouth twice daily. Prescription(s) as above. Please process accordingly. Lisandra Gunter APRN.FRANKLIN documented in this encounter [facility] 01-22-2023 Miscellaneous Notes Patient's request for medication is as follows: Requested Prescriptions Signed Prescriptions Disp Refills labetalol (TRANDATE) 100 mg tablet 60 tablet 1 Sig: Take 1 tablet by mouth twice daily. Prescription(s) as above. Please process accordingly. Lisandra Gunter APRN.CNP documented in this encounter [facility] 11-08-2022 Note HNO ID: [id number] Author: Myriam Cisneros MD Service: ? Author Type: Physician Type: Progress Notes Filed: 11/08/2022 4:11 PM Note Text: Lyle Jacinto is a 32 year old female who [...] (FLONASE) 50 mcg/actuation nasal spray Use 1 [place] in each nostril daily at bedtime. Use as directed. (Patient taking differently: Use 1 [place] in each nostril daily at bedtime. Use [...] continue - SERTRALINE 25 MG TABLET Myriam Cisneros MD [facility] 11-08-2022 Note HNO ID: [id number] Author: Antonella Carter MA Service: ? Author Type: Line Service Attendant Type: Progress Notes Filed: 11/08/2022 4:11 PM Note Text: HEPATITIS C SCREENING Never done HIV SCREENING Never done BP CONTROLLED (<130/80) Never done HPV TESTING due on 2022 [facility] 11-08-2022 History of Present illness Narrative Lyle Jacinto is a 32 year old female who [...] (FLONASE) 50 mcg/actuation nasal spray Use 1 [place] in each nostril daily at bedtime. Use as directed. (Patient taking differently: Use 1 [place] in each nostril daily at bedtime. Use [...] continue - SERTRALINE 25 MG TABLET Myriam Cisneros MD HEPATITIS C SCREENING Never done HIV SCREENING Never done BP CONTROLLED (<130/80) Never done HPV TESTING due on 2022 documented in this encounter [facility] 09-03-2022 Miscellaneous Notes FYI documented in this encounter [facility] 08-10-2022 Miscellaneous Notes Left message for [...] Protocols used: No Contact or Duplicate Contact [id number] Home machine running slightly higher than office. [...] review and advise documented in this encounter [facility] 07-03-2022 History of Present illness Narrative [...] ICD9: 530.81, ICD10: K21.9 Improved Lisandra Gunter APRN.KEYCASE ASSEMBLER HEPATITIS C SCREENING Never done HIV SCREENING Never done BP CONTROLLED (<130/80) Never done COVID-19 VACCINE(4 - Booster for Moderna series) due on 08/25/2021 HPV TESTING due on 2022 DEPRESSION ASSESSMENT due on 06/10/2022 documented in this encounter [facility] 06-19-2022 Miscellaneous Notes See other encounter [...] [facility] documented in this [facility] 06-19-2022 Miscellaneous Notes See refill encounter documented in this encounter [facility] 06-19-2022 Miscellaneous Notes Spoke with patient [...] Order(s) pended. Please advise. Loraine Grider LPN, CMA documented in this encounter [facility] 06-15-2022 History of Present illness Narrative [facility] Initial Clinic Visit Note NAME: Lyle Jacinto PCP: Myriam Cisneros MD Requesting Provider: Lisandra Gunter [address] [facility] [address] My final recommendations will be communicated back to the requesting physician by way of shared medical record or letter via US mail. Chief Complaint: hypertension History of Present Illness: Lyle Jacinto is a 32 year old female presenting with chronic hx of idiopathic primary HTN. She is here to inquire whether there is an endocrinology etiology to the HTN. She is a sole ruffer and follows a good diet. She is [...] (FLONASE) 50 mcg/actuation nasal spray Use 1 [place] in each nostril daily at bedtime. Use as directed. (Patient taking differently: Use 1 [place] in each nostril daily at bedtime. Use [...] TSH (uU/mL) Date Value 03/28/2019 3.050 ASSESSMENT: Lyle Jacinto is a 32 year old female with [...] to check her hyperaldosteronism or pheochromocytoma or [place]'s syndrome 2. Hx of gestational DM - Check HbA1c 3. Chronic fatigue - Check vitamin D levels I spent a total of 20 minutes on the date of the service which included preparing to see the patient, [id number] patient care, completing clinical documentation, obtaining and/or reviewing separately obtained history, performing a medically appropriate examination, counseling and educating the patient/family/caregiver, and ordering medications, tests, or procedures. Buddy Carrera MD [facility] Endocrinology and Metabolism [place] [facility] [phone] Medical Decision Making: Problems: Low: Stable chronic illness Data: Unique test result(s) reviewed: 3+ Unique test(s) ordered: 3+ Medical Decision Making Level: 3 - Low Answers submitted by the patient for this visit: Endocrine Review of Systems (Submitted on 06/14/2022) Blood Clots?: No Joint Pain or Stiffness: No documented in this encounter [facility] 05-21-2022 History of Present illness Narrative Radiology Service Progress Note PATIENT NAME: Lyle Jacinto DATE OF SERVICE: May 21, 2022 TIME: [...] 2022 3:53 PM documented in this encounter [facility] 05-10-2022 History of Present illness Narrative Patient presents with: Follow Up HTN: Ms. Jacinto indicates that she is feeling well and [...] teeth MYRINGOTOMY ASPIR&/EUSTACHIAN TUBE NFLTJ ANES Myringotomy/tubes Current Outpatient Medications on File Prior to Visit Medication Sig sertraline (ZOLOFT) 25 mg tablet Take 1 tablet by mouth once daily. fluticasone (FLONASE) 50 mcg/actuation nasal spray Use 1 [place] in each nostril daily at bedtime. Use as directed. (Patient taking differently: Use 1 [place] in each nostril daily at bedtime. Use [...] EXAMINATION: BP 122/70 Pulse 79 Temp 37.1 C (98.7 F) (Temporal) Resp 16 Wt 72.4 kg (159 lb 9.6 oz) LMP 02/11/2022 (Approximate) SpO2 100% BMI 27.40 kg/m General appearance: healthy, alert, cooperative, pleasant, [...] 10,000 UNIT-TRIMETHOPRIM 1 MG/ML EYE DROPS Lisandra Gunter APRN.CNP HEPATITIS C SCREENING Never done HIV SCREENING Never done BP CONTROLLED (<130/80) Never done DEPRESSION ASSESSMENT Never done COVID-19 VACCINE(4 - Booster for Moderna series) due on 08/25/2021 HPV TESTING due on 2022 documented in this encounter [facility] 04-25-2022 Miscellaneous Notes Patient requesting refills as follow: Last prescribed : 02/21/22 Last OV: 04/06/22 Next OV: 05/08/22 Requested Prescriptions Pending Prescriptions Disp Refills sertraline (ZOLOFT) 25 mg tablet 30 tablet 1 Sig: Take 1 tablet by mouth once daily. Please review and advise. Theresa Whitmore Ma documented in this encounter [facility] 04-06-2022 Miscellaneous Notes Form placed at front counter attendant for patient to bean picker. Forms completed. Placed in outbox. Please fax. Placed on providers desk for completion documented in this encounter [facility] 03-27-2022 Miscellaneous Notes Patient called c/o she only has tonight's dose of sertraline left and her Rx was declined. This RN called [facility] and they found a remaining Rx for 30 tablets from her February Rx and will get this ready for the patient. This RN called patient to notify [facility] will have it ready for her. Patient verbalized understanding. Reason for Disposition Patient has refills remaining on their prescription Protocols used: Medication Refill and Renewal [id number] Refill at pharmacy Pharmacy verified in Plaid. Patient has been identified by name and date of : Yes Patient aware RX will be sent to pharmacy. No need to notify patient. Patient phones for refill(s): Requested Prescriptions Pending Prescriptions Disp Refills sertraline (ZOLOFT) 25 mg tablet [Pharmacy Med Name: sertraline 25 mg tablet] 30 tablet 1 Sig: TAKE 1 TABLET BY MOUTH ONCE DAILY Date of last office visit : 03/20/2022 Date of next office visit : 05/08/2022 Last 2 Encounter Wt Readings: Date: Wt: 03/20/2022 70.8 kg (156 lb) 01/18/2022 70.9 kg (156 lb 6.4 oz) Not applicable Please advise. Cielo An MA ' documented in this encounter [facility] 03-20-2022 History of Present illness Narrative CC: 8 week BP follow up HPI: Patient d/c labetalol and started on lisinopril 20 mg at visit 8 weeks ago. Denies adverse effects (lower extremity swelling, cough, dizziness, lightheadedness). Home BP's are running 130's/upper 70's to 80's. Patient started Zoloft 25 mg 4 weeks ago and feels it is helping with her post- anxiety. She feels less irritated and short with others. She states her has noticed a difference as well. She would like to continue current dose. Had adverse effects (dizziness) for 2 days when starting, but this has stopped. ROS: General: Patient denies fever, illness. Cardiac: Patient denies heart palpitations, chest pain. Respiratory: Patient denies shortness of breath and cough. Extremities: Patient denies swelling in lower extremities. Psychiatric: Patient denies irritation, anxiety and depression. Objective: Manual BP: 130/78 HR 64 RR 16 Spo2 100% General: Skin warm and dry. Patient appears well, not anxious. Cardiac: Heart RRR. Respiratory: Lung sounds clear in all lobes, no adventitious sounds heard. Extremities: No swelling in lower extremities. Distal pulses equal strength and regular, not bounding. Social: Non-smoker. No illegal drug use. Rarely drinks alcohol. Assessment: Essential hypertension uncontrolled with lisinopril 20 mg. No adverse effects with current lisinopril dose. 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 Plan: Increase lisinopril to 40 mg and follow up in 6 weeks for BP check. Patient in agreement with plan. She will continue checking BP at home and will call the office with any concerns. Continue current dose Zoloft and follow up with office if concerns about increasing anxiety symptoms or adverse effects. Refills sent to pharmacy. Denice Carrero RN ([employer] [facility] student) Attending Note I have personally performed a face to face assessment of the patient and have reviewed the ROB note. My antonio findings include: Assessment/Plan are increase lisinopril to 40 mg daily. Continue zoloft at 25 mg daily. Labs reviewed. F/u in 6 weeks for bp recheck. Continue home monitoring. Other additions or changes: As edited Signature: Lisandra Gunter Date: 03/20/2022 Time: 10:07 AM HEPATITIS C SCREENING Never done HIV SCREENING Never done BP CONTROLLED (<130/80) Never done DEPRESSION ASSESSMENT Never done COVID-19 VACCINE(4 - Booster for Moderna series) due on 08/25/2021 INFLUENZA(1) due on 02/08/2022 documented in this encounter [facility] 02-21-2022 Miscellaneous Notes Addended by: LISANDRA CID on: 02/21/2022 12:48 PM Modules accepted: Orders Med list updated. Will again discuss at Mar. documented in this encounter [facility] 02-20-2022 Miscellaneous Notes Placed report on dr Cisneros's desk for review Cielo An MA documented in this encounter 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 Jacinto indicates that she is feeling well and denies any symptoms referable to elevated blood pressure. Specifically denies headache, chest pain, palpitations, dyspnea and peripheral edema. Patient denies any side effects of her medication(s) and is compliant with their regimen. She does check BP's away from this office with average BP's in the 120/70s range. Last 3 Encounter BP Readings: Date: BP: 01/18/2022 132/74 06/27/2021 120/64 05/13/2021 105/67 got cpap when 8 months had it [...] NFLTJ ANES Myringotomy/tubes MEDICATIONS: Current Outpatient Medications on File Prior to Visit Medication Sig Norethin Orestes-Eth Estrad-FE (MICROGESTIN FE 06/29) 1 mg-20 mcg (21)/75 mg (7) per tablet Take 1 tablet by mouth once daily. fluticasone (FLONASE) 50 mcg/actuation nasal spray Use 1 [place] in each nostril daily at bedtime. Use as directed. (Patient taking differently: Use 1 [place] in each nostril daily at bedtime. Use as directed. PRN ) azelastine (ASTELIN) 0.1% nasal spray Use 2 Sprays in each nostril twice daily. Use as directed. (Patient taking differently: Use 2 Sprays in each nostril twice daily. Use as directed.PRN ) No current facility-administered medications on file prior to visit. 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 No fevers, fatigue, or night sweats. No changes in hearing, vision [...] back pain or discomfort. PHYSICAL EXAMINATION: BP 132/74 Pulse (!) 55 Temp 36.7 C (98 F) (Temporal Artery) Resp 16 Ht 162.6 cm (5' 4 ) Wt 70.9 kg (156 lb 6.4 oz) LMP 01/11/2022 (Approximate) SpO2 100% BMI 26.85 kg/m General: healthy, alert, cooperative, pleasant, in [...] / utd Ext: no edema in LE bilaterally, no joint deformities, good distal pulses, no cyanosis or clubbing, full ROM Skin: Clear without rash ASSESSMENT/PLAN: 1. Routine medical exam - ICD9: V70.0, ICD10: Z00.00 (primary diagnosis) - Counseled on healthy diet and regular exercise - Follow up for annual exam in one year 2. Hypertension, essential - ICD9: 401.9, ICD10: I10 - good control on labetalol w/ side effects d/c labetalol start lisinpril f/u 2 months - Encouraged dietary sodium restriction/DASH diet - Recommended regular aerobic exercise. - Recommend home blood pressure monitoring, to bring results in on next visit 3. Special screening examination for viral disease - ICD9: V73.99, ICD10: Z11.59 - HEP C AB IA W/CONF SCRN 4. Screening for HIV (human immunodeficiency virus) - ICD9: V73.89, ICD10: Z11.4 - HIV 1 2 COMBO(AG/AB),WITH REFLEX TO DIFFERENTIATION 5. Encounter for immunization - ICD9: V03.89, ICD10: Z23 n/a - updated 6. History of gestational diabetes - ICD9: V12.21, ICD10: Z86.32 added to prob list, rec 1 year f/u 7. GERD without esophagitis - ICD9: 530.81, ICD10: K21.9 gerd precautions, rec PPI x 2 weeks then back to prn pepcid if sx improve 8. SANDRA (obstructive sleep apnea) - ICD9: 327.23, ICD10: G47.33 was mild, not on cpap, sx have improved w/ wt loss rec monitor for any sx and f/u prn 9. Anxiety - ICD9: 300.00, ICD10: F41.9 doing well w/ lifestyle measures, encourage good sleep hygiene, regular exercise, stress reduction, relaxation, f/u prn if sx increase Myriam Cisneros MD HEPATITIS C SCREENING Never done HIV SCREENING Never done DTAP,TDAP,TD(7 - Td or Tdap) due on 11/16/2020 Last 3 Encounter BP Readings: Date: BP: 01/18/2022 132/74 06/27/2021 120/64 05/13/2021 105/67 LDL Cholesterol (mg/dL) Date Value 03/28/2019 102 06/18/2013 103 HBA1C: No results found for: HBA1C Protein, Urine (mg/dL) Date Value 03/06/2018 Negative Diabetic Foot and Retinal Eye Exam not Overdue documented in this encounter [facility] 01-18-2022 Instructions Cielo An MA - 01/18/2022 2:02 PM EDT [facility] TEST INFORMATION [facility] HOURS: Lab is open: 7:30am to 5:00pm M - , 7:30am to 4:00pm on Sat and 8am -12pm on Sat. The lab is located in [facility] on the first floor. There is a registration window at the lab, available 7 am to 3 pm Saturday - Saturday. If registration is unavailable at the lab, you may register at the patient registration office near the front lobby of the hospital. SCHEDULING A LAB APPOINTMENT: Laboratory appointments are recommended.Walk ins are still accepted. Call [phone] or schedule via [employer] scheduling ticket. ROUTINE LAB ORDERS 60 days [...] REFILL REQUESTS Request prescription refills through your [employer] account or contact your Pharmacy. My Chart Schedule My Appointment enables you to view your established primary care provider's open schedule and book an appointment online in real-time. This feature is available in internal medicine, family medicine, or pediatrics at any of our [facility] locations and main campus. documented in this encounter [facility] 01-18-2022 Nurse Note Patient presents with: Yearly Exam documented in this encounter [facility] 11-13-2021 Miscellaneous Notes Please review and advise documented in this encounter [facility] 10-11-2021 History of Present illness Narrative VIRTUAL VISIT PROGRESS NOTE This is a virtual visit using [employer] video visit. It required patient-provider interaction for the medical decision making as documented below. Lyle Jacinto is a 31 year old female seen for anxiety since childbirth 4 months. Returned to work 6 weeks ago and finds herself worrying more than she is used to. First week she went back he got sick which causes her to worry about him more. traveling more for work. No longer breast feeding. Not feeling overly depressed. Bps at home well controlled, 120/70s on labetolol 200 mg bid HISTORY REVIEWED (electronic chart updated): PAST MEDICAL [...] Social History Tobacco Use Smoking status: Never Smoker Smokeless tobacco: Never Used Substance Use Topics Alcohol use: Yes Comment: rarely Drug use: No Current Outpatient Medications Medication Sig labetalol (TRANDATE) 200 mg tablet Take 200 mg by mouth twice daily. CPAP AutoPAP 5-20 CM H2O, Mask (pt pref), filters, heated tubing & humidity. Provide access to [facility]. Fax 14, 30 day D/L to [phone]. Lifetime supplies. Dx: G47.33. labetalol (TRANDATE) 100 mg tablet Take 1 tablet by mouth twice daily. (Patient not taking: Reported on 06/27/2021 ) fluticasone (FLONASE) 50 mcg/actuation nasal spray Use 1 [place] in each nostril daily at bedtime. Use as directed. (Patient taking differently: Use 1 [place] in each nostril daily at bedtime. Use as directed. PRN ) azelastine (ASTELIN) 0.1% nasal spray Use 2 Sprays in each nostril twice daily. Use as directed. (Patient not taking: Reported on 06/27/2021 ) No current facility-administered medications for this visit. ALLERGIES Allergen Reactions Seasonal Allergies Other: See Comments CONGESTION REVIEW OF SYSTEMS: As noted in HPI PHYSICAL EXAMINATION: VIDEO EXAM: (if completed, performed via video enabled technology) General appearance: alert, cooperative, pleasant, tearful throughout interviewing PSYCH: Posture and motor behavior: normal Dress, grooming, personal hygiene: hygiene good, normal dress and grooming Facial expression: good eye contact Speech: normal speech Mood: appropriate Coherency and relevance of thought: normal thought processes ASSESSMENT: (F41.9) Anxiety (primary encounter diagnosis) (I10) Hypertension, essential PLAN: Start zoloft 25 mg daily Discussed med r.b.se.u Consider counseling Support given Continue labetolol F/u in 4 weeks, sooner prn There are no Patient Instructions on file for this visit. Lisandra Gunter APRN.KEYCASE ASSEMBLER documented in this encounter [facility] 10-10-2021 Miscellaneous Notes Called and could not reach patient. Left voicemail. Please schedule a virtual appt. documented in this encounter [facility] documented as of this encounter (statuses as of 04/01/2023) [facility] History of Past illness Narrative* Problem Noted Date Diagnosed Date Resolved Date Breakthrough bleeding on control pills 8 04/01/2023 documented as of this encounter (statuses as of 04/18/2023) [facility] History of Past illness Narrative* Problem Noted Date Diagnosed Date Resolved Date Breakthrough bleeding on control pills 8 04/01/2023 documented as of this encounter (statuses as of 08/21/2023) [facility] Diagnosis Anxiety- Primary Anxiety state, unspecified Hypertension, essential Unspecified essential hypertension [facility] Diagnosis Special screening examination for viral disease- Primary Special screening examination for unspecified viral disease Hypertension, essential Unspecified essential hypertension Screening for HIV (human immunodeficiency virus) Special screening examination for other specified viral diseases [facility] Diagnosis Hypertension, essential Unspecified essential hypertension documented in this encounter [facility] note* Diagnosis Routine medical exam- Primary Routine general medical examination at a [facility] Hypertension, essential Unspecified essential hypertension Special screening [...] unspecified documented in this encounter [facility] note* Diagnosis Anxiety Anxiety state, unspecified documented in this encounter [facility] note* Diagnosis Hypertension, essential- Primary Unspecified essential hypertension Encounter for immunization Need for other specified prophylactic vaccination against single bacterial disease Anxiety Anxiety state, unspecified [facility] Diagnosis Anxiety Anxiety state, unspecified documented in this encounter [facility] note* Diagnosis Anxiety Anxiety state, unspecified documented in this encounter [facility] note* Diagnosis Hypertension, essential- Primary Unspecified essential hypertension Anxiety Anxiety state, unspecified Hypertension, unspecified type URI, acute Acute upper respiratory infections of unspecified site [facility] Diagnosis Hypertension, unspecified type- Primary Increased body mass index Other symptoms concerning nutrition, metabolism, and development documented in this encounter [facility] note* Diagnosis Anxiety Anxiety state, unspecified [facility] Diagnosis Hypertension, essential- Primary Unspecified essential hypertension Elevated lipase Other nonspecific abnormal serum enzyme levels GERD without esophagitis Esophageal reflux documented in this encounter [facility] note* Diagnosis Hypertension, essential- Primary Unspecified essential hypertension Anxiety Anxiety state, unspecified documented in this encounter [facility] note* Diagnosis Hypertension, essential- Primary Unspecified essential hypertension documented in this encounter [facility] note* Diagnosis Hypertension, essential- Primary Unspecified essential hypertension documented in this encounter [facility] note* Diagnosis Routine medical exam- Primary Routine general medical examination at a [facility] care facility Hypertension, essential Unspecified essential hypertension Encounter for immunization Need for other specified prophylactic vaccination against single bacterial disease Medication management Encounter for long-term (current) use of other medications documented in this encounter [facility] Summary Purpose Family History No Family History Records FoundNo Family History Records FoundNo Family History Records FoundNo Family History Records Found Advance Directives No Advanced Directives Records FoundNo Advanced Directives Records FoundNo Advanced Directives Records FoundNo Advanced Directives Records Found Reason for Referral Specialty Diagnoses / Procedures Referred By Nathaniel t Referred To Contact Endocrinology Diagnoses Hypertension, unspecified type Procedures CONSULT TO ENDOCRINOLOGY OFFICE/OUTPATIENT [facility] HIGH MDM 60-74 MINUTES Lisandra Cid, PERSONNEL GENERALIST MANAGER.KEYCASE ASSEMBLER [address] [place] [address] Referral ID Status Reason Start Date Expiration Date Visits Requested Visits Authorized [id number] Authorized PCP Requested Referral 05/10/2022 05/10/2023 1 1 Additional Source Comments INFORMATION SOURCE (unrecogn ized section and content) DATE CREATED AUTHOR AUTHOR'S ORGANIZ ATION 10/25/2019 [facility] DATE CREATED AUTHOR AUTHOR'S ORGANIZ ATION 08/22/2023 [facility] DATE CREATED AUTHOR AUTHOR'S ORGANIZ ATION 08/22/2023 [facility] Source Comments (unrecognize d section and content) In the event this informatio n is protected by the Federal Confidentiality of Alcohol and Drug Abuse Patient Records regulations: The Federal rules restrict any use of the information to criminally investigate or prosecute any alcohol or drug abuse patient.[facility] the event this information is protected by the Federal Confidentiality of Alcohol and Drug Abuse Patient Records regulations: The Federal rules restrict any use of the information to criminally investigate or prosecute any alcohol or drug abuse patient.[facility] the event this information is protected by the Federal Confidentiality of Alcohol and Drug Abuse Patient Records regulations: The Federal rules restrict any use of the information to criminally investigate or prosecute any alcohol or drug abuse patient.[facility] the event this information is protected by the Federal Confidentiality of Alcohol and Drug Abuse Patient Records regulations: The Federal rules restrict any use of the information to criminally investigate or prosecute any alcohol or drug abuse patient.[facility] the event this information is protected by the Federal Confidentiality of Alcohol and Drug Abuse Patient Records regulations: The Federal rules restrict any use of the information to criminally investigate or prosecute any alcohol or drug abuse patient.[facility] HospitalIn the event this information is protected by the Federal Confidentiality of Alcohol and Drug Abuse Patient Records regulations: The Federal rules restrict any use of the information to criminally investigate or prosecute any alcohol or drug abuse patient.[facility] HospitalIn the event this information is protected by the Federal Confidentiality of Alcohol and Drug Abuse Patient Records regulations: The Federal rules restrict any use of the information to criminally investigate or prosecute any alcohol or drug abuse patient.[facility] HospitalIn the event this information is protected by the Federal Confidentiality of Alcohol and Drug Abuse Patient Records regulations: The Federal rules restrict any use of the information to criminally investigate or prosecute any alcohol or drug abuse patient.[facility] HospitalIn the event this information is protected by the Federal Confidentiality of Alcohol and Drug Abuse Patient Records regulations: The Federal rules restrict any use of the information to criminally investigate or prosecute any alcohol or drug abuse patient.[facility] HospitalIn the event this information is protected by the Federal Confidentiality of Alcohol and Drug Abuse Patient Records regulations: The Federal rules restrict any use of the information to criminally investigate or prosecute any alcohol or drug abuse patient.[facility] HospitalIn the event this information is protected by the Federal Confidentiality of Alcohol and Drug Abuse Patient Records regulations: The Federal rules restrict any use of the information to criminally investigate or prosecute any alcohol or drug abuse patient.[facility] HospitalIn the event this information is protected by the Federal Confidentiality of Alcohol and Drug Abuse Patient Records regulations: The Federal rules restrict any use of the information to criminally investigate or prosecute any alcohol or drug abuse patient.[facility] HospitalIn the event this information is protected by the Federal Confidentiality of Alcohol and Drug Abuse Patient Records regulations: The Federal rules restrict any use of the information to criminally investigate or prosecute any alcohol or drug abuse patient.[facility] HospitalIn the event this information is protected by the Federal Confidentiality of Alcohol and Drug Abuse Patient Records regulations: The Federal rules restrict any use of the information to criminally investigate or prosecute any alcohol or drug abuse patient.[facility] HospitalIn the event this information is protected by the Federal Confidentiality of Alcohol and Drug Abuse Patient Records regulations: The Federal rules restrict any use of the information to criminally investigate or prosecute any alcohol or drug abuse patient.[facility] HospitalIn the event this information is protected by the Federal Confidentiality of Alcohol and Drug Abuse Patient Records regulations: The Federal rules restrict any use of the information to criminally investigate or prosecute any alcohol or drug abuse patient.[facility] HospitalIn the event this information is protected by the Federal Confidentiality of Alcohol and Drug Abuse Patient Records regulations: The Federal rules restrict any use of the information to criminally investigate or prosecute any alcohol or drug abuse patient.[facility] HospitalIn the event this information is protected by the Federal Confidentiality of Alcohol and Drug Abuse Patient Records regulations: The Federal rules restrict any use of the information to criminally investigate or prosecute any alcohol or drug abuse patient.[facility] HospitalIn the event this information is protected by the Federal Confidentiality of Alcohol and Drug Abuse Patient Records regulations: The Federal rules restrict any use of the information to criminally investigate or prosecute any alcohol or drug abuse patient.[facility] HospitalIn the event this information is protected by the Federal Confidentiality of Alcohol and Drug Abuse Patient Records regulations: The Federal rules restrict any use of the information to criminally investigate or prosecute any alcohol or drug abuse patient.[facility] HospitalIn the event this information is protected by the Federal Confidentiality of Alcohol and Drug Abuse Patient Records regulations: The Federal rules restrict any use of the information to criminally investigate or prosecute any alcohol or drug abuse patient.[facility] HospitalIn the event this information is protected by the Federal Confidentiality of Alcohol and Drug Abuse Patient Records regulations: The Federal rules restrict any use of the information to criminally investigate or prosecute any alcohol or drug abuse patient.[facility] HospitalIn the event this information is protected by the Federal Confidentiality of Alcohol and Drug Abuse Patient Records regulations: The Federal rules restrict any use of the information to criminally investigate or prosecute any alcohol or drug abuse patient.[facility] HospitalIn the event this information is protected by the Federal Confidentiality of Alcohol and Drug Abuse Patient Records regulations: The Federal rules restrict any use of the information to criminally investigate or prosecute any alcohol or drug abuse patient.[facility] HospitalIn the event this information is protected by the Federal Confidentiality of Alcohol and Drug Abuse Patient Records regulations: The Federal rules restrict any use of the information to criminally investigate or prosecute any alcohol or drug abuse patient.[facility] HospitalIn the event this information is protected by the Federal Confidentiality of Alcohol and Drug Abuse Patient Records regulations: The Federal rules restrict any use of the information to criminally investigate or prosecute any alcohol or drug abuse patient.[facility] HospitalIn the event this information is protected by the Federal Confidentiality of Alcohol and Drug Abuse Patient Records regulations: The Federal rules restrict any use of the information to criminally investigate or prosecute any alcohol or drug abuse patient.[facility] Care Teams (unrecognized sec tion and content) Patent Counsel Relationship Specialty Start Date End Date Myriam Cisneros MD [address] [place] [address] PCP - General Family Practice 05/22/13 Patent Counsel Relationship Specialty Start Date End Date Myriam Cisneros MD [address] [place] [address] PCP - General Family Practice 05/22/13 Patent Counsel Relationship Specialty Start Date End Date Myriam Cisneros MD [address] [place] [address] PCP - General Family Practice 05/22/13 Patent Counsel Relationship Specialty Start Date End Date Myriam Cisneros MD [address] [place] [address] PCP - General Family Practice 05/22/13 Patent Counsel Relationship Specialty Start Date End Date Myriam Cisneros MD [address] [place] [address] PCP - General Family Practice 05/22/13 Patent Counsel Relationship Specialty Start Date End Date Myriam Cisneros MD [address] [place] [address] PCP - General Family Medicine 05/22/13 Patent Counsel Relationship Specialty Start Date End Date Myriam Cisneros MD [address] [place] [address] PCP - General Family Medicine 05/22/13 Patent Counsel Relationship Specialty Start Date End Date Myriam Cisneros MD [address] [place] [address] PCP - General Family Medicine 05/22/13 Patent Counsel Relationship Specialty Start Date End Date Myriam Cisneros MD [address] [place] [address] PCP - General Family Medicine 05/22/13 Patent Counsel Relationship Specialty Start Date End Date Myriam Cisneros MD [address] [place] [address] PCP - General Family Medicine 05/22/13 Patent Counsel Relationship Specialty Start Date End Date Myriam Cisneros MD [address] [place] [address] PCP - General Family Medicine 05/22/13 Patent Counsel Relationship Specialty Start Date End Date Myriam Cisneros MD [address] [place] [address] PCP - General Family Medicine 05/22/13 Patent Counsel Relationship Specialty Start Date End Date Myriam Cisneros MD [address] [place] [address] PCP - General Family Medicine 05/22/13 Patent Counsel Relationship Specialty Start Date End Date Myriam Cisneros MD [address] [place] [address] PCP - General Family Medicine 05/22/13 Patent Counsel Relationship Specialty Start Date End Date Myriam Cisneros MD [address] [place] [id number] PCP - General Family Medicine 05/22/13 Patent Counsel Relationship Specialty Start Date End Date Myriam Cisneros MD [address] [place] [id number] PCP - General Family Medicine 05/22/13 Patent Counsel Relationship Specialty Start Date End Date Myriam Cisneros MD [address] [place] [id number] PCP - General Family Medicine 05/22/13 Patent Counsel Relationship Specialty Start Date End Date Myriam Cisneros MD [address] [place] [id number] PCP - General Family Medicine 05/22/13 Patent Counsel Relationship Specialty Start Date End Date Myriam Cisneros MD [address] [place] [id number] PCP - General Family Medicine 05/22/13 Reason for Visit (unrecogniz ed section and content) Reason Comments Yearly Exam Reason Comments [facility] Lab Results Reason Comments Follow Up Reason Comments Refill Request Reason Onset Date Comments Refill Request 04/25/2022 Reason Comments Follow Up Reason Comments Initial Consult Specialty Diagnoses / Procedures Referred By Contac t Referred To Contact Endocrinology Diagnoses Hypertension, unspecified type Procedures CONSULT TO ENDOCRINOLOGY OFFICE/OUTPATIENT [facility] 60-74 MINUTES Lisandra Cid, PERSONNEL GENERALIST MANAGER.KEYCASE ASSEMBLER [address] [id number] Referral ID Status Reason Start Date Expiration Date V isits Requested Visits Authorized [id number] Closed PCP Requested Referral 05/10/2022 05/10/2023 1 1 Reason Comments Follow Up B/p check Reason Comments nurse visit Bp check Reason Comments Forms Reason Comments [facility] Lab FOR RECORDS PERTAINING TO PATIENTS WHO ARE [...] BE BASED ON THE PRIMARY CLINICAL RECORDS. [email or web address] provides no warranty or guarantee of the accuracy or completeness of information in this document.
[2023-08-22 14:37] LABS: Hemoglobin A1c 5.4 % (3.8-5.6)
== END | disposition home or self-care (01) ==
PROVIDERS: Referring Provider Advanced Practice Midwife; Visit Provider Advanced Practice Midwife
DX: O16.1 Unspecified maternal hypertension, first trimester (principal); O09.299 Supervision of pregnancy with other poor reproductive or obstetric history, unspecified trimester; Z3A.00 Weeks of gestation of pregnancy not specified; Z86.32 Personal history of gestational diabetes
CPT/HCPCS: 36415; 80053; 83036; 85025; 86703; 86762; 86780; 86803; 86850; 86900; 86901; 87340

== ENCOUNTER 2023-08-30 17:54 | Emergency (ER) | payer OTHER, SELFPAY ==
[2023-08-30 17:55] VITALS: BP 145/93; PULSE 73; RESP 18; TEMP 36.8; O2SAT 100; BMI 29.7
--- NOTE | 2023-08-30 19:49 | US_ITS ---
STUDY: FIRST TRIMESTER OBSTETRICAL ULTRASOUND REASON FOR EXAM: Female, 33 years old vaginal bleeding LMP: TECHNIQUE: Transvaginal TECHNICAL QUALITY: Adequate. PRIOR ULTRASOUND: None. FINDINGS: There is visualization of a single gestational sac in a normal intrauterine position. The mean sac diameter (MSD) measures 5.4 cm, indicating an estimated gestational age (EGA) of 11 weeks, 2 days. The gestational sac shape is within normal limits. There is a visualized yolk sac. The yolk sac measures 3.7 mm. Placenta is anterior and low-lying. There is visualization of a live embryo. The crown-rump length (CRL) measures 4.4 cm, indicating an estimated gestational age (EGA) of 11 weeks, 0 days. There is demonstrated cardiac activity with a heart rate of 186 bpm. The estimated gestation age (EGA) by LMP is 11 weeks, 1 days. The estimated date of delivery (RAYMOND) by LMP is March 19, 2024. The estimated gestation age (EGA) by US is 11 weeks, 1 days. The estimated date of delivery (RAYMOND) by US is March 19, 2024. The uterus measures 8.7 x 9.3 x 7 cm. There is no demonstrated uterine fibroid. The cervix is closed. The right ovary measures 3.2 x 2.4 x 2.2 cm. There is no right ovarian cyst. There is no visualized right adnexal mass or complex lesion. Left ovary is not visualized. There is no adnexal mass There is no fluid in the cul de sac. US/Transvaginal w/Preg US IMPRESSION: Viable intrauterine gestation approximately 11 weeks gestational age. No significant abnormality Low-lying anterior placenta. Recommend follow-up studies to assess for interval changes Electronically Signed: Tereso Miller MD at 21:01 EDT ,
--- NOTE | 2023-08-30 19:54 | ED.VIS.FEGU ---
HPI <BETTINA Sauceda - Last Filed: 08/30/23 21:32> HPI - Female History of Present Illness Chief Complaint: Vag Bld, Preg Narrative Narrative: Patient presenting due to vaginal bleeding that started this evening. She reports that she had a sudden gush of blood that has since gone away, she has not had to change a pad. She reports that she is currently 11 weeks , she follows with [place], she is . She reports a similar episode 10 days ago and went to a different ED where an ultrasound and blood work was obtained, her workup was unremarkable. She denies any abdominal/pelvic pain, fever, chills, and urinary symptoms. PFSH <BETTINA Sauceda - Last Filed: 08/30/23 21:32> PFSH Medical History Gestational diabetes Gestational diabetes HTN (hypertension) care and examination Pre-eclampsia Pre-eclampsia superimposed on chronic hypertension Spotting Vaginal delivery Home Medications labetalol 200 mg tablet 200 mg PO BID 07/30/23 [History Last Taken Unknown] multivitamin no.47-iron fum 27 mg-folate no.1 1 mg-dha 300 mg capsule (PNV-DHA) 1 cap PO DAILY 07/30/23 [History Last Taken Unknown] ondansetron 4 mg disintegrating tablet 4 mg PO Q6H PRN nausea and vomiting #30 tabs 08/09/23 [Rx Last Taken Unknown] famotidine 20 mg tablet (Acid Controller) 20 mg PO DAILY 08/30/23 [History Last Taken Unknown] Allergy/AdvReac Type Severity Reaction Status Date / Time No Known Allergies Allergy Verified 08/30/23 17:55 Family History Grandmother Diabetes Kidney disease Grandfather Parkinsons disease Mother Scoliosis Father Hypertension Hyperlipidemia Uncle Hypertension Paternal Aunt Hypertension Paternal Surgical History History of oral surgery Social History adopted: No household members: spouse and children number of children: 1 current occupational status: employed current occupation: [employer] current occupational exposures/hazards: No pets and animals: Yes pets and animals: dog(s) history of recent travel: No sexually active: Yes Smoking Status: Never smoker alcohol intake: current alcohol intake frequency: a few times a month details: not while substance use type: does not use diet: vegetarian well-balanced diet: daily or most days caffeine: Yes Type: coffee Number of servings: 1 eating out: 1-3 times/week during the past year weight has: increased > 10 lbs ofelia/alevism: L[employer] seatbelt use: always do you feel safe at home: Yes additional social history: - Adelfo HOLLINS <BETTINA Sauceda - Last Filed: 08/30/23 21:32> ROS ED Constitutional Constitutional ED: Denies chills or fever(s) Cardiovascular Cardiovascular: Denies chest pain Respiratory/Chest Respiratory/Chest: Denies cough or dyspnea Gastrointestinal Gastrointestinal: Denies abdominal pain, nausea or vomiting Genitourinary Genitourinary ED: Denies dysuria, hematuria or urinary frequency Musculoskeletal Musculoskeletal: Denies arthralgias or myalgias Integumentary Denies rash Neurologic Neurologic: Denies weakness EXAM <BETTINA Sauceda - Last Filed: 08/30/23 21:32> Physical Exam Const Vital Signs: 08/30/23 17:55 08/30/23 21:07 08/30/23 21:26 Temperature 98.2 F 98.6 F 98.6 F Temperature Source Temporal Temporal Pulse Rate 73 65 65 Respiratory Rate 18 16 16 Blood Pressure 145/93 H 137/65 H 137/65 H Blood Pressure Mean 110 89 89 Pulse Ox 100 98 98 Oxygen Delivery Method Room Air Room Air Positive well nourished, well developed and no apparent distress General Appearance ED: well developed HEENT Reports normocephalic and head/scalp atraumatic Mouth ED: Yes moist mucous membranes normal Eyes PERRL and EOMs intact bilaterally Neck full ROM and supple Chest Wall inspection of chest normal Resp normal respiratory effort and clear to auscultation bilaterally Cardio regular rate and regular rhythm GI soft to palpation, non-tender, non-distended and no masses Back/Spine normal ROM and normal to inspection Extremity normal to inspection and full ROM Neuro oriented x3, CN's II-XII intact bilaterally, moves all extremities, no focal motor deficits and no sensory deficits noted Sensorium / Orientation: awake and alert Psych mental status grossly normal and thought process normal Skin no rashes or lesions noted and no wounds <Dr. Hung Payton MD - Last Filed: 08/30/23 21:17> Physical Exam Const Vital Signs: 08/30/23 17:55 08/30/23 21:07 08/30/23 21:26 Temperature 98.2 F 98.6 F 98.6 F Temperature Source Temporal Temporal Pulse Rate 73 65 65 Respiratory Rate 18 16 16 Blood Pressure 145/93 H 137/65 H 137/65 H Blood Pressure Mean 110 89 89 Pulse Ox 100 98 98 Oxygen Delivery Method Room Air Room Air MDM <BETTINA Sauceda - Last Filed: 08/30/23 21:32> [facility] MDM Narrative Medical decision making narrative: Patient presenting due to vaginal bleeding that started suddenly this evening. She is well-appearing and in no acute distress. She is and had a recent episode 10 days ago and had an unremarkable workup at a different ED. She is no longer bleeding and is not complaining of any abdominal/pelvic pain. Serum hCG quant and transvaginal ultrasound will be obtained. Vaginal ultrasound shows a viable intrauterine gestation, heartbeat in the 180s. Serum quant is over 100,000. Blood type is O+. She does have a follow-up appointment with OB on Saturday. Return instructions given and she will be discharged home in stable condition. Discussed pelvic rest. I have personally performed a face to face assessment of the patient and have reviewed the ROB Note. I performed a substantive portion of the visit including all aspects of the following. My antonio findings include: History is 33-year-old female G2, P1 Ab0. Currently about 11 weeks . Had some vaginal bleeding today. Similar event several weeks ago workup was negative at another facility. Denies any pain. No dysuria. Exam is [well-appearing 33-year-old female. Vital signs stable afebrile. HEENT exam normal. Lungs clear. Heart regular rhythm. Abdomen soft, nondistended normal bowel sounds no peritoneal signs. Moving all 4 extremities. Nontender no edema. Neurologically patient is awake alert no focal motor deficits.] Medical Decision Making [first trimester female with vaginal bleeding. Blood type is O+. From prior labs. Quant 100,302. Ultrasound showed a single live IUP in the uterus. With a heart rate of 186.] Other additions or changes: [None] Lab Data Attestation: I reviewed the patient's lab results. Labs: Laboratory Results - last 24 hr 08/30/23 20:00 HCG, Quant [id number] H Radiography Diagnostic Testing: Clinical Impression(s) from Imaging Studies Obstetrics Ultrasound 08/30/23 19:49 IMPRESSION: Viable intrauterine gestation approximately 11 weeks gestational age. No significant abnormality Low-lying anterior placenta. Recommend follow-up studies to assess for interval changes Electronically Signed: Tereso Miller MD at 21:01 EDT Reading Location ID and State: [facility] / [place] Tel , Service support , <Dr. Hung Payton MD - Last Filed: 08/30/23 21:17> [facility] MDM Narrative Medical decision making narrative: Patient presenting due to vaginal bleeding that started suddenly this evening. She is well-appearing and in no acute distress. She is and had a recent episode 10 days ago and had an unremarkable workup at a different ED. She is no longer bleeding and is not complaining of any abdominal/pelvic pain. Serum hCG quant and transvaginal ultrasound will be obtained. I have personally performed a face to face assessment of the patient and have reviewed the ROB Note. I performed a substantive portion of the visit including all aspects of the following. My antonio findings include: History is 33-year-old female G2, P1 Ab0. Currently about 11 weeks . Had some vaginal bleeding today. Similar event several weeks ago workup was negative at another facility. Denies any pain. No dysuria. Exam is [well-appearing 33-year-old female. Vital signs stable afebrile. HEENT exam normal. Lungs clear. Heart regular rhythm. Abdomen soft, nondistended normal bowel sounds no peritoneal signs. Moving all 4 extremities. Nontender no edema. Neurologically patient is awake alert no focal motor deficits.] Medical Decision Making [first trimester female with vaginal bleeding. Blood type is O+. From prior labs. Quant 100,302. Ultrasound showed a single live IUP in the uterus. With a heart rate of 186.] Other additions or changes: [None] Lab Data Labs: Laboratory Results - last 24 hr 08/30/23 20:00 HCG, Quant [id number] H Radiography Diagnostic Testing: Clinical Impression(s) from Imaging Studies Obstetrics Ultrasound 08/30/23 19:49 IMPRESSION: Viable intrauterine gestation approximately 11 weeks gestational age. No significant abnormality Low-lying anterior placenta. Recommend follow-up studies to assess for interval changes Electronically Signed: Tereso Miller MD at 21:01 EDT Reading Location ID and State: [address] [place] [address] Tel , Service support , Discharge Plan Triage Chief Complaint: Vag Bld, Preg ED Midlevel Provider: Gabby Gallegos ED Provider: Hung Payton Dx/Rx/DC Orders Clinical Impression: Threatened miscarriage, First trimester , Vaginal bleeding Instructions: Vaginal Bleeding During Prescriptions: No Action labetalol 200 mg tablet 200 mg PO BID PNV-DHA 27 mg iron-1 mg -300 mg capsule 1 cap PO DAILY ondansetron 4 mg tablet,disintegrating 4 mg PO Q6H PRN (Reason: nausea and vomiting) Qty: 30 3RF famotidine [Acid Controller] 20 mg tablet 20 mg PO DAILY Primary Care Provider: MYRIAM CISNEROS Referrals: MYRIAM CISNEROS MD [Primary Care Provider] - Activity Restrictions/Additional Instructions: Please follow-up with OB. Return for any worsening of your symptoms. Disposition Disposition: Home, Self Care Discharge Date/Time: 08/30/23 21:26
[2023-08-30 20:59] LABS: hCG Titer Quant., Serum 100302 mIU/mL (1-3)
[2023-08-30 21:07] VITALS: BP 137/65; PULSE 65; RESP 16; TEMP 37; O2SAT 98
[2023-08-30 21:26] VITALS: BP 137/65; PULSE 65; RESP 16; TEMP 37; O2SAT 98
== END 2023-08-30 21:26 | disposition home or self-care (01) ==
PROVIDERS: Physician Assistant; Emergency Provider Emergency Medicine; Visit Provider Emergency Medicine
DX: O20.0 Threatened abortion (principal); O16.1 Unspecified maternal hypertension, first trimester; Z3A.11 11 weeks gestation of pregnancy; Z79.899 Other long term (current) drug therapy
CPT/HCPCS: 76817; 84702; 99282; A4216

== ENCOUNTER → 2023-11-19 | Outpatient (CLI) | payer OTHER, SELFPAY ==
--- NOTE | 2023-11-19 14:25 | US_ITS ---
INDICATION: growth US q4 weeks d/t HTN controlled with meds EXAMINATION: Ultrasound US OB Follow-Up TECHNIQUE: Transabdominal pelvic ultrasound was performed. COMPARISON: Prior study dated: 08/30/2023 LMP: Unknown. Beta-hCG: Unknown. Provided EGA: 22 weeks 5 days FINDINGS: INTRAUTERINE GESTATION(s): Single. ESTIMATED GESTATIONAL AGE: 22 weeks 0 days ESTIMATED DUE DATE (RAYMOND): 03/24/2024 BIOMETRIC MEASUREMENTS: HEAD CIRCUMFERENCE: 19.84 cm which corresponds to 22 weeks 0 days. BIPARIETAL DIAMETER: 5.4 cm which corresponds to 22 weeks 3 days. ABDOMINAL CIRCUMFERENCE: 17.26 cm which corresponds to 22 weeks 1 day. FEMORAL LENGTH: 3.63 cm which corresponds to 21 weeks 4 days. HEART MOTION is 147 bpm. AMNIOTIC FLUID POCKET: 6.3 cm ESTIMATED WEIGHT: 468 Percentile 15%. BIOPHYSICAL PROFILE (BPP): Not assessed. PRESENTATION: Breech PLACENTA: Anterior. There is no placenta previa or abruption. CERVIX: The cervix is closed. Cervical length 4.2 cm. FREE FLUID: None. US/OB Limited With Biometrics IMPRESSION: Single live intrauterine of gestational age by ultrasound of 22 weeks 0 days. No acute abnormality. Electronically Signed: Earnest Trejo MD at 6:59 EDT ,
== END | disposition home or self-care (01) ==
LOC: OPUS 14:25
PROVIDERS: Referring Provider Advanced Practice Midwife; Visit Provider Advanced Practice Midwife
DX: O10.019 Pre-existing essential hypertension complicating pregnancy, unspecified trimester (principal); Z3A.00 Weeks of gestation of pregnancy not specified
CPT/HCPCS: 76816

== ENCOUNTER → 2023-12-14 | Outpatient (CLI) | payer OTHER, SELFPAY ==
[2023-12-14 08:53] LABS: Absolute Lymphocyte Count 1.77 X10^3/uL (0.83-4.51); Absolute Neutrophil Count 8.6 X10^3/uL (2.0-7.7); Basophil# 0.03 X10^3/uL; Basophil% 0.3 % (0-1); Eosinophil# 0.21 X10^3/uL; Eosinophils% 1.9 % (0-5); Hematocrit 32.6 % (37-47); Hemoglobin 10.5 g/dL (12.0-15.0); Lymphocyte # 1.77 X10^3/ul (0.83-4.51); Lymphocyte % 15.9 % (19-41); Mean Corp Hgb Conc 32.2 g/dL (32-36); Mean Corpuscular Hgb 28.4 pg (27.0-32.0); Mean Corpuscular Volume 88.1 fL (81-99); Mean Platelet Vol. 10.2 fl (6.2-12.0); Monocyte# 0.53 X10^3/uL; Monocyte% 4.7 % (0-10); NRBC Flagged by Analyzer 0 % (0-5); Neutrophil # 8.55 X10^3/uL (2.7-7.7); Neutrophil % 76.6 % (47-70); Platelet Count 245 K/mm3 (150-450); RBC Distribution Width CV 13.9 % (11.6-14.6); RBC Distribution Width SD 44.2 fl (35.1-43.9); White Blood Count 11.2 K/mm3 (4.4-11.0)
[2023-12-14 09:09] LABS: Glucose Challenge Gest 1H 50g 159 mg/dL (70-140)
[2023-12-16 14:02] LABS: HIV - WCH Non-Reactive (Nonreactive); Syphilis Antibodies Non-reactive
== END | disposition home or self-care (01) ==
PROVIDERS: Referring Provider Advanced Practice Midwife; Visit Provider Advanced Practice Midwife
DX: O09.92 Supervision of high risk pregnancy, unspecified, second trimester (principal); Z13.1 Encounter for screening for diabetes mellitus; Z3A.00 Weeks of gestation of pregnancy not specified
CPT/HCPCS: 36415; 82950; 85025; 86703; 86780; 86850; 86900; 86901

== ENCOUNTER → 2023-12-17 | Outpatient (CLI) | payer OTHER, SELFPAY ==
--- NOTE | 2023-12-17 14:28 | US_ITS ---
STUDY: SECOND AND THIRD TRIMESTER OBSTETRICAL ULTRASOUND REASON FOR EXAM: Female, 33 years old growth US q4 weeks d/t HTN controlled with meds LMP: June 13, 2023. TECHNIQUE: Transabdominal TECHNICAL QUALITY: Adequate. PRIOR ULTRASOUND: Comparison is made with prior study dated November 19, 2023. FINDINGS: There is a single intrauterine fetus. The fetus is in a cephalic presentation. There is demonstrated cardiac activity with a heart rate of 141 bpm. There is a normal amniotic fluid volume. The largest amniotic fluid pocket measures 6.3 cm. The amniotic fluid index (JABARI) is 18.8 cm. The placenta is anterior in location and is not low lying. There are Grade 0 placental changes. The cervix measures 3.8 cm in length. The bilateral adnexal regions are normal. BIOMETRY: BPD: 6.7 cm: 27 weeks, 0 days HC: 24.19 cm: 26 weeks, 2 days AC: 21.61 cm: 26 weeks, 1 days FL: 4.77 cm: 26 weeks, 0 days CI: 80% FL/BPD: 71% FL/HC: FL/AC: 22% HC/AC: 1.12 age by current US: 26 weeks, 1 days. RAYMOND by current US: March 23, 2024. Estimated weight: 907 grams, +/- 136 grams, 21 %. age by prior US: 27 weeks, 0 days. RAYMOND by prior US: March 24, 2024. Age by LMP: 26 weeks, 5 days. RAYMOND by LMP: March 19, 2024. US/OB Limited With Biometrics IMPRESSION: Single live intrauterine gestation with mean gestational age of 26 weeks. The measurements obtained today fall within normal expected range. Electronically Signed: Dl Stevens MD at 9:32 EDT ,
== END | disposition home or self-care (01) ==
LOC: OPUS 14:28
PROVIDERS: Referring Provider Advanced Practice Midwife; Visit Provider Advanced Practice Midwife
DX: O10.912 Unspecified pre-existing hypertension complicating pregnancy, second trimester (principal); Z3A.26 26 weeks gestation of pregnancy
CPT/HCPCS: 76816

== ENCOUNTER → 2023-12-25 | Outpatient (CLI) | payer OTHER, SELFPAY ==
[2023-12-25 08:26] LABS: Glucose GTT-Gestation. Fasting 93 mg/dL (<105)
[2023-12-25 08:54] LABS: Glucose GTT-Gestational 1 Hr 190 mg/dL (<190)
[2023-12-25 10:04] LABS: Glucose GTT-Gestational 2 Hr 143 mg/dL (<165)
[2023-12-25 12:06] LABS: Glucose GTT-Gestational 3 Hr 116 L (<145)
== END | disposition home or self-care (01) ==
LOC: LAB 06:50
PROVIDERS: Referring Provider Advanced Practice Midwife; Visit Provider Advanced Practice Midwife
DX: Z13.1 Encounter for screening for diabetes mellitus (principal)
CPT/HCPCS: 36415; 82951; 82952

== ENCOUNTER → 2024-01-14 | Outpatient (CLI) | payer OTHER, SELFPAY ==
--- NOTE | 2024-01-14 14:28 | US_ITS ---
EXAM: US , LIMITED CLINICAL INDICATION: growth US d/t HTN controlled with meds TECHNIQUE: Real-time limited ultrasound of the maternal uterus with image documentation. COMPARISON: 12/17/2023. FINDINGS: FETUS: Single intrauterine gestation. GESTATIONAL AGE: Composite gestational age is 30 weeks. RAYMOND: 03/24/2024. EFW: Estimated weight is 1545 g corresponding to the 25th percentile. BPD: 30 weeks four days. HC: 30 weeks two days. AC: 29 weeks six days. FL: 30 weeks four days. POSITION: Breech presentation. HEART RATE: heart rate is 137 bpm. PLACENTA: Placenta is anterior without placenta previa. AMNIOTIC FLUID: Amniotic fluid index is 17.6 cm. CERVIX: Cervix not visualized. US/OB Limited With Biometrics IMPRESSION: Single alive intrauterine at approximately 30 weeks. Appropriate interval growth since previous exam. No specific abnormality identified. Electronically Signed: Jimmy Holland MD at 5:06 EDT ,
== END | disposition home or self-care (01) ==
PROVIDERS: Referring Provider Advanced Practice Midwife; Visit Provider Advanced Practice Midwife
DX: O16.9 Unspecified maternal hypertension, unspecified trimester (principal); Z79.899 Other long term (current) drug therapy
CPT/HCPCS: 76816

== ENCOUNTER → 2024-02-06 | Outpatient (CLI) | payer OTHER, SELFPAY ==
[2024-02-06 15:07] LABS: Absolute Lymphocyte Count 1.84 X10^3/uL (0.83-4.51); Absolute Neutrophil Count 8.2 X10^3/uL (2.0-7.7); Basophil# 0.03 X10^3/uL; Basophil% 0.3 % (0-1); Eosinophil# 0.14 X10^3/uL; Eosinophils% 1.3 % (0-5); Hematocrit 31.6 % (37-47); Hemoglobin 10.1 g/dL (12.0-15.0); Lymphocyte # 1.84 X10^3/ul (0.83-4.51); Lymphocyte % 16.5 % (19-41); Mean Corpuscular Hgb 26.7 pg (27.0-32.0); Mean Corpuscular Volume 83.6 fL (81-99); Mean Platelet Vol. 11.2 fl (6.2-12.0); Monocyte# 0.81 X10^3/uL; Monocyte% 7.3 % (0-10); NRBC Flagged by Analyzer 0 % (0-5); Neutrophil # 8.24 X10^3/uL (2.7-7.7); Neutrophil % 73.9 % (47-70); Platelet Count 268 K/mm3 (150-450); RBC Distribution Width CV 13.8 % (11.6-14.6); RBC Distribution Width SD 42.1 fl (35.1-43.9); Red Blood Count 3.78 M/mm3 (4.2-5.4); White Blood Count 11.1 K/mm3 (4.4-11.0)
[2024-02-06 15:42] LABS: ALB/GLOB Ratio 0.6 RATIO (0.9-2.4); AST(SGOT) 19 U/L (15-37); Alanine Aminotransfer ALT/SGPT 20 U/L (13-56); Albumin, Serum 2.3 g/dL (3.2-5.0); Alkaline Phosphatase 108 U/L (45-117); Anion Gap 6 (5-15); BUN 9 mg/dL (7-18); BUN/Creat Ratio 15.9 RATIO (10-20); Calcium,Total 8.7 mg/dL (8.5-10.1); Chloride 106 mmol/L (98-107); Creatinine, Serum 0.57 mg/dL (0.55-1.02); EST Glomerular Filtration Rate 132 mL/min (>60); Est Glom Filt Rate - Afr Amer 159 mL/min (>60); Globulin 4.1 g/dL (2.2-4.2); Glucose 80 mg/dL (74-106); Protein, Total 6.4 g/dL (6.4-8.2); Sodium Level 137 mmol/L (136-145)
[2024-02-06 18:19] LABS: Protein, Urine (Random) 7.5 mg/dL (<11.9); Protein:Creat Ratio 421 mg/g CRE (0-200)
== END | disposition home or self-care (01) ==
PROVIDERS: Obstetrics & Gynecology; Referring Provider Advanced Practice Midwife; Visit Provider Advanced Practice Midwife
DX: I10 Essential (primary) hypertension (principal)
CPT/HCPCS: 36415; 80053; 82570; 84156; 85025

== ENCOUNTER → 2024-02-11 | Outpatient (CLI) | payer OTHER, SELFPAY ==
[2024-02-11 12:56] LABS: Absolute Neutrophil Count 8.9 X10^3/uL (2.0-7.7); Basophil# 0.04 X10^3/uL; Basophil% 0.3 % (0-1); Eosinophil# 0.16 X10^3/uL; Eosinophils% 1.3 % (0-5); Hematocrit 32.1 % (37-47); Hemoglobin 10.2 g/dL (12.0-15.0); Lymphocyte % 16.5 % (19-41); Mean Corp Hgb Conc 31.8 g/dL (32-36); Mean Corpuscular Hgb 26.2 pg (27.0-32.0); Mean Corpuscular Volume 82.5 fL (81-99); Mean Platelet Vol. 11.7 fl (6.2-12.0); Monocyte# 0.99 X10^3/uL; Monocyte% 8.2 % (0-10); NRBC Flagged by Analyzer 0 % (0-5); Neutrophil # 8.85 X10^3/uL (2.7-7.7); Neutrophil % 73.1 % (47-70); Platelet Count 280 K/mm3 (150-450); RBC Distribution Width CV 14.1 % (11.6-14.6); RBC Distribution Width SD 41.7 fl (35.1-43.9); Red Blood Count 3.89 M/mm3 (4.2-5.4); White Blood Count 12.1 K/mm3 (4.4-11.0)
[2024-02-11 13:29] LABS: ALB/GLOB Ratio 0.5 RATIO (0.9-2.4); AST(SGOT) 17 U/L (15-37); Alanine Aminotransfer ALT/SGPT 19 U/L (13-56); Albumin, Serum 2.3 g/dL (3.2-5.0); Alkaline Phosphatase 108 U/L (45-117); Anion Gap 8 (5-15); BUN 8 mg/dL (7-18); BUN/Creat Ratio 15.8 RATIO (10-20); Calcium,Total 8.8 mg/dL (8.5-10.1); Chloride 105 mmol/L (98-107); Creatinine, Serum 0.51 mg/dL (0.55-1.02); EST Glomerular Filtration Rate 150 mL/min (>60); Est Glom Filt Rate - Afr Amer 182 mL/min (>60); Globulin 4.2 g/dL (2.2-4.2); Glucose 78 mg/dL (74-106); Potassium 4.1 mmol/L (3.5-5.1); Protein, Total 6.5 g/dL (6.4-8.2); Sodium Level 136 mmol/L (136-145)
[2024-02-11 16:27] LABS: Protein, Urine (Random) 20.9 mg/dL (<11.9); Protein:Creat Ratio 367 mg/g CRE (0-200)
== END | disposition home or self-care (01) ==
LOC: LAB 12:01 → LABSPEC 14:18
PROVIDERS: Referring Provider Nurse Practitioner Women's Health; Visit Provider Nurse Practitioner Women's Health
DX: I10 Essential (primary) hypertension (principal)
CPT/HCPCS: 36415; 80053; 82570; 84156; 85025

== ENCOUNTER → 2024-02-12 | Outpatient (CLI) | payer OTHER, SELFPAY ==
--- NOTE | 2024-02-12 14:12 | US_ITS ---
STUDY: SECOND AND THIRD TRIMESTER OBSTETRICAL ULTRASOUND - LIMITED REASON FOR EXAM: Female, 33 years old growth US q4 weeks d/t HTN controlled with meds LMP: June 13, 2023. PRIOR ULTRASOUND: Comparison is made with prior study January 14, 2024. TECHNIQUE: Transabdominal TECHNICAL QUALITY: Adequate. FINDINGS: There is a single intrauterine fetus. The fetus is in a cephalic presentation. There is demonstrated cardiac activity with a heart rate of 150 bpm. There is a normal amniotic fluid volume. The largest amniotic fluid pocket measures 6.0 cm. The amniotic fluid index (JABARI) is 17.8 cm. The placenta is anterior in location and is not low lying. There are Grade 1 placental changes. BIOMETRY: BPD: 8.5 cm: 34 weeks, 2 days HC: 31.2 cm: 34 weeks, 6 days AC: 28.7 cm: 32 weeks, 5 days FL: 6.6 cm: 34 weeks, 1 days Age by LMP: 34 weeks, 6 days. RAYMOND by LMP: March 19, 2024. age by prior US: 34 weeks, 1 days. RAYMOND by prior US: March 24, 2024. age by current US: 34 weeks, 3 days. RAYMOND by current US: March 22, 2024. Estimated weight: 2213 grams, +/- 332 grams, 15 percentile. IMPRESSION: Single live intrauterine gestation with mean gestational age of 34 weeks and 1 day. The measurements obtained today fall within the normal expected range. Electronically Signed: Dl Stevens MD at 10:14 EDT , STUDY: OBSTETRICAL ULTRASOUND - BIOPHYSICAL PROFILE REASON FOR EXAM: Female, 33 years old growth US q4 weeks d/t HTN controlled with meds LMP: June 13, 2023. PRIOR ULTRASOUND: None. TECHNIQUE: Transabdominal TECHNICAL QUALITY: Adequate. FINDINGS: BIOPHYSICAL PROFILE: Breathing Movements (FBM): 2 Gross Body Movements (GBM): 2 Tone (FT): 2 Amniotic Fluid Volume (AFV): 2 TOTAL SCORE: US/OB Limited With Biometrics IMPRESSION: Normal biophysical profile of 01/15. Electronically Signed: Dl Stevens MD at 10:15 EDT ,
== END | disposition home or self-care (01) ==
LOC: OPUS 14:08
PROVIDERS: Referring Provider Advanced Practice Midwife; Visit Provider Advanced Practice Midwife
DX: O11.9 Pre-existing hypertension with pre-eclampsia, unspecified trimester (principal)
CPT/HCPCS: 76816; 76819

== ENCOUNTER → 2024-02-18 | Outpatient (CLI) | payer OTHER, SELFPAY ==
[2024-02-18 16:13] LABS: Absolute Lymphocyte Count 2.02 X10^3/uL (0.83-4.51); Absolute Neutrophil Count 8.1 X10^3/uL (2.0-7.7); Basophil# 0.04 X10^3/uL; Basophil% 0.4 % (0-1); Eosinophil# 0.13 X10^3/uL; Eosinophils% 1.2 % (0-5); Hematocrit 32.6 % (37-47); Hemoglobin 10.4 g/dL (12.0-15.0); Lymphocyte # 2.02 X10^3/ul (0.83-4.51); Mean Corp Hgb Conc 31.9 g/dL (32-36); Mean Corpuscular Hgb 26.3 pg (27.0-32.0); Mean Corpuscular Volume 82.5 fL (81-99); Mean Platelet Vol. 11.7 fl (6.2-12.0); Monocyte# 0.89 X10^3/uL; Monocyte% 7.9 % (0-10); NRBC Flagged by Analyzer 0 % (0-5); Neutrophil # 8.08 X10^3/uL (2.7-7.7); Neutrophil % 71.7 % (47-70); Platelet Count 279 K/mm3 (150-450); RBC Distribution Width CV 14.2 % (11.6-14.6); RBC Distribution Width SD 41.9 fl (35.1-43.9); Red Blood Count 3.95 M/mm3 (4.2-5.4); White Blood Count 11.3 K/mm3 (4.4-11.0)
[2024-02-18 16:35] LABS: Protein, Urine (Random) 8.6 mg/dL (<11.9); Protein:Creat Ratio 483 mg/g CRE (0-200)
[2024-02-18 16:47] LABS: ALB/GLOB Ratio 0.5 RATIO (0.9-2.4); AST(SGOT) 17 U/L (15-37); Alanine Aminotransfer ALT/SGPT 22 U/L (13-56); Albumin, Serum 2.3 g/dL (3.2-5.0); Alkaline Phosphatase 116 U/L (45-117); Anion Gap 6 (5-15); BUN 7 mg/dL (7-18); BUN/Creat Ratio 12.2 RATIO (10-20); Calcium,Total 8.8 mg/dL (8.5-10.1); Chloride 105 mmol/L (98-107); Creatinine, Serum 0.58 mg/dL (0.55-1.02); EST Glomerular Filtration Rate 129 mL/min (>60); Est Glom Filt Rate - Afr Amer 156 mL/min (>60); Globulin 4.3 g/dL (2.2-4.2); Glucose 89 mg/dL (74-106); Potassium 3.9 mmol/L (3.5-5.1); Protein, Total 6.6 g/dL (6.4-8.2); Sodium Level 135 mmol/L (136-145)
== END | disposition home or self-care (01) ==
PROVIDERS: Referring Provider Advanced Practice Midwife; Visit Provider Advanced Practice Midwife
DX: O11.3 Pre-existing hypertension with pre-eclampsia, third trimester (principal); O09.93 Supervision of high risk pregnancy, unspecified, third trimester; Z3A.35 35 weeks gestation of pregnancy
CPT/HCPCS: 36415; 80053; 82570; 84156; 85025; 87081

== ENCOUNTER 2024-02-19 15:31 | Outpatient (CLI) | payer OTHER, SELFPAY ==
[2024-02-19 16:04] VITALS: BMI 31.4
[2024-02-19] MEDS: Betamethasone/Betamethasone 30 MG/5 ML Vial 12 MG IM (16:22)
--- NOTE | 2024-03-13 09:29 | OB.TRI.PN ---
Progress Notes Date of Service: 03/20/24 Progress Note: celestone given at 35 weeks for chtn with superimposed preeclampsia and prematurity Assessment & Plan (1) 35 weeks gestation of : (2) Chronic hypertension with superimposed preeclampsia: COMMENT: new onset proteinuria, discussed with patient bp parameters, symptoms, consider steroid administration. recommend weekly labs and delivery at 37 weeks, weekly BPP and weekly NST, growth 15%
== END 2024-02-19 16:43 | disposition home or self-care (01) ==
LOC: WPOUT 15:36 → WP 15:36
PROVIDERS: Referring Provider Obstetrics & Gynecology; Visit Provider Obstetrics & Gynecology
DX: O14.93 Unspecified pre-eclampsia, third trimester (principal); Z3A.35 35 weeks gestation of pregnancy
CPT/HCPCS: 96372; 99221; G0378; J0702

== ENCOUNTER 2024-02-20 15:25 | Outpatient (CLI) | payer OTHER, SELFPAY ==
[2024-02-20 15:34] VITALS: BMI 31.6
[2024-02-20] MEDS: Betamethasone/Betamethasone 30 MG/5 ML Vial 12 MG IM (16:00)
[2024-02-21 00:08] VITALS: BP 113/68; PULSE 71
== END 2024-02-20 16:05 | disposition home or self-care (01) ==
LOC: WPOUT 15:30 → WP 15:30
PROVIDERS: Referring Provider Obstetrics & Gynecology; Visit Provider Obstetrics & Gynecology
DX: O14.93 Unspecified pre-eclampsia, third trimester (principal); Z3A.35 35 weeks gestation of pregnancy
CPT/HCPCS: 96372; 99221; G0378; J0702

== ENCOUNTER → 2024-02-20 | Outpatient (CLI) | payer OTHER, SELFPAY ==
--- NOTE | 2024-02-20 14:24 | US_ITS ---
STUDY: OBSTETRICAL ULTRASOUND - BIOPHYSICAL PROFILE REASON FOR EXAM: Female, 33 years old hypertension -- 38 Weeks LMP: June 13, 2023. PRIOR ULTRASOUND: Comparison is made with prior study February 12, 2024. TECHNIQUE: Transabdominal TECHNICAL QUALITY: Adequate. FINDINGS: There is a single intrauterine fetus. The fetus is in a cephalic presentation. There is demonstrated cardiac activity with a heart rate of 135 bpm. There is a normal amniotic fluid volume. The largest amniotic fluid pocket measures 4.5 cm. The amniotic fluid index (JABARI) is 13 cm. The placenta is anterior in location and is not low lying. There are Grade 1 placental changes. Age by LMP: 36 weeks, 0 days. RAYMOND by LMP: March 19, 2024. BIOPHYSICAL PROFILE: Breathing Movements (FBM): 2 Gross Body Movements (GBM): 2 Tone (FT): 2 Amniotic Fluid Volume (AFV): 2 TOTAL SCORE: US/Biophysical Prof W/O Non Stres IMPRESSION: Normal biophysical profile of 01/15. Electronically Signed: Dl Stevens MD at 8:25 EDT ,
== END | disposition home or self-care (01) ==
LOC: US 14:23
PROVIDERS: Referring Provider Nurse Practitioner Women's Health; Visit Provider Nurse Practitioner Women's Health
DX: O11.9 Pre-existing hypertension with pre-eclampsia, unspecified trimester (principal)
CPT/HCPCS: 76819

== ENCOUNTER 2024-02-28 20:28 | Inpatient (IN) | payer OTHER, SELFPAY ==
[2024-02-28] VITALS (8 sets, daily range): BP systolic 119–143; BP diastolic 71–92; PULSE 66–86; RESP 16; TEMP 36.5–36.9; O2SAT 97–99; BMI 31.6
--- NOTE | 2024-02-28 08:03 | OB.TRI.PN_ITS ---
Progress Notes Date of Service: 02/28/24 Progress Note: Patient presents for triage evaluation secondary to NST. On hold for IOL for today due to pre e/HTN. FHT: 135 Moderate variability reactive no decelerations category I tracing [place]: none Contractions Assessment and plan: bp stable, Reactive NST, reassuring maternal and status patient to remain on unit until IOL can be started later today. See problem list details for additional plan information. Assessment & Plan (1) Chronic hypertension with superimposed preeclampsia: COMMENT: new onset proteinuria, discussed with patient bp parameters, symptoms, consider steroid administration. recommend weekly labs and delivery at 37 weeks, weekly BPP and weekly NST, growth 15% (2) Abnormal glucose affecting : COMMENT: passed 3 hour (3) History of pre-eclampsia in prior , currently : COMMENT: labs with NOB (4) Supervision of high-risk : QUALIFIERS: Trimester: second trimester Qualified Code(s): O09.92 - Supervision of high risk , unspecified, second trimester COMMENT: PRR, , RAYMOND 03/19/24, boy, MIO Sow, Adelfo (5) : QUALIFIERS: Weeks of gestation: 36 weeks Qualified Code(s): Z3A.36 - 36 weeks gestation of COMMENT: GBS neg, normal anatomy, NIPT low risk, declined ntd & carrier testing & AFP (6) Hx of gestational diabetes in prior , currently : COMMENT: A1C normal (7) Chronic hypertension: COMMENT: growth US q4 weeks controlled with labetolol; baseline labs with NOB. delivery by 37-38 weeks weekly nsts starting 32 weeks.
--- NOTE | 2024-02-28 17:37 | HP.PCM.OB_ITS ---
HPI - General General Date of Admission: 02/28/24 Date of Service: 02/28/24 HPI Jenni JACINTO, is a 33 F 2/ 37.1 weeks who presents to unit for IOL for preeclampsia. Maternal Data Information RAYMOND Calculator Estimated Delivery Date Method Current WG Current Estimate 03/19/24 LMP (Certain) 37w 1d Final RAYMOND: 03/19/24 Final RAYMOND Source: US >20 weeks Gestational age: [facility] Medical History Spotting Dyspareunia in female care and examination Vaginal delivery Pre-eclampsia superimposed on chronic hypertension Pre-eclampsia Gestational diabetes Gestational diabetes HTN (hypertension) Home Medications ?Medication ?Instructions ?Recorded ?Last Taken ?Type labetalol 200 mg tablet 200 mg PO BID 07/30/23 Unknown History multivitamin no.47-iron fum 27 1 cap PO DAILY 07/30/23 Unknown History mg-folate no.1 1 mg-dha 300 mg capsule (PNV-DHA) famotidine 20 mg tablet (Acid 20 mg PO DAILY 08/30/23 Unknown History Controller) doxylamine succinate 25 mg tablet 25 mg PO QHS PRN sleep 10/01/23 Unknown History (Unisom (doxylamine)) pyridoxine (vitamin B6) 10 mg 10 mg PO DAILY 10/01/23 Unknown History tablet Allergy/AdvReac Type Severity Reaction Status Date / Time No Known Allergies Allergy Verified 02/28/24 07:34 Family History Grandmother Diabetes Kidney disease Grandfather Parkinsons disease Mother Scoliosis Father Hypertension Hyperlipidemia Uncle Hypertension Paternal Aunt Hypertension Paternal Surgical History History of oral surgery Social History adopted: No household members: spouse and children number of children: 1 current occupational status: employed 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 current occupational exposures/hazards: No pets and animals: Yes pets and animals: dog(s) history of recent travel: No sexually active: Yes Smoking Status: Never smoker alcohol intake: current alcohol intake frequency: a few times a month details: not while substance use type: does not use diet: vegetarian well-balanced diet: daily or most days caffeine: Yes Type: coffee Number of servings: 1 eating out: 1-3 times/week during the past year weight has: increased > 10 lbs ofelia/christian: Confucianism seatbelt use: always do you feel safe at home: Yes additional social history: - Adelfo History 3 Elective abortions Hx Para 1 Spontaneous abortions 1 Hx # Term Pregnancies 1 Ectopic pregnancies Hx # Pregnancies Multiple births # of living children 1 Past Pregnancies Del. Date Name GA/Weeks Outcome Route Bth Weight Infant Gen Labor Lgth Anesthesia Del Locatn Provider FOB 06/09/21 Sow 38 live - full term 5#13oz Male epidu ral [facility] Marty Emanuel Delivery Date: 06/09/21 Last Updated by: Nicolasa Gunter IOL preeclamsia Visit Details Expected Delivery Route/Plan Labor Preferences- CB/BF classes: [] labor support person: [] labor intervention preferences: [] pain management options preferred: [] cut cord/dad catch: [] : [] PP control planned: [] discussed possible routes of delivery and associated risks: [] special requests: [] Plans Covid status: [] Flu vaccine: [] Tdap vaccine: [] Rhogam: [] LARC form signed: [] Problem list reviewed and updated with the most current plan of care details and appropriate orders placed. Relevant counseling for the gestational age provided. Continue routine care and follow up unless otherwise noted in visit notes/problem list details OB Flowsheet Initial Weight: 178 lb Date -?-?-?-?-?-?-?-?-?-?-?-?- EGA Weight BP Urine Prot -?-?-?-?-?-?-?-?-?-?-?-?- Glucose FHR FuHt Pres Dilation -?-?-?-?-?-?-?-?-?-?-?-?- Effaced St Visit Note 08/09/23 -?-?-?-?-?-?-?-?-?-?-?-?- 8w 1d 178 lb 4 oz (+4 oz) 138/74 -?-?-?-?-?-?-?-?-?-?-?-?- 168 -?-?-?-?-?-?-?-?-?-?-?-?- KW- CRL cons wit h dates. NIPT requested. 09/03/23 -?-?-?-?-?-?-?-?-?-?-?-?- 11w 5d 175 lb 2 oz (-2 lb 14 oz) 134/75 -?-?-?-?-?-?-?-?-?-?-?-?- -?-?-?-?-?-?-?-?-?-?-?-?- kw-no vb/crampin g today. was in ER over weekend for bleeding and seems to be correlating with BMs. has had US in ER. to start asa. kw-no vb/cramping today. was in ER over weekend for bleeding and seems to be correlating with BMs. has had US in ER. to start asa for chronic htn. fht and movement noted whit handheld US today 10/01/23 -?-?-?-?-?-?-?-?-?-?-?-?- 15w 5d 173 lb (-5 lb) 132/79 -?-?-?-?-?-?-?-?-?-?-?-?- 155 -?-?-?-?-?-?-?-?-?-?-?-?- SM- no vb crmapi ng nausea improved 10/18/23 -?-?-?-?-?-?-?-?-?-?-?-?- 18w 1d 174 lb (-4 lb) 131/65 Negative -?-?-?-?-?-?-?-?-?-?-?-?- Negative 145 -?-?-?-?-?-?-?-?-?-?-?-?- KW- no cramping/ lof. good fm. noticed some brown spotting over the last couple days. none today. Spec exam normal and no blood noted in vagina. cervix closed. RH+ 10/31/23 -?-?-?-?-?-?-?-?-?-?-?-?- 20w 0d 176 lb (-2 lb) 124/72 Negative -?-?-?-?-?-?-?-?-?-?-?-?- Negative 139 -?-?-?-?-?-?-?-?-?-?-?-?- MH-NO VB. Abhilash Yobani SloanMicha Denies concerns 11/26/23 -?-?-?-?-?-?-?-?-?-?-?-?- 23w 5d 177 lb (-16 oz) 133/85 Negative -?-?-?-?-?-?-?-?-?-?-?-?- Negative 145 25 -?-?-?-?-?-?-?-?-?-?-?-?- kw- no vb/crampi ng. good fm. monthly growth scans. 28 wk labs discussed kw- no vb/cramping. good fm. monthly growth scans for chronic HTN. 28 wk labs discussed 12/23/23 -?-?-?-?-?-?-?-?-?-?-?-?- 27w 4d 177 lb 8 oz (-8 oz) 115/73 Negative -?-?-?-?-?-?-?-?-?-?-?-?- Negative 145 28 -?-?-?-?-?-?-?-?-?-?-?-?- JV- failed one hr and has 3 hr scheduled. 01/10/24 -?-?-?-?-?-?-?-?-?-?-?-?- 30w 1d 179 lb (+16 oz) 118/68 -?-?-?-?-?-?-?-?-?-?-?-?- 135 30 -?-?-?-?-?-?-?-?-?-?-?-?- LC- passed 3 pamela subramanian fm, no ctx/lof/vb. 01/21/24 -?-?-?-?-?-?-?-?-?-?-?-?- 31w 5d 178 lb (+0 oz) 116/74 Negative -?-?-?-?-?-?-?-?-?-?-?-?- Negative 120 -?-?-?-?-?-?-?-?-?-?-?-?- SM- no vb lof go od fm no regular ctx reactive NST 01/30/24 -?-?-?-?-?-?-?-?-?-?-?-?- 33w 0d 179 lb 4 oz (+1 lb 4 oz) 129/82 Negative -?-?-?-?-?-?-?-?-?-?-?-?- Negative 130 -?-?-?-?-?-?-?-?-?-?-?-?- KW- NST only. re active 02/06/24 -?-?-?-?-?-?-?-?-?-?-?-?- 34w 0d 180 lb (+2 lb) 143/87 161/92 143/76 Trace -?-?-?-?-?-?-?-?-?-?-?-?- Negative 125 34 -?-?-?-?-?-?-?-?-?-?-?-?- KW- NST reactive . no vb/cramping. pre e labs ordered KW- NST reactive. no vb/cram ping. pre e labs ordered. daily BPs - bring tues to review 02/11/24 -?-?-?-?-?-?-?-?-?-?-?-?- 34w 5d 181 lb (+3 lb) 122/70 Negative -?-?-?-?-?-?-?-?-?-?-?-?- Negative 135 35 -?-?-?-?-?-?-?-?-?-?-?-?- MH-No VB, LOF. G ood Fm. No headaches, vision changes. BPs at home wnl. Rpt pre E labs. Has NST/growth US tomorrow AM 02/12/24 -?-?-?-?-?-?-?-?-?-?-?-?- 34w 6d 181 lb (+3 lb) 125/83 -?-?-?-?-?-?-?-?-?-?-?-?- 140 -?-?-?-?-?-?-?-?-?-?-?-?- MH-NST only reac tive. Has US today also. 02/18/24 -?-?-?-?-?-?-?-?-?-?-?-?- 35w 5d 182 lb 2 oz (+4 lb 2 oz) 124/81 Negative -?-?-?-?-?-?-?-?-?-?-?-?- Negative 120 35 1 -?-?-?-?-?-?-?-?-?-?-?-?- 60 -3 KW- no vb/ lof/reg ctx. good fm. repeat labs today. IOL set up for 37 weeks. growth last week at 15% KW- no vb/lof/reg ctx. good fm. repeat labs today. IOL set up for 37 weeks. growth last week at 15%. GBS today 02/25/24 -?-?-?-?-?-?-?-?-?-?-?-?- 36w 5d 184 lb 8 oz (+6 lb 8 oz) 139/88 Negative -?-?-?-?-?-?-?-?-?-?-?-?- Negative 130 -?-?-?-?-?-?-?-?-?-?-?-?- JV- reactive NST . pt wants IOL saturday morning. She has signed her IOL papers. Has BPP on saturday and asks if may skip it since being induced NST FHR Rate Baby A Baseline: 130 Variability:: Moderate Accelerations:: 15 x 15 Decelerations:: None NST Reactive:: Yes Uterine Activity:: none ROS Constitutional Constitutional: Denies change in weight, fatigue, fever(s), headache(s), poor appetite or weakness Eyes Eyes: Denies blurry vision, change in vision, floaters, seeing flashes or spots in vision ENT HEENT: Denies dizziness, headache(s), loss taste/smell or sore throat Cardiovascular Cardiovascular: Denies chest pain, dizziness, dyspnea, irregular heart rhythm, lightheadedness, palpitations or rapid heart rate Respiratory/Chest Respiratory/Chest: Denies change in mental status, chest tightness, cough, dyspnea or breast pain Gastrointestinal Gastrointestinal: Denies anorexia, chewing difficulty, constipation, diarrhea or weight changes Genitourinary Genitourinary: Denies difficulty urinating, dysuria, flank pain, genital pain, urinary frequency or urinary urgency Musculoskeletal Musculoskeletal: Denies back pain, difficulty walking, extremity pain, joint pain, muscle cramps or muscle weakness Integumentary Integumentary: Denies lesions or unusual bruising Neurologic Neurologic: Denies abnormal movements, abnormal speech, dizziness, numbness, seizure-like activity, syncope or weakness Psychiatric Psychiatric: Denies behavioral changes, change in appetite, confusion, depression, homicidal ideation, suicidal ideation or suicidal thoughts Endocrine Endocrinology: Denies excessive sweating, polydipsia or polyuria Hematologic/Lymphatic Hematologic/Lymphatic: Denies anemia Allergic/Immunologic Allergic/Immunologic: Denies itchy eyes, lip swelling, throat swelling, tongue swelling or wheezing Vital Signs Vital Signs Vital Signs: 02/28/24 07:27 02/28/24 07:27 02/28/24 07:27 Temperature Temperature Source Temporal Pulse Rate Respiratory Rate 16 Blood Pressure BP Systolic BP Diastolic Pulse Ox 97 02/28/24 07:27 02/28/24 07:28 02/28/24 07:28 Temperature 98.5 F Temperature Source Pulse Rate 73 Respiratory Rate Blood Pressure 119/76 BP Systolic 119 BP Diastolic 76 Pulse Ox 02/28/24 07:28 02/28/24 13:33 02/28/24 13:33 Temperature Temperature Source Pulse Rate 86 Respiratory Rate Blood Pressure 137/71 H BP Systolic 137 BP Diastolic 71 Pulse Ox 97 02/28/24 16:51 02/28/24 16:51 02/28/24 16:51 Temperature Temperature Source Tympanic Pulse Rate 71 Respiratory Rate Blood Pressure 143/92 H BP Systolic 143 BP Diastolic 92 Pulse Ox 02/28/24 16:51 Temperature 98.4 F Temperature Source Pulse Rate Respiratory Rate Blood Pressure BP Systolic BP Diastolic Pulse Ox Weight Weight: 184 lb 4.903 oz Body Mass Index (BMI) 31.6 Physical Exam Const alert, oriented x3 and no apparent distress General Appearance: cooperative Orientation / Consciousness: awake HEENT normocephalic Neck full ROM Lymph Lymphatic: no lymphadenopathy noted Chest inspection of chest normal Resp normal respiratory effort and normal air movement Effort and Inspection: able to speak in complete sentences and symmetric chest movement GI soft to palpation and non-tender Inspection: gravid Palpation: soft; Negative for tender external exam normal Manual OB Exam: dilated 3 and station -3 Back/Spine normal to inspection Extremity normal to inspection and full ROM Skin no rashes or lesions noted Psych mental status grossly normal Appearance: grossly normal Speech: normal speech Labs Labs Labs: Blood Type O POSITIVE Antibody Screen NEGATIVE Hct 32.6 % (37-47) L Hgb 10.4 g/dL (12.0-15.0) L Obstetrics Ultrasound Syphilis Total Ab Non-reactive Rubella IgG Antibody Reactive (Nonreactive) Hep Bs Antigen Non-Reactive (Nonreactive) Hepatitis C Antibody Non-Reactive (Nonreactive) Chlamydia DNA (VIKTOR) Negative (Negative) N.gonorrhoeae DNA (VIKTOR) Negative (Negative) HIV 1&2 Antibody Non-Reactive (Nonreactive) Glucose 1 Hr 50 gm 159 mg/dL (70-140) H Gest Glucose Tolerance MG/DL Rhogam given: No Miscellaneous Test Assessment & Plan (1) Encounter for induction of labor: PLAN: Patient presents IOL, plan management for with pitocin/AROM, MISAEL Pain management: plans epidural. GBS negative. Management of any complications: none I have reviewed the [facility] and made any clinically relevant updates. Dr Yusuf aware of induction, assessment and plan. agrees with above (2) Chronic hypertension with superimposed preeclampsia: COMMENT: new onset proteinuria, discussed with patient bp parameters, symptoms, consider steroid administration. recommend weekly labs and delivery at 37 weeks, weekly BPP and weekly NST, growth 15% (3) Abnormal glucose affecting : COMMENT: passed 3 hour (4) History of pre-eclampsia in prior , currently : COMMENT: labs with NOB (5) Supervision of high-risk : QUALIFIERS: Trimester: second trimester Qualified Code(s): O09.92 - Supervision of high risk , unspecified, second trimester COMMENT: PRR, , RAYMOND 03/19/24, boy, MIO Sow, Adelfo (6) : QUALIFIERS: Weeks of gestation: 36 weeks Qualified Code(s): Z3A.36 - 36 weeks gestation of COMMENT: GBS neg, normal anatomy, NIPT low risk, declined ntd & carrier testing & AFP (7) Hx of gestational diabetes in prior , currently : COMMENT: A1C normal (8) Chronic hypertension: COMMENT: growth US q4 weeks controlled with labetolol; baseline labs with NOB. delivery by 37-38 weeks weekly nsts starting 32 weeks. Charges/Coding Multi Select Codes Urinary/Genital Urinary/Genital CPT Codes: No Charge
[2024-02-28 18:18] LABS: Hematocrit 30.8 % (37-47); Hemoglobin 9.6 g/dL (12.0-15.0); Mean Corp Hgb Conc 31.2 g/dL (32-36); Mean Corpuscular Hgb 25.3 pg (27.0-32.0); Mean Corpuscular Volume 81.1 fL (81-99); Mean Platelet Vol. 11.6 fl (6.2-12.0); Platelet Count 268 K/mm3 (150-450); RBC Distribution Width CV 14.4 % (11.6-14.6); RBC Distribution Width SD 42.1 fl (35.1-43.9); White Blood Count 13.1 K/mm3 (4.4-11.0)
[2024-02-28 18:59] LABS: AST(SGOT) 21 U/L (15-37); Alanine Aminotransfer ALT/SGPT 19 U/L (13-56); Creatinine, Serum 0.52 mg/dL (0.55-1.02); EST Glomerular Filtration Rate 147 mL/min (>60); Est Glom Filt Rate - Afr Amer 178 mL/min (>60); Estimated Creatinine Clearance 163.97 ml/min; Uric Acid 4.4 mg/dL (2.6-6.0)
[2024-02-28] MEDS: Labetalol 200 MG Tablet PO (19:03)
[2024-02-28 19:05] LABS: Protein, Urine (Random) 16.3 mg/dL (<11.9); Protein:Creat Ratio 271 mg/g CRE (0-200)
[2024-02-28] MEDS: Oxytocin 15 Units/NS 250ml 15 UNITS/250 ML IV.SOLN 2 UNITS IV (23:19)
[2024-02-28] MEDS: Lactated Ringers 1,000 ML 50 ML IV (23:21)
[2024-02-29] VITALS (41 sets, daily range): BP systolic 118–177; BP diastolic 65–95; PULSE 53–96; RESP 14–18; TEMP 36.1–36.9; O2SAT 92–100
[2024-02-29 00:39] LABS: Syphilis Antibodies Non-reactive
[2024-02-29] MEDS: Lactated Ringers 1,000 ML 999 ML IV (03:03)
[2024-02-29] MEDS: fentaNYL-bupivacaine (epidural) 100 ML BAG EPIDURAL (04:24)
--- NOTE | 2024-02-29 05:10 | PN_ITS ---
Progress Note comfortable with epidural current tracing: FHT: 130 Moderate variability reactive no decelerations category I tracing [place]: 3 minute Contractions-IUPC placed Membranes:ruptured for clear SVE:/2 reviewed tracing abnormalities since last note: phone collaboration with Dr Yusuf at this time for 2 elevated BPs over protocol while sitting up for her epidural. While on phone with nursing she then had 2 under protocol [address] Hunt notified of all and agrees to monitor BPs at this time and not start HTN protocol. A/P: Continue with position changes Titrate pitocin per protocol Epidural per anesthesia GBS neg IUPC in place for pitocin titration Anticipate Dr Hunt aware of above assessment and agrees with plan of care Assessment & Plan Assessment/Plan (1) Encounter for induction of labor: (2) Chronic hypertension with superimposed preeclampsia: (3) Abnormal glucose affecting : (4) History of pre-eclampsia in prior , currently : (5) Supervision of high-risk : QUALIFIERS: Trimester: second trimester Qualified Code(s): O09.92 - Supervision of high risk , unspecified, second trimester (6) : QUALIFIERS: Weeks of gestation: 36 weeks Qualified Code(s): Z3A.36 - 36 weeks gestation of (7) Hx of gestational diabetes in prior , currently : (8) Chronic hypertension: Multi Select Codes Urinary/Genital Urinary/Genital CPT Codes: No Charge
[2024-02-29] MEDS: Labetalol 200 MG Tablet PO ×2 (06:31→18:38)
[2024-02-29] MEDS: Lactated Ringers 1,000 ML 200 ML IV (07:31)
--- NOTE | 2024-02-29 08:06 | OP.PCM_ITS ---
Assessment & Plan (1) Encounter for induction of labor: (2) Chronic hypertension with superimposed preeclampsia: COMMENT: new onset proteinuria, discussed with patient bp parameters, symptoms, consider steroid administration. recommend weekly labs and delivery at 37 weeks, weekly BPP and weekly NST, growth 15% (3) Abnormal glucose affecting : COMMENT: passed 3 hour (4) History of pre-eclampsia in prior , currently : COMMENT: labs with NOB (5) Supervision of high-risk : QUALIFIERS: Trimester: second trimester Qualified Code(s): O09.92 - Supervision of high risk , unspecified, second trimester COMMENT: PRR, , RAYMOND 03/19/24, MIO batres, Adelfo (6) : QUALIFIERS: Weeks of gestation: 36 weeks Qualified Code(s): Z3A.36 - 36 weeks gestation of COMMENT: GBS neg, normal anatomy, NIPT low risk, declined ntd & carrier testing & AFP (7) Hx of gestational diabetes in prior , currently : COMMENT: A1C normal (8) Chronic hypertension: COMMENT: growth US q4 weeks controlled with labetolol; baseline labs with NOB. delivery by 37-38 weeks weekly nsts starting 32 weeks. (9) Vaginal delivery: COMMENT: giesl Prem IOL chtn preeclampsia 37 Maternal Data Information RAYMOND Calculator Estimated Delivery Date Method Current WG Current Estimate 03/19/24 LMP (Certain) 37w 2d Final RAYMOND: 03/19/24 Final RAYMOND Source: US >20 weeks Gestational age: 37.2 Vaginal Delivery Maternal Presentation Maternal Presentation: Medically Indicated Induction (cHTN) Maternal Presentation: Progressed well to 10cm dilated and made steady progress with effective maternal pushing. Delivered the head in SILVA presentation. The head was delivered atraumatically and a tight nuchal cord was identified and delivered through. The anterior and posterior shoulders delivered without complication followed by the rest of the and the infant was placed on the maternal abdomen. Delayed cord clamping was employed for approximately 3 minutes. Cord was clamped and cut and gentle traction was applied to the cord and the placenta delivered spontaneously. Immediately following, it was noted to be intact with a 3 vessel cord. IV Pitocin started and vaginal bleeding stable. The perineum and vagina were inspected and noted to have a first degree laceration which was repaired with 3-0 Vicryl in the usual fashion. EBL was 200cc. Apgars 8/9. Patient and tolerated delivery well. Bonding skin to skin during recovery. Dr Camraena notified of vaginal delivery and orders reviewed. Physician agrees with current plan of care. Type of Induction: Pitocin Medical Reason for Induction: Gestational Hypertension Operative Information Date of Procedure: 02/29/24 Pre-Operative Diagnosis: See AP comments Post-Operative Diagnosis: Same Surgery / Procedure Performed: Spontaneous Vaginal Delivery services program manager #1: Carlene Vega Type of Anesthesia: Epidural Estimated Blood Loss: 200 Time of Delivery: 07:46 Findings Presentation: Vertex Amniotic Membrane Rupture Type: Artificial Amniotic Fluid Description: Clear Placental Delivery Description: Spontaneous Placenta Disposition: [facility] Cord Vessel Description: 3 Vessels Cord Entanglement: Around neck x 1, tight A Gender: Male (1 minute): 8 (5 minute): 9 Delayed Cord Clamping: Yes Post Vaginal Delivery Medications Given After Delivery: IV Pitocin Episiotomy Description: None Laceration: 1st degree Complication Complications: None Multi Select Codes Urinary/Genital Urinary/Genital CPT Codes: 66588 Vaginal Delivery [facility]
--- NOTE | 2024-02-29 08:13 | DCINST_ITS ---
Discharge Instructions Diet Discharge Diet: No restrictions Activity Discharge Activity: Return to Normal Activity May resume sexual activity in: 6-8 weeks Dressing / Incision Call your doctor if you observe: Fever of 101 or Higher, Coldness, Increased Pain, Numbness or Tingling, Change in Color, Inability to urinate, Inability to have a bowel movement, Using more than 1 pad per hour, Shortness of breath, Dizziness, Fainting spells, Swelling in the ankles, Chest pain, Increased palpitations (irregular heartbeat), Calf discomfort and Uncontrolled pain Follow Up Care Please Follow Up With: Carlene Vega CNM When: Please call the office to schedule your follow up appointment in 6 weeks. If you had high blood pressure please call to schedule an appointment in 2 weeks. Test Results: Test results from this visit will be discussed in further detail at your follow- up appointment, if applicable. Discharge Plan Admission Admit Date/Time: 02/28/24 20:28 Attending Provider: Carlene Vega Primary Care Provider: MYRIAM CISNEROS Discharge Orders/Prescriptions Prescriptions: No Action labetalol 200 mg tablet 200 mg PO BID PNV-DHA 27 mg iron-1 mg -300 mg capsule 1 cap PO DAILY Unisom (doxylamine) 25 mg tablet 25 mg PO QHS PRN (Reason: sleep) pyridoxine (vitamin B6) 10 mg tablet 10 mg PO DAILY famotidine [Acid Controller] 20 mg tablet 20 mg PO DAILY Referrals / Follow Up: MYRIAM CISNEROS MD [Primary Care Provider] -
[2024-02-29] MEDS: Oxytocin 15 Units/NS 250ml 15 UNITS/250 ML IV.SOLN 83 UNITS IV (08:30)
[2024-02-29] MEDS: Methylergonovine 0.2 MG/ML Ampul IM (09:24)
[2024-02-29] MEDS: Ondansetron 4 MG/2 ML Vial IV (10:05)
[2024-02-29] MEDS: Acetaminophen 500 MG Tablet 1000 MG PO (16:30)
[2024-03-01] VITALS (13 sets, daily range): BP systolic 118–158; BP diastolic 59–83; PULSE 63–83; RESP 16; TEMP 36.6–36.9; O2SAT 96–97
[2024-03-01] MEDS: Ibuprofen 600 MG Tablet PO (05:00)
[2024-03-01] MEDS: Labetalol 200 MG Tablet PO ×2 (06:10→17:38)
--- NOTE | 2024-03-01 10:49 | PN.OBGYN_ITS ---
Subjective Subjective Patient doing well without complaints. Tolerating PO. Ambulating and voiding without difficulty. Feeding well. Denies chest pain, shortness of breath, calf pain/swelling, fevers, chills, lightheadedness. Objective Data Objective Data Vital Signs: Vital Signs Temp Pulse Resp BP Pulse Ox O2 Del Method 97.8 F 73 16 126/67 H 97 Room Air 03/01/24 07:57 03/01/24 07:57 03/01/24 07:57 03/01/24 07:57 03/01/24 07:57 03/01/24 07:57 Oxygen Delivery Method Room Air Weight: 184 lb 4.903 oz Body Mass Index (BMI) 31.6 Intake & Output: Intake and Output for Last 24 Hours 02/28/24 02/29/24 03/01/24 23:59 23:59 23:59 Intake Total 2606.67 / 2606.67 Output Total 1500 / 1500 Balance 1106.67 / 1106.67 Lab / Micro Data Attestation: I reviewed the patient's lab results. 02/28/24 18:05 02/28/24 18:05 ROS Constitutional Constitutional: Reports systems reviewed and no addt'l complaints, except as documented; Denies anorexia or headache(s) Cardiovascular Cardiovascular: Reports systems reviewed and no addt'l complaints, except as documented; Denies dizziness, dyspnea, nausea or tachypnea Respiratory/Chest Respiratory/Chest: Reports systems reviewed and no addt'l complaints, except as documented; Denies cough, dyspnea, shortness of breath at rest or tachypnea Gastrointestinal Gastrointestinal: Reports systems reviewed and no addt'l complaints, except as documented; Denies abdominal pain, constipation or nausea Genitourinary Genitourinary: Reports systems reviewed and no addt'l complaints, except as documented; Denies burning urination, difficulty urinating, dysuria, urinary frequency or urinary incontinence Musculoskeletal Musculoskeletal: Reports systems reviewed and no addt'l complaints, except as documented Integumentary Integumentary: Reports systems reviewed and no addt'l complaints, except as documented Neurologic Neurologic: Reports systems reviewed and no addt'l complaints, except as documented; Denies abnormal speech, dizziness or headache(s) Psychiatric Psychiatric: Reports systems reviewed and no addt'l complaints, except as documented Endocrine Endocrinology: Reports systems reviewed and no addt'l complaints, except as documented Hematologic/Lymphatic Hematologic/Lymphatic: Reports systems reviewed and no addt'l complaints, except as documented Physical Exam Const alert, oriented x3 and no apparent distress Neck full ROM Resp normal respiratory effort, normal air movement and no retractions Effort and Inspection: able to speak in complete sentences and symmetric chest movement GI soft to palpation Bladder / Kidney Exam: bladder normal to palpation Uterus Palpation: uterus fundus firm Extremity normal to inspection and full ROM Psych mental status grossly normal, thought process normal and cooperative Assessment & Plan (1) Vaginal delivery: COMMENT: gisel Prem IOL chtn preeclampsia 37 PLAN: s/p PPD # 1 1. routine post delivery care 2. breast feeding- support given 3. rh positive 4. rubella immune (2) Encounter for induction of labor: (3) Chronic hypertension with superimposed preeclampsia: COMMENT: new onset proteinuria, discussed with patient bp parameters, symptoms, consider steroid administration. recommend weekly labs and delivery at 37 weeks, weekly BPP and weekly NST, growth 15% (4) Abnormal glucose affecting : COMMENT: passed 3 hour (5) History of pre-eclampsia in prior , currently : COMMENT: labs with NOB (6) Supervision of high-risk : QUALIFIERS: Trimester: second trimester Qualified Code(s): O09.92 - Supervision of high risk , unspecified, second trimester COMMENT: PRR, , RAYMOND 03/19/24, MIO batres, Adelfo (7) : QUALIFIERS: Weeks of gestation: 36 weeks Qualified Code(s): Z 3A.36 - 36 weeks gestation of COMMENT: GBS neg, normal anatomy, NIPT low risk, declined ntd & carrier testing & AFP (8) Hx of gestational diabetes in prior , currently : COMMENT: A1C normal (9) Chronic hypertension: COMMENT: growth US q4 weeks controlled with labetolol; baseline labs with NOB. delivery by 37-38 weeks weekly nsts starting 32 weeks. Charges/Coding Multi Select Codes Urinary/Genital Urinary/Genital CPT Codes: No Charge
[2024-03-02 03:30] VITALS: BP 136/76; PULSE 77; RESP 16; TEMP 36.7
[2024-03-02 03:39] VITALS: BP 136/76; PULSE 77
[2024-03-02] MEDS: Labetalol 200 MG Tablet PO (06:58)
--- NOTE | 2024-03-02 07:32 | PN.OBGYN_ITS ---
Subjective Subjective Patient doing well without complaints. Tolerating PO. Ambulating and voiding without difficulty. Feeding well. Denies chest pain, shortness of breath, calf pain/swelling, fevers, chills, lightheadedness. Objective Data Objective Data Vital Signs: Vital Signs Temp Pulse Resp BP Pulse Ox O2 Del Method 98.0 F 77 16 136/76 H 96 Room Air 03/02/24 03:30 03/02/24 03:39 03/02/24 03:30 03/02/24 03:39 03/01/24 19:53 03/01/24 19:53 Oxygen Delivery Method Room Air Weight: 184 lb 4.903 oz Body Mass Index (BMI) 31.6 Intake & Output: Intake and Output for Last 24 Hours 02/29/24 03/01/24 03/02/24 23:59 23:59 23:59 Intake Total 2606.67 / 2606.67 Output Total 1500 / 1500 Balance 1106.67 / 1106.67 Lab / Micro Data Attestation: I reviewed the patient's lab results. 02/28/24 18:05 02/28/24 18:05 ROS Constitutional Constitutional: Reports systems reviewed and no addt'l complaints, except as documented; Denies anorexia or headache(s) Cardiovascular Cardiovascular: Reports systems reviewed and no addt'l complaints, except as documented; Denies dizziness, dyspnea, nausea or tachypnea Respiratory/Chest Respiratory/Chest: Reports systems reviewed and no addt'l complaints, except as documented; Denies cough, dyspnea, shortness of breath at rest or tachypnea Gastrointestinal Gastrointestinal: Reports systems reviewed and no addt'l complaints, except as documented; Denies abdominal pain, constipation or nausea Genitourinary Genitourinary: Reports systems reviewed and no addt'l complaints, except as documented; Denies burning urination, difficulty urinating, dysuria, urinary frequency or urinary incontinence Musculoskeletal Musculoskeletal: Reports systems reviewed and no addt'l complaints, except as documented Integumentary Integumentary: Reports systems reviewed and no addt'l complaints, except as documented Neurologic Neurologic: Reports systems reviewed and no addt'l complaints, except as documented; Denies abnormal speech, dizziness or headache(s) Psychiatric Psychiatric: Reports systems reviewed and no addt'l complaints, except as documented Endocrine Endocrinology: Reports systems reviewed and no addt'l complaints, except as documented Hematologic/Lymphatic Hematologic/Lymphatic: Reports systems reviewed and no addt'l complaints, except as documented Physical Exam Const alert, oriented x3 and no apparent distress Neck full ROM Resp normal respiratory effort, normal air movement and no retractions Effort and Inspection: able to speak in complete sentences and symmetric chest movement GI soft to palpation Bladder / Kidney Exam: bladder normal to palpation Uterus Palpation: uterus fundus firm Extremity normal to inspection and full ROM Psych mental status grossly normal, thought process normal and cooperative Assessment & Plan (1) Vaginal delivery: COMMENT: gisel Prem IOL chtn preeclampsia 37 PLAN: s/p PPD # 2 1. routine post delivery care 2. breast feeding- support given 3. rh positive 4. rubella immune 5. Discharge home (2) Encounter for induction of labor: (3) Chronic hypertension with superimposed preeclampsia: COMMENT: new onset proteinuria, discussed with patient bp parameters, symptoms, consider steroid administration. recommend weekly labs and delivery at 37 weeks, weekly BPP and weekly NST, growth 15% (4) Abnormal glucose affecting : COMMENT: passed 3 hour (5) History of pre-eclampsia in prior , currently : COMMENT: labs with NOB (6) Supervision of high-risk : QUALIFIERS: Trimester: second trimester Qualified Code(s): O09.92 - Supervision of high risk , unspecified, second trimester COMMENT: PRR, , RAYMOND 03/19/24, MIO batres, Adelfo (7) : QUALIFIERS: Weeks of gestation: 36 weeks Qualified Code(s): Z 3A.36 - 36 weeks gestation of COMMENT: GBS neg, normal anatomy, NIPT low risk, declined ntd & carrier testing & AFP (8) Hx of gestational diabetes in prior , currently : COMMENT: A1C normal (9) Chronic hypertension: COMMENT: growth US q4 weeks controlled with labetolol; baseline labs with NOB. delivery by 37-38 weeks weekly nsts starting 32 weeks. Charges/Coding Multi Select Codes Urinary/Genital Urinary/Genital CPT Codes: No Charge
--- NOTE | 2024-03-02 07:46 | PCM.DC.SUM ---
Providers Date of Admission: 02/28/24 Date of Discharge: 03/02/24 Primary Care Physician: MYRIAM CISNEROS MD Reason For Visit: VAGINAL DELIVERY Diagnosis Discharge Diagnosis (1) Vaginal delivery: Status: Acute Code(s): O80 - Encounter for full-term uncomplicated delivery Plan: s/p PPD # 2 1. routine post delivery care 2. breast feeding- support given 3. rh positive 4. rubella immune 5. Discharge home (2) Encounter for induction of labor: Status: Acute Code(s): Z34.90 - Encounter for supervision of normal , unspecified, unspecified trimester (3) Chronic hypertension with superimposed preeclampsia: Status: Acute Code(s): O11.9 - Pre-existing hypertension with pre-eclampsia, unspecified trimester (4) Abnormal glucose affecting : Status: Acute Code(s): O99.810 - Abnormal glucose complicating (5) History of pre-eclampsia in prior , currently : Status: Acute Code(s): O09.299 - Supervision of with other poor reproductive or obstetric history, unspecified trimester (6) Supervision of high-risk : Status: Acute Code(s): O09.90 - Supervision of high risk , unspecified, unspecified trimester Qualifiers: Trimester: second trimester Qualified Code(s): O09.92 - Supervision of high risk , unspecified, second trimester (7) : Status: Acute Code(s): Z34.90 - Encounter for supervision of normal , unspecified, unspecified trimester Qualifiers: Weeks of gestation: 36 weeks Qualified Code(s): Z3A.36 - 36 weeks gestation of (8) Hx of gestational diabetes in prior , currently : Status: Acute Code(s): O09.299 - Supervision of with other poor reproductive or obstetric history, unspecified trimester; Z86.32 - Personal history of gestational diabetes (9) Chronic hypertension: Status: Chronic Code(s): I10 - Essential (primary) hypertension Medications at Discharge Home Medications labetalol 200 mg tablet 200 mg PO BID 07/30/23 multivitamin no.47-iron fum 27 mg-folate no.1 1 mg-dha 300 mg capsule (PNV-DHA) 1 cap PO DAILY 07/30/23 famotidine 20 mg tablet (Acid Controller) 20 mg PO DAILY 08/30/23 doxylamine succinate 25 mg tablet (Unisom (doxylamine)) 25 mg PO QHS PRN sleep 10/01/23 pyridoxine (vitamin B6) 10 mg tablet 10 mg PO DAILY 10/01/23 Hospital Course Operations None Procedures None Summary of Care Provided Minutes Spent on Discharge: 30 Physical Exam Const alert, oriented x3 and no apparent distress Neck full ROM Resp normal respiratory effort, normal air movement and no retractions Effort and Inspection: able to speak in complete sentences and symmetric chest movement GI soft to palpation Inspection: incision intact Bladder / Kidney Exam: bladder normal to palpation Uterus Palpation: uterus fundus Extremity normal to inspection and full ROM Psych mental status grossly normal, thought process normal and cooperative Weight / BMI Weight Weight: 184 lb 4.903 oz Body Mass Index (BMI) 31.6 ABG / Lab / Microbiology Data 02/28/24 18:05 02/28/24 18:05 D/C Instructions Discharge Diet: No restrictions Discharge Activity: Return to Normal Activity May shower in (days): 0 May resume sexual activity in: 4-6 weeks Weight Bearing Status: Full weight bearing Call your doctor if your incision/area has: Continuous Slow Oozing, Sudden Increased Bleeding, Increased Pain/ Swelling, Increased Redness and Foul Smelling Discharge Call your doctor if you observe: Fever of 101 or Higher, Coldness, Increased Pain, Numbness or Tingling, Change in Color, Inability to urinate, Inability to have a bowel movement, Using more than 1 pad per hour, Shortness of breath, Dizziness, Fainting spells, Swelling in the ankles, Chest pain, Increased palpitations (irregular heartbeat), Calf discomfort and Uncontrolled pain Suture Line Care: Avoid Pulling/Pushing and Avoid Pinching/Bending Cleanse incision/area with: Soap & Water and Keep Dressing Clean & Dry Please Follow Up With: Carlene Vega CNM When: Please call the office to schedule your follow up appointment in 6 weeks. If you had high blood pressure please call to schedule an appointment in 1 week. Meaningful Use Info Meaningful Use Meaningful Use Diagnoses (Choose all that apply): None applicable Ischemic Stroke Statin Dosing Therapy Reference: STATIN DOSE THERAPY REFERENCE: * Patients > 75 years receive moderate or high dose statin therapy. * Patients 75 years or YOUNGER should receive HIGH intensity statin dose unless contraindicated. You will be required to document reason for non-treatment if statin daily dose does not meet guidelines. HIGH DOSE STATIN THERAPY DAILY Atorvastatin > than or = to 40 mg Rosuvastatin > than or = to 20 mg Amlodipine + Atorvastatin > than or = to 2.5/40 mg Ezetimibe + Simvastatin 10/80 mg Simvastatin 80mg Discharge Plan Admission Admit Date/Time: 02/28/24 20:28 Attending Provider: Carlene Vega Primary Care Provider: MYRIAM CISNEROS Discharge Orders/Prescriptions Prescriptions: No Action labetalol 200 mg tablet 200 mg PO BID PNV-DHA 27 mg iron-1 mg -300 mg capsule 1 cap PO DAILY Unisom (doxylamine) 25 mg tablet 25 mg PO QHS PRN (Reason: sleep) pyridoxine (vitamin B6) 10 mg tablet 10 mg PO DAILY famotidine [Acid Controller] 20 mg tablet 20 mg PO DAILY Referrals / Follow Up: MYRIAM CISNEROS MD [Primary Care Provider] - Disposition Disposition (needs filled in before D/C Order can be placed): Home, Self Care Charges/Coding Multi Select Codes Urinary/Genital Urinary/Genital CPT Codes: No Charge
[2024-03-02 08:00] VITALS: BP 130/78; PULSE 82; RESP 16; TEMP 36.3
[2024-03-02 08:05] VITALS: BP 130/78; PULSE 82
== END 2024-03-02 10:15 | disposition home or self-care (01) | DRG 807 ==
LOC: WPOUT 20:35 → WP 20:35
PROVIDERS: Obstetrics & Gynecology; Admitting Provider Advanced Practice Midwife; Referring Provider Advanced Practice Midwife; Visit Provider Advanced Practice Midwife
DX: O11.4 Pre-existing hypertension with pre-eclampsia, complicating childbirth (principal); Z37.0 Single live birth; O12.14 Gestational proteinuria, complicating childbirth; O69.1XX0 Labor and delivery complicated by cord around neck, with compression, not applicable or unspecified; O70.0 First degree perineal laceration during delivery; Z3A.37 37 weeks gestation of pregnancy; Z86.32 Personal history of gestational diabetes; Z79.899 Other long term (current) drug therapy
CPT/HCPCS: 59025; 59050; 82565; 82570; 84156; 84450; 84460; 84550; 85027; 86780; 86850; 86900; 86901; 99221; J7120; G0378; J2405

== ENCOUNTER 2024-03-06 18:15 | Emergency (ER) | payer OTHER, SELFPAY ==
[2024-03-06 18:16] VITALS: BP 140/77; PULSE 71; RESP 18; TEMP 35.9; O2SAT 98; BMI 28.9
--- NOTE | 2024-03-06 19:01 | EDS_ITS ---
HPI History of Present Illness Chief Complaint: Shortness of Breath Informant: patient Onset/Context/Timing Onset: Days (4) Context: gradual Timing: Continuous Quality: Positive for Dyspnea on exertion Worsened by: Exertion Relieved by: Rest Associated Symptoms Negative for cough, rhinorrhea, post nasal drip, ear pain, fever, sore throat, chills, clear sputum, white sputum, yellow sputum or green sputum Chest Pain: Positive for None Narrative Narrative: Patient presents with shortness of breath that has been getting worse over the past 4 days. Patient is 6 days . Patient states that she started having some shortness of breath when she left the hospital. Patient states that her breathing is worse with any exertion. Patient states it is better with rest. Patient denies any cough. Patient denies any fevers or chills. Patient denies any chest pain. Patient denies any nausea or vomiting. Patient states she contacted her SMALL ENGINE TECHNICIAN who referred her to the emergency department today. PE Risk Factors: Positive for - (Recent vaginal delivery); Negative for Cancer, Prior DVT or PE or Recent travel [facility] Medical History Vaginal delivery Spotting Dyspareunia in female care and examination Pre-eclampsia superimposed on chronic hypertension Pre-eclampsia Gestational diabetes Gestational diabetes HTN (hypertension) Home Medications ?Medication ?Instructions ?Recorded ?Last Taken ?Type labetalol 200 mg tablet 200 mg PO BID 07/30/23 02/28/24 06:00 History multivitamin no.47-iron fum 27 1 cap PO DAILY 07/30/23 Unknown History mg-folate no.1 1 mg-dha 300 mg capsule (PNV-DHA) famotidine 20 mg tablet (Acid 20 mg PO DAILY 08/30/23 Unknown History Controller) doxylamine succinate 25 mg tablet 25 mg PO QHS PRN sleep 10/01/23 Unknown History (Unisom (doxylamine)) pyridoxine (vitamin B6) 10 mg 10 mg PO DAILY 10/01/23 Unknown History tablet Allergy/AdvReac Type Severity Reaction Status Date / Time No Known Allergies Allergy Verified 03/06/24 18:15 Family History Grandmother Diabetes Kidney disease Grandfather Parkinsons disease Mother Scoliosis Father Hypertension Hyperlipidemia Uncle Hypertension Paternal Aunt Hypertension Paternal Surgical History History of oral surgery Social History adopted: No household members: spouse and children number of children: 1 current occupational status: employed 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 current occupational exposures/hazards: No pets and animals: Yes pets and animals: dog(s) history of recent travel: No sexually active: Yes Smoking Status: Never smoker alcohol intake: current alcohol intake frequency: a few times a month details: not while substance use type: does not use diet: vegetarian well-balanced diet: daily or most days caffeine: Yes Type: coffee Number of servings: 1 eating out: 1-3 times/week during the past year weight has: increased > 10 lbs ofelia/taoist: [employer] seatbelt use: always do you feel safe at home: Yes additional social history: - [employer]elf[employer] [facility] ED Constitutional Constitutional ED: Denies chills or fever(s) Eyes Eyes: Denies blurry vision or change in vision ENT ENT ED: Denies rhinorrhea or sore throat Cardiovascular Cardiovascular: Denies chest pain or palpitations Respiratory/Chest Respiratory/Chest: Reports dyspnea; Denies cough Gastrointestinal Gastrointestinal: Denies nausea or vomiting Genitourinary Genitourinary ED: Denies dysuria or hematuria Musculoskeletal Musculoskeletal: Denies back pain or neck pain Integumentary Denies abscess or rash Neurologic Neurologic: Denies headache(s) or weakness Allergic/Immunologic Allergic/Immunologic ED: Denies mouth swelling or urticaria EXAM Physical Exam Const Vital Signs: 03/06/24 18:16 03/06/24 19:04 03/06/24 20:15 Temperature 96.7 F L Temperature Source Temporal Pulse Rate 71 68 Respiratory Rate 18 24 H Respiratory Effort Short of Breath Respiratory Depth Normal Respiratory Pattern Normal Blood Pressure 140/77 H 136/70 H Blood Pressure Mean 98 92 Pulse Ox 98 99 Oxygen Delivery Method Room Air Room Air Room Air 03/06/24 20:55 Temperature Temperature Source Pulse Rate 69 Respiratory Rate 18 Respiratory Effort Respiratory Depth Respiratory Pattern Blood Pressure Blood Pressure Mean Pulse Ox Oxygen Delivery Method Positive well nourished and well developed General Appearance ED: well developed and NAD HEENT Reports moist mucous membranes Neck supple, no meningeal signs and no JVD Resp normal respiratory effort and clear to auscultation bilaterally Cardio regular rate and regular rhythm GI non-tender and non-distended Palpation: soft Neuro oriented x3, CN's II-XII intact bilaterally and no sensory deficits noted [place] Coma Scale: document GCS findings Spontaneous Obeys Commands Oriented 15 Sensorium / Orientation: alert Motor Exam: strength 5/5 throughout MDM MDM MDM Narrative Medical decision making narrative: Differential diagnosis includes pulmonary embolism, pneumonia, pneumothorax, preeclampsia, urinary tract infection, and viral illness. CT of the chest will be obtained to assess for pulmonary embolism, pneumonia, pneumothorax, and bronchitis. CBC will be obtained to assess for leukocytosis and anemia. Comprehensive metabolic profile will be obtained to assess for hepatic function, renal function, and electrolyte abnormality. Magnesium will be obtained to assess for hypomagnesemia. Urinalysis will be obtained to assess for urinary tract infection and hematuria. Lab Data Attestation: I reviewed the patient's lab results. Lab results narrative: CBC was reviewed. There is a mild anemia with a hemoglobin of 8.8 and hematocrit of 28.4. Comprehensive metabolic profile was reviewed and was within normal limits. Magnesium was reviewed and was normal at 1.7. Urinalysis was reviewed. There is a leukocyte esterase of 100. There are 5-10 white blood cells. There is 2+ bacteria. Occult blood was 250. Labs: Laboratory Results - last 24 hr 03/06/24 03/06/24 19:35 19:40 WBC 10.4 RBC 3.37 L Hgb 8.8 L Hct 28.0 L MCV 83.1 MCH 26.1 L MCHC 31.4 L RDW Std Deviation 44.0 H RDW Coeff of Erasmo 15.5 H Plt Count 319 MPV 9.9 Immature Gran % (Auto) 0.600 Neut % (Auto) 69.0 Lymph % (Auto) 21.8 [place] % (Auto) 6.6 Eos % (Auto) 1.5 Baso % (Auto) 0.5 Absolute Neuts (auto) 7.2 Absolute Lymphs (auto) 2.27 Nucleated RBC % 0 Sodium 139 Potassium 3.6 Chloride 107 Carbon Dioxide 26.0 Anion Gap 6 BUN 12 Creatinine 0.57 Estim Creat Clear Calc 143.15 Est GFR (MDRD) Af Amer 158 Est GFR (MDRD) Non-Af 130 BUN/Creatinine Ratio 21.0 H Glucose 88 Calcium 8.5 Magnesium 1.7 Total Bilirubin 0.90 AST 14 L ALT 25 Alkaline Phosphatase 92 Total Protein 6.5 Albumin 2.6 L Globulin 3.9 Albumin/Globulin Ratio 0.7 L Urine Color Yellow Urine Clarity Clear Urine pH 6.0 Ur Specific [place] 1.015 Urine Protein 15 H Urine Glucose (UA) Normal Urine Ketones Negative Urine Occult Blood 250 H Urine Nitrite Negative Urine Bilirubin Negative Urine Urobilinogen Normal Ur Leukocyte Esterase 100 H Urine RBC 0-5 SEEN Urine WBC 5-10 SEEN Ur Squamous Epith Cells 0-5 SEEN Urine Bacteria 2+ Urine Mucus 1+ Radiography CTA PE Study: No Evidence of PE and No Evidence of Dissection Diagnostic Testing: Clinical Impression(s) from Imaging Studies Chest CTA 03/06/24 19:29 IMPRESSION: Negative CTA chest. Electronically Signed: Reza Dias DO at 20:24 EDT , CTA of the chest was obtained. There is no evidence of pulmonary embolism or aortic dissection. There is no acute infiltrate noted. This was interpreted by the radiologist and was also independently reviewed by myself. Additional Tests and Interventions Additional Tests or Interventions: Urine culture was obtained. Treatment and Re-Evaluation :: Patient was given a DuoNeb aerosol here. Patient was advised of her findings. Since the patient is not having any symptoms of a urinary tract infection, we will defer treatment of her possible urinary tract infection until culture results are returned. Patient was instructed to drink plenty of fluids. Patient was instructed to follow-up with her primary care physician and SMALL ENGINE TECHNICIAN in 5 to 7 days. Patient was instructed to return if worse in any way. Patient understood and was agreeable with the plan. All questions were answered. Discharge Plan Triage Chief Complaint: Shortness of Breath ED Provider: Damaso Katz Dx/Rx/DC Orders Clinical Impression: Dyspnea, Chronic hypertension Instructions: ED Dyspnea Prescriptions: No Action labetalol 200 mg tablet 200 mg PO BID PNV-DHA 27 mg iron-1 mg -300 mg capsule 1 cap PO DAILY Unisom (doxylamine) 25 mg tablet 25 mg PO QHS PRN (Reason: sleep) pyridoxine (vitamin B6) 10 mg tablet 10 mg PO DAILY famotidine [Acid Controller] 20 mg tablet 20 mg PO DAILY Primary Care Provider: MYRIAM CISNEROS Referrals: MYRIAM CISNEROS MD [Primary Care Provider] - 5-7 Days Print Language: Upper Sorbian Disposition Disposition: Home, Self Care
[2024-03-06 19:04] VITALS: O2SAT 97
--- NOTE | 2024-03-06 19:29 | CT_ITS ---
EXAM: CT ANGIOGRAPHY CHEST WITH INTRAVENOUS CONTRAST CLINICAL INDICATION: Dyspnea TECHNIQUE: Helically acquired angiography images were obtained of the chest with intravenous contrast. This CT exam was performed using one or more of the following dose reduction techniques: automated exposure control, adjustment of the mA and/or kV according to patient size, and/or use of iterative reconstruction technique. MIP reconstructed images were created and reviewed. CONTRAST: IV 100mL [id number] COMPARISON: No relevant prior studies available. FINDINGS: PULMONARY ARTERIES: No significant abnormality. Normal in caliber. No evidence of pulmonary embolism. AORTA: No significant abnormality. Normal in caliber. No evidence of dissection. GREAT VESSELS OF AORTIC ARCH: No significant abnormality. Normal in caliber. No evidence of dissection. LUNGS AND PLEURAL SPACES: No significant abnormality. No mass. No consolidation or edema. No pleural effusion or thickening. No pneumothorax. HEART: No significant abnormality. Heart size is normal. No pericardial effusion. MEDIASTINUM: No significant abnormality. No mediastinal or hilar adenopathy. Esophagus is unremarkable. No hiatal hernia. THYROID: No significant abnormality. No thyroid lesions. BONES/JOINTS: No significant abnormality. No suspicious lytic or blastic abnormality. CT/CTA Chest W/WO Contrast IMPRESSION: Negative CTA chest. Electronically Signed: Reza Dias DO at 20:24 EDT ,
[2024-03-06 19:44] LABS: Absolute Lymphocyte Count 2.27 X10^3/uL (0.83-4.51); Absolute Neutrophil Count 7.2 X10^3/uL (2.0-7.7); Basophil# 0.05 X10^3/uL; Basophil% 0.5 % (0-1); Eosinophil# 0.16 X10^3/uL; Eosinophils% 1.5 % (0-5); Hemoglobin 8.8 g/dL (12.0-15.0); Lymphocyte # 2.27 X10^3/ul (0.83-4.51); Lymphocyte % 21.8 % (19-41); Mean Corp Hgb Conc 31.4 g/dL (32-36); Mean Corpuscular Hgb 26.1 pg (27.0-32.0); Mean Corpuscular Volume 83.1 fL (81-99); Mean Platelet Vol. 9.9 fl (6.2-12.0); Monocyte# 0.69 X10^3/uL; Monocyte% 6.6 % (0-10); NRBC Flagged by Analyzer 0 % (0-5); Platelet Count 319 K/mm3 (150-450); RBC Distribution Width CV 15.5 % (11.6-14.6); Red Blood Count 3.37 M/mm3 (4.2-5.4); White Blood Count 10.4 K/mm3 (4.4-11.0)
[2024-03-06 20:00] LABS: Color, Urine Yellow (Yellow); Glucose, Dipstick Normal (Normal); Ketone-Dipstick Negative (Negative); Leukocyte Esterase-Dipstick 100 /ul (Negative); Nitrite-Dipstick Negative (Negative); Occult Blood-Urine 250 /ul (Negative); Protein-Dipstick 15 mg/dl (Negative); Specific Gravity, Urine 1.015 (1.002-1.030); Urine Bilirubin Dipstick Negative (Negative); Urine Clarity Clear (Clear); Urine Urobilinogen Normal (Normal)
[2024-03-06 20:12] LABS: ALB/GLOB Ratio 0.7 RATIO (0.9-2.4); AST(SGOT) 14 U/L (15-37); Alanine Aminotransfer ALT/SGPT 25 U/L (13-56); Albumin, Serum 2.6 g/dL (3.2-5.0); Alkaline Phosphatase 92 U/L (45-117); Anion Gap 6 (5-15); BUN 12 mg/dL (7-18); Calcium,Total 8.5 mg/dL (8.5-10.1); Chloride 107 mmol/L (98-107); Creatinine, Serum 0.57 mg/dL (0.55-1.02); EST Glomerular Filtration Rate 130 mL/min (>60); Est Glom Filt Rate - Afr Amer 158 mL/min (>60); Estimated Creatinine Clearance 143.15 ml/min; Globulin 3.9 g/dL (2.2-4.2); Glucose 88 mg/dL (74-106); Magnesium 1.7 mg/dL (1.6-2.6); Potassium 3.6 mmol/L (3.5-5.1); Protein, Total 6.5 g/dL (6.4-8.2); Sodium Level 139 mmol/L (136-145)
[2024-03-06 20:15] VITALS: BP 136/70; PULSE 68; RESP 24; O2SAT 99
[2024-03-06 20:17] LABS: Bacteria 2+ /hpf (None Seen); Mucous, Urine 1+ /hpf (<or=2+); Red Blood Cells-Urine 0-5 SEEN /hpf (0-5); Squamous Epithelial Cells - UA 0-5 SEEN /hpf (5-10); White Blood Cells 5-10 SEEN /hpf (0-5)
[2024-03-06 20:55] VITALS: PULSE 69; RESP 18
[2024-03-06] MEDS: Ipratropium/Albuterol Sulfate 3 ML AMPUL.NEB INHALATION (20:55)
[2024-03-06 21:26] VITALS: BP 127/69; PULSE 57; RESP 18; TEMP 36.8; O2SAT 99
== END 2024-03-06 21:31 | disposition home or self-care (01) ==
PROVIDERS: Emergency Provider Emergency Medicine; Visit Provider Emergency Medicine
DX: O99.53 Diseases of the respiratory system complicating the puerperium (principal); R06.00 Dyspnea, unspecified; O10.93 Unspecified pre-existing hypertension complicating the puerperium; Z79.899 Other long term (current) drug therapy
CPT/HCPCS: 71275; 80053; 81001; 83735; 85025; 87086; 87088; 94640; 99284; Q9967; A4216

== ENCOUNTER 2024-03-18 13:34 | Outpatient (CLI) | payer OTHER, SELFPAY ==
[2024-03-18] MEDS: 0.9% NaCl Peripheral Flush Adult/Peds IV (13:45)
[2024-03-18 13:47] VITALS: BP 121/67; PULSE 79; RESP 14; TEMP 36.3; O2SAT 98; BMI 28.3
[2024-03-18] MEDS: Iron Sucrose Complex 300 MG in 0.9% Normal Saline (250mL Bag) 250 ML 177 MG IV (14:02)
[2024-03-18 16:06] VITALS: BP 130/68; PULSE 55; RESP 16
== END 2024-03-18 23:59 | disposition home or self-care (01) ==
LOC: MEDOUTP 13:35
PROVIDERS: Referring Provider Obstetrics & Gynecology; Visit Provider Obstetrics & Gynecology
DX: O90.81 Anemia of the puerperium (principal)
CPT/HCPCS: 96365; 96366; J1756; J7050; A4216

== ENCOUNTER 2024-03-25 13:00 | Outpatient (CLI) | payer OTHER, SELFPAY ==
[2024-03-25 13:08] VITALS: BP 112/51; PULSE 53; RESP 16; TEMP 36.3; O2SAT 99
[2024-03-25] MEDS: 0.9% NaCl Peripheral Flush Adult/Peds IV (13:37)
[2024-03-25] MEDS: 0.9% Normal Saline (100mL Bag) 100 ML 15 ML IV (13:38)
[2024-03-25] MEDS: Iron Sucrose Complex 300 MG in 0.9% Normal Saline (250mL Bag) 250 ML 177 MG IV (13:38)
[2024-03-25 15:33] VITALS: BP 121/71; PULSE 50; RESP 16
== END 2024-03-25 23:59 | disposition home or self-care (01) ==
LOC: MEDOUTP 13:00
PROVIDERS: Referring Provider Obstetrics & Gynecology; Visit Provider Obstetrics & Gynecology
DX: O90.81 Anemia of the puerperium (principal)
CPT/HCPCS: 96365; 96366; J1756; J7050; A4216

== ENCOUNTER 2024-04-01 13:03 | Outpatient (CLI) | payer OTHER, SELFPAY ==
[2024-04-01 13:06] VITALS: BP 135/76; PULSE 70; RESP 16; TEMP 36.4
[2024-04-01] MEDS: 0.9% NaCl Peripheral Flush Adult/Peds IV (13:08)
[2024-04-01] MEDS: Iron Sucrose Complex (Venofer) 300 MG in 0.9% NaCl 250 ML 176.7 MG IV (13:37)
[2024-04-01 15:32] VITALS: BP 124/65; PULSE 55; RESP 16; TEMP 36.7; O2SAT 99
== END 2024-04-01 23:59 | disposition home or self-care (01) ==
LOC: MEDOUTP 13:03
PROVIDERS: Referring Provider Obstetrics & Gynecology; Visit Provider Obstetrics & Gynecology
DX: O90.81 Anemia of the puerperium (principal)
CPT/HCPCS: 96365; 96366; J1756; J7050; A4216

== ENCOUNTER → 2024-04-06 | Outpatient (CLI) | payer OTHER, SELFPAY | END | disposition home or self-care (01) | LOC: LABSPEC 11:36 | PROVIDERS: Referring Provider Advanced Practice Midwife; Visit Provider Advanced Practice Midwife | DX: R30.0 Dysuria (principal) | CPT/HCPCS: 87077; 87086; 87088; 87186 ==

== ENCOUNTER → 2024-04-13 | Outpatient (CLI) | payer OTHER, SELFPAY ==
[2024-04-13 16:29] LABS: Absolute Lymphocyte Count 2.06 X10^3/uL (0.83-4.51); Absolute Neutrophil Count 3.7 X10^3/uL (2.0-7.7); Basophil# 0.05 X10^3/uL; Basophil% 0.8 % (0-1); Eosinophil# 0.15 X10^3/uL; Eosinophils% 2.3 % (0-5); Hematocrit 37.5 % (37-47); Hemoglobin 11.4 g/dL (12.0-15.0); Lymphocyte # 2.06 X10^3/ul (0.83-4.51); Lymphocyte % 31.4 % (19-41); Mean Corp Hgb Conc 30.4 g/dL (32-36); Mean Corpuscular Hgb 25.6 pg (27.0-32.0); Mean Corpuscular Volume 84.3 fL (81-99); Mean Platelet Vol. 10.7 fl (6.2-12.0); Monocyte# 0.58 X10^3/uL; Monocyte% 8.8 % (0-10); NRBC Flagged by Analyzer 0 % (0-5); Neutrophil % 56.4 % (47-70); Platelet Count 313 K/mm3 (150-450); RBC Distribution Width CV 18.7 % (11.6-14.6); RBC Distribution Width SD 57.4 fl (35.1-43.9); Red Blood Count 4.45 M/mm3 (4.2-5.4); White Blood Count 6.6 K/mm3 (4.4-11.0)
== END | disposition home or self-care (01) ==
LOC: BWCLAB 14:47
PROVIDERS: Referring Provider Nurse Practitioner Women's Health; Visit Provider Nurse Practitioner Women's Health
DX: O90.81 Anemia of the puerperium (principal)
CPT/HCPCS: 36415; 85025

== ENCOUNTER → 2025-04-15 | Outpatient (CLI) | payer OTHER, SELFPAY | END | disposition home or self-care (01) | LOC: LABSPEC 16:31 | PROVIDERS: Visit Provider Nurse Practitioner Family | DX: Z12.4 Encounter for screening for malignant neoplasm of cervix (principal) | CPT/HCPCS: 87624; 88175; G0145 ==

== ENCOUNTER → 2025-04-29 | Outpatient (CLI) | payer OTHER, SELFPAY ==
--- NOTE | 2025-04-29 07:57 | US_ITS ---
PROCEDURE: TRANSVAGINAL NON- 04/29/2025 REASON FOR EXAM: DYSMENORRHEA TECHNIQUE: Procedure Code: USTVAG Modality: US Procedure: TRANSVAGINAL NON- COMPARISON: None FINDINGS: LMP: April 18, 2025. Measurements: Uterus: 7.7 cm x 4.9 cm x 4.3 cm with a volume of 83.8 mL Endometrial Thickness: 6 mm. It is hyperechoic. Right Ovary: 2.8 cm x 2.5 cm x 2.7 cm with a volume of 9.7 mL. Left Ovary: 3.4 cm x 2.3 cm x 2 cm with a volume of 8.1 mL. Uterus: Normal size, myometrial echotexture, and contour. Endometrium: Homogeneously thickened. Right ovary: There are 2 ovarian cysts. There is a 4.1 cm 3.7 cm 1.6 cm cyst as well as a 2.8 cm 2.6 cm 2.2 cm cyst. Left ovary: Normal size and echotexture. Other: Small amount of free fluid in the pelvis. US/Transvaginal Non- IMPRESSION: There are 2, right ovarian cysts in the small amount of free fluid in the right side of the pelvis. Follow-up recommended. Reading Location: [facility]
== END | disposition home or self-care (01) ==
PROVIDERS: Referring Provider Nurse Practitioner Family; Visit Provider Nurse Practitioner Family
DX: N94.6 Dysmenorrhea, unspecified (principal)
CPT/HCPCS: 76830

== ENCOUNTER → 2025-06-09 | Outpatient (CLI) | payer OTHER, SELFPAY ==
--- NOTE | 2025-06-09 08:08 | US_ITS ---
PROCEDURE: TRANSVAGINAL NON- 06/09/2025 REASON FOR EXAM: RE-EVAL OVARIAN CYST TECHNIQUE: Procedure Code: USTVAG Modality: US Procedure: TRANSVAGINAL NON- COMPARISON: None. FINDINGS: Uterus: The retroverted uterus measures 7.7 x 4.9 x 4.2 cm. Homogenous appearance without evidence of discrete cyst, echogenic calculi, or mass. The endometrial stripe measures 6 mm. Multiple simple nabothian cysts visualized in the cervix. Right ovary: The right ovary is normal in size measuring 2.8 x 2.7 x 2.5 cm. Solid mass measuring 4.1 x 3.7 x 1.6 cm. O-RADS 4. Blood flow to the adnexa is normal with arterial and venous waveforms documented. Left ovary: The left ovary is normal in size measuring 3.4 x 2.3 x 2 cm. No suspicious masses. Blood flow to the adnexa is normal with arterial and venous waveforms documented. No ascites. US/Transvaginal Non- IMPRESSION: 1. No evidence of acute ovarian torsion. 2. 4.1 cm solid right ovarian lesion. O-RADS 4. Consider MRI with O-RADS MRI score. O-RADS: Left Ovary O-RADS 1: Normal/Benign; categories as follows Category: Simple cyst <3 cm: Premenopausal, no follow up needed. O-RAD: Right Ovary O-RADS 4: Intermediate risk of malignancy; categories as fol lows Category: Solid smooth lesions with no shadowing and minimal to moderate col or flow (CS 2/3), gynecological evaluation needed. Reading Location: [id number]
== END | disposition home or self-care (01) ==
LOC: US 08:06
PROVIDERS: Referring Provider Nurse Practitioner Family; Visit Provider Nurse Practitioner Family
DX: N83.209 Unspecified ovarian cyst, unspecified side (principal)
CPT/HCPCS: 76830